=== PATIENT | male | born 1950 | race Caucasian/White ===

== ENCOUNTER → 2020-04-28 07:00 | Outpatient (CLI) | payer MEDICARE, OTHER, SELFPAY ==
[2020-04-13 09:46] VITALS: BMI 32.5
--- NOTE | 2020-04-28 07:01 | ECHOCS_ITS ---
Reason For Study: CAD/ASHD Procedure This was a 2D Doppler, Color Flow transthoracic echocardiogram. The study was technically difficult. Contrast injection was performed. Exam performed in department. Left Ventricle Normal LV size. Mild concentric left ventricular hypertrophy. Left ventricular systolic function is normal. The estimated ejection fraction is 65 %. Stage 2 diastolic dysfunction. No regional wall motion abnormalities noted. Right Ventricle Normal RV size. Normal systolic function. Atria Normal left atrium. Normal right atrium. Mitral Valve Normal mitral valve. Tricuspid Valve Normal tricuspid valve. Aortic Valve The aortic valve is not well visualized. Pulmonic Valve Normal pulmonic valve. Great Vessels Normal aortic root. The pulmonary artery is normal size. Normal inferior vena cava. Pericardium/Pleural No pericardial effusion. Medication Diluted definity 2ml given slow IV push to enhance endocardial definition. MMode/2D Measurements & Calculations LVIDd: 5.1 cm IVSd: 1.2 cm LA dimension: 4.4 cm LVIDs: 3.4 cm LVPWd: 1.3 cm RVDd: 3.9 cm FS: 32.5 % LAV(MOD-sp4): 54.9 ml LA A4 area: 19.2 cm2 RA A4 area: 15.6 cm2 Time Measurements MV dec time: 0.22 sec Doppler Measurements & Calculations MV E max stiven: 106.0 cm/sec Lat Peak E' Stiven: 8.7 cm/sec Med Peak E' Stiven: 8.8 cm/sec MV A max stiven: 63.3 cm/sec E/E' lat: 12.2 E/E' med: 12.1 MV E/A: 1.7 MV V2 max: 104.0 cm/sec MV P1/2t max stiven: 105.0 cm/sec Ao V2 max: 137.7 cm/sec MV max P.3 mmHg MV P1/2t: 121.9 msec Ao max P.6 mmHg MV V2 mean: 54.6 cm/sec MV dec slope: 252.1 cm/sec2 MV mean P.5 mmHg MV V2 VTI: 40.9 cm MVA(P1/2t): 1.8 cm2 LV V1 max: 133.3 cm/sec PA V2 max: 98.2 cm/sec LV V1 max P.1 mmHg Interpretation Summary Normal LV size. Left ventricular systolic function is normal. The estimated ejection fraction is 65 %. Mild concentric left ventricular hypertrophy. Stage 2 diastolic dysfunction. Contrast injection was performed. Ordering Physician: Newton Leon Referring Physician: Newton Leon Performed By: Tank Em RCS
--- NOTE | 2020-04-28 09:34 | STRESSREP ---
Stress Test Report Pharmacologic myocardial perfusion stress test. 70-year-old man with a history of coronary artery disease status post previous angioplasty and stenting of the left anterior descending artery. Medications: Aspirin, clopidogrel, carvedilol, losartan. Stress protocol: Resting EKG demonstrates sinus bradycardia with a rate of 57 bpm normal intervals are noted resting blood pressure is 102/62 mmHg. 0.4 mg of regadenoson was infused per usual protocol followed by rapid intravenous saline flush injection continuous EKG monitoring was performed. The maximum heart rate attained was 81 bpm which was 54% of maximum predicted heart rate the maximum workload was 1 metabolic equivalent. At rest there were no ST or T wave changes noted to suggest abnormal flow reserve at peak infusion nonspecific ST-T wave changes were noted with no meet the criteria for ischemia. Myocardial perfusion protocol. 14.9 mCi of technetium 99m sestamibi was injected at rest. 0.4 mg of regadenoson was infused per usual protocol. At peak infusion 45.0 mCi of technetium 99m sestamibi was injected stress images were obtained stress and rest images were reconstructed and compared in the short axis vertical long horizontal long axis. Gated images were also obtained Perfusion SPECT analysis: Review of the stress images demonstrate normal uptake of tracer noted in all areas of the myocardium the resting images similar demonstrate normal uptake of tracer noted in all areas of the myocardium. No areas of reversibility are noted suggest ischemia no previous infarct is noted. Gated SPECT analysis: The gated ejection fraction is 70%. Conclusion: Normal pharmacologic myocardial perfusion stress test. Preserved ejection fraction.
== END ==
PROVIDERS: Referring Provider Internal Medicine Cardiovascular Disease; Visit Provider Internal Medicine Cardiovascular Disease
DX: I25.10 Atherosclerotic heart disease of native coronary artery without angina pectoris (principal); Z95.5 Presence of coronary angioplasty implant and graft
CPT/HCPCS: 78452; 93017; 93306; A9500; Q9957; A4216; C8929; J2785

== ENCOUNTER → 2021-04-14 09:28 | Outpatient (CLI) | payer MEDICARE, OTHER, SELFPAY ==
[2021-04-14 11:29] LABS: AST(SGOT) 28 U/L (15-37); Alanine Aminotransfer ALT/SGPT 47 U/L (16-61); Albumin, Serum 3.7 g/dL (3.2-5.0); Alkaline Phosphatase 63 U/L (45-117); Cholesterol 116 mg/dL (200); Globulin 3.8 g/dL (2.2-4.2); High Density Lipoprotein 50 mg/dL; Protein, Total 7.5 g/dL (6.4-8.2); Triglycerides 82 mg/dL; Very Low Density Lipoprotein 16 mg/dL (5-40)
== END ==
PROVIDERS: Referring Provider Internal Medicine Cardiovascular Disease; Visit Provider Internal Medicine Cardiovascular Disease
DX: E78.00 Pure hypercholesterolemia, unspecified (principal); Z95.5 Presence of coronary angioplasty implant and graft; I25.10 Atherosclerotic heart disease of native coronary artery without angina pectoris
CPT/HCPCS: 36415; 80061; 80076

== ENCOUNTER → 2022-04-07 | Outpatient (CLI) | payer MEDICARE, OTHER, SELFPAY ==
[2022-04-07 13:58] LABS: AST(SGOT) 34 U/L (15-37); Alanine Aminotransfer ALT/SGPT 65 U/L (16-61); Albumin, Serum 3.8 g/dL (3.2-5.0); Alkaline Phosphatase 67 U/L (45-117); Bilirubin, Direct 0.32 mg/dL (0.00-0.30); Cholesterol 116 mg/dL (200); Globulin 3.5 g/dL (2.2-4.2); High Density Lipoprotein 54 mg/dL; Protein, Total 7.3 g/dL (6.4-8.2); Triglycerides 82 mg/dL; Very Low Density Lipoprotein 16 mg/dL (5-40)
== END | disposition home or self-care (01) ==
LOC: LAB 12:01
PROVIDERS: Referring Provider Internal Medicine Cardiovascular Disease; Visit Provider Internal Medicine Cardiovascular Disease
DX: E78.00 Pure hypercholesterolemia, unspecified (principal)
CPT/HCPCS: 36415; 80061; 80076

== ENCOUNTER → 2024-06-18 | Outpatient (CLI) | payer MEDICARE, SELFPAY ==
--- OUTSIDE RECORDS SUMMARY | 2024-06-18 06:45 | XMS RPT_ITS | CCD ---
Author Organization [facility] Inform ion [facility] Care Team Providers Care [employer] Manager Name Role Phone BordenFeNeelima Y Unavailable Anthony Elkins Attending Unavailable Noe Ham Referring Unavailable Noe Ham Primary Care Unavailable Anthony Elkins Admitting Unavailable Neelima Borden Unavailable Coty ALBRECHT, Stefany Hooper Unavailable Unavailable Darwin KENDRICK, Eduin Primary Care Provider [phone] IDA BOLTON Referring Unavailable DARWIN, EDUIN Primary Care Unavailable DARWIN, EDUIN Primary Care Unavailable VIJI IDA Referring Unavailable DARWIN, EDUIN Primary Care Unavailable VIJI IDA Referring Unavailable DARWIN, EDUIN Primary Care Unavailable VIJI IDA Referring Unavailable DARWIN, EDUIN Primary Care Unavailable IDA BOLTON Referring Unavailable DARWIN, EDUIN Primary Care Unavailable VIJI IDA Referring Unavailable DARWIN, EDUIN Primary Care Unavailable DARWIN, EDUIN Referring Unavailable DARWIN, EDUIN Referring Unavailable DARWIN, EDUIN Primary Care Unavailable Darwin KENDRICK, Eduin Primary Care Provider [phone] DARWIN, EDUIN Primary Care Unavailable ALBERT CARRANZA Attending Unavailab le DARWIN, EDUIN Referring Unavailable DARWIN, EDUIN Primary Care Unavailable SHAUN DELACRUZ Attending Unavailab le DARWIN, EDUIN Primary Care Unavailable SHAUN DELACRUZ Attending Unavailab le DARWIN, EDUIN Primary Care Unavailable SHAUN DELACRUZ Attending Unavailab le PROVIDER, UNKNOWN Referring Unavailable PROVIDER, UNKNOWN Primary Care Unavailable PROVIDER, UNKNOWN Primary Care Unavailable SHAUN DELACRUZ Referring Unavailab le PROVIDER, UNKNOWN Primary Care Unavailable IDA BOLTON Referring Unavailable PROVIDER, UNKNOWN Primary Care Unavailable ALBERT CARRANZA Referring Unavailab roxana PROVIDER, UNKNOWN Primary Care Unavailable IDA BOLTON Referring Unavailable ZULMA HOLBROOK Attending Unavailable SHAUN DELACRUZ Attending Unavailab SHAUN Grubbs Admitting Unavailab le PROVIDER, UNKNOWN Primary Care Unavailable PROVIDER, UNKNOWN Primary Care Unavailable Allergies Allergy Classification Reported Allergen(s) Allergy Type Date of Onset Reaction(s) Facility Contrast Media (1 source) Contrast media Substance Allergy [facility] Penicillins (antibiotic) (1 source) Amoxicillin Drug Allergy 7 [facility] Work Phone: telithromycin (1 source) telithromycin Drug Allergy [facility] (20 sources) amoxicillin; Translations: [AMOXICILLIN] drug allergy Rash [facility] Work Phone: [phone] (3 sources) CATH DYE drug allergy 1 Does ok with prept, Lips swelling [facility] Work Phone: [phone] (20 sources) Contrast media; Translations: [CONTRAST DYE] Propensity to adverse reactions [facility] Work Phone: (20 sources) telithromycin; Translations: [TELITHROMYCIN] Drug Allergy [facility] Work Phone: Medications Current Medications Medication Drug Class(es) Dates Sig (Normalized) Sig (Original) acetaminophen 325 mg / oxyCODONE hydrochloride 5 mg oral tablet (2 sources) Opioid Agonist Start: 06-29-2023 End: 07-13-2023 take 1-2 tablets by mouth every four hours as needed oxyCODONE-acetamin ophen (PERCOCET) 5-325 mg tablet Indications: pain Take 1-2 tablets by mouth every 4 hours as needed for up to 7 days. 28 tablet 0 06/29/2023 07/13/2023 Active Comment on above: Take 1-2 tablets by mouth every 4 hours as needed for up to 7 days. atorvastatin 40 mg oral tablet (20 sources) HMG-CoA Reductase Inhibitor Start: 03-14-2023 atorvastatin (LIPITOR) 40 mg tablet 03/14/2023 Active Start: 01-08-2015 take 1 tablet by olivia once daily ATORVASTATIN CALCIUM 40 MG TABS One tablet by mouth daily ATORVASTATIN CALCIUM [id number] Fatemeh Chavez PA-C 12 hr buPROPion hydrochloride 150 mg extended release oral tablet (14 sources) Aminoketone Start: 03-27-2023 buPROPion SR (ZYBAN SR; WELLBUTRIN SR) 150 mg 12 hr tablet 03/27/2023 Active cholecalciferol 0.025 mg oral tablet (14 sources) Vitamin D take 1 tablet by mouth once daily cholecalciferol (VITAMIN D) 1,000 unit tab tablet Take 1,000 Units by mouth once daily. Active Comment on above: Take 1,000 Units by mouth once daily. clopidogrel 75 mg oral tablet (20 sources) P2Y12 Platelet Inhibitor Start: 01-23-2007 take 1 tablet by mouth two times weekly clopidogrel (PLAVIX) 75 mg ORAL Tab Take 75 mg by mouth two times a week. Sun and 0 01/23/2007 Active Start: 01-23-2007 take 1 tablet by [facility] once daily clopidogrel (PLAVIX) 75 mg ORAL Tab Take one(1) tablet daily. 0 01/23/2007 Active Comment on above: Take one(1) tablet d aily. Take 75 mg by mouth two times a week. Sun and docusate sodium 100 mg oral capsule (13 sources) Start: 06-29-20 23 take 1 capsule by mouth twice daily docusate sodium (COLACE) 100 mg capsule Take 1 capsule by mouth two times a day. 40 capsule 06/29/2023 Active Comment on above: Take 1 capsule by [facility] two times a day. enalapril maleate 5 mg oral tablet (20 sources) Angiotensin Converting Enzyme Inhibitor Start: 01-24-20 07 enalapril (VASOTEC) 5 mg ORAL Tab Take by mouth. 0 01/23/2007 Active Comment on above: Take one(1) tablet t wice daily. Take by mouth. ibuprofen 200 mg oral tablet (11 sources) Nonsteroidal Anti-inflammatory Drug take 1 tablet by mouth every six hours as needed ibuprofen (MOTRIN) 200 mg tablet Take 200 mg by mouth every 6 hours as needed for pain. Active Comment on above: Take 200 mg by mouth every 6 hours as needed for pain. multivitamin tablet (20 sources) take 1 tablet by mouth once daily multivitamin tablet Take 1 tablet by mouth once daily. Active take 1 tablet by mouth once ben y multivitamin tablet Take 1 tablet by mouth once daily. 0 Active Comment on above: Take 1 tablet by olivia th once daily. ondansetron 4 mg oral tablet (13 sources) Serotonin-3 Receptor Antagonist Start: take 1 tablet by mouth every eight hours as needed ondansetron (ZOFRAN) 4 mg tablet Take 1 tablet by mouth every 8 hours as needed. 10 tablet 06/29/2023 Active Comment on above: Take 1 tablet by olivia th every 8 hours as needed. vit C/E/Zn/coppr/lutein/z eaxan (PRESERVISION AREDS-2 ORAL) (14 sources) vit C/E/Zn/coppr/lutein/ zeaxan (PRESERVISION AREDS-2 ORAL) Take by mouth. Active vit C/E/Zn/coppr /lutein/zeaxan (PRESERVISION AREDS-2 ORAL) Take by mouth. 0 Active Comment on above: Take by mouth. Completed/Discontinued Medications Medication Drug Class(es) Dates Sig (Normalized) Sig (Original) ascorbic acid 1000 mg oral tablet (17 sources) Vitamin C Start: 09-10-2015 take 1 tablet by mouth once daily VITAMIN C 1000 MG TABS One tablet by mouth daily ASCORBIC ACID [id number] Newton Leon MD take 500 mg by mouth once daily Ascorbic Acid (VITAMIN C) 500 mg chew Take 500 mg by mouth once daily. Active Comment on above: Take 500 mg by mouth once daily. aspirin 325 mg oral tablet (20 sources) Platelet Aggregation Inhibitor, Nonsteroidal Anti-inflammatory Drug Start: 01-03-2011 take 1 tablet by mouth once daily ASPIRIN 325 MG TABS One tablet by mouth daily ASPIRIN [id number] Tammy Liu Start: 01-03-2011 take 1 tablet by olivia th once daily ASPIRIN EC 81 MG TBEC One tablet by mouth daily ASPIRIN [id number] MARIOLA SanchezC take 1 tablet by olivia th once daily aspirin 81 mg chewable tablet Take 81 mg by mouth once daily. Active Comment on above: Take 81 mg by mouth once daily. carvedilol 6.25 mg oral tablet (20 sources) alpha-Adrenergic Giovanna, beta-Adrenergic Giovanna Start: 01-03-2011 take 1 tablet by mouth twice daily COREG 6.25 MG TABS One tablet by mouth twice daily CARVEDILOL [id number] Fatemeh Chavez PA-C take 3.125 mg by olivia th twice daily at mealtime carvedilol (COREG) 6.25 mg tablet Take 3.125 mg by mouth twice daily with meals. Active Comment on above: Take 3.125 mg by olivia th twice daily with meals. losartan potassium 100 mg oral tablet (20 sources) Angiotensin 2 Receptor Giovanna Start: 03-20-2013 take 1 tablet by mouth once daily LOSARTAN POTASSIUM 100 MG TABS One tablet by mouth daily LOSARTAN POTASSIUM [id number] Newton Leon MD Start: 03-20-2013 take 1 tablet by olivia th once daily LOSARTAN POTASSIUM 50 MG TABS One tablet by mouth daily LOSARTAN POTASSIUM [id number] Fatemeh Chavez PA-C Comment on above: Take by mouth. MULTIPLE VITAMIN (1 source) Start: 01-04-20 11 take 1 tablet by mouth once daily MULTIVITAMINS TABS One tablet by mouth daily MULTIPLE VITAMIN [id number] Tammy Liu MULTIPLE VITAMIN (2 sources) Start: 01-04-20 11 take 1 tablet by mouth once daily MULTIVITAMINS TABS One tablet by mouth daily MULTIPLE VITAMIN [id number] Tammy Liu 24 hr nitroglycerin 0.4 mg/hr transdermal system (20 sources) Nitrate Vasodilator Start: 01-04-20 11 NITROGLYCERIN 0.4 MG/HR PT24 1 tablet under tongue every 5 min up to 3 X NITROGLYCERIN [id number] Tammy Liu Start: 01-23-2007 nitroglycerin sublingual 0.4 mg SUBLINGUAL Subl Dissolve under the tongue. Usual dose for angina is 1 tablet every 5 minutes for maximum of 3 doses in 15 minutes. 0 01/23/2007 Active Comment on above: Dissolve one(1) tabl et under the toungue as needed for chest pain,every 5 min x3 Dissolve under the t ongue. Usual dose for angina is 1 tablet every 5 minutes for maximum of 3 doses in 15 minutes. olmesartan medoxomil 40 mg oral tablet (6 sources) Angiotensin 2 Receptor Giovanna Start: 1 End: 3 take 1 tablet by mouth once daily BENICAR 40 MG TABS One tablet by mouth daily OLMESARTAN MEDOXOMIL [id number] Newton Leon MD rosuvastatin calcium 20 mg oral tablet (20 sources) HMG-CoA Reductase Inhibitor Start: 1 take 1 tablet by mouth once daily CRESTOR 10 MG TABS One tablet by mouth daily ROSUVASTATIN CALCIUM [id number] Tammy Liu Start: 01-23-2007 End: 01-08-2015 rosuvastatin (CRESTOR) 20 mg ORAL Tab Take by mouth. 0 01/23/2007 Active Comment on above: Take one(1) tablet d aily. Take by mouth. 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] Onset: 01-03-2011 01-03-2011 Chronic Coronary atherosclerosis and other heart disease (20 sources) Atherosclerotic heart disease of [place] coronary artery without angina pectoris; Translations: [Coronary arteriosclerosis] Onset: 01-03-2011 Resolved: 09-10-2015 10-05-2016 Chronic Diseases of white blood cells (2 sources) Leukocytosis; Translations: [Elevated white blood cell count, unspecified] Onset: 2024 2024 Chronic Disorders of lipid metabolism (19 sources) Hyperlipidemia; Translations: [Hyperlipidemia, unspecified] Onset: 01-03-2011 01-03-2011 Chronic Esophageal disorders (6 sources) Gastroesophageal reflux disease; Translations: [Gastro-esophageal reflux disease without esophagitis] Onset: 01-03-2011 Resolved: 09-10-2015 01-03-2011 Chronic Essential hypertension (20 sources) Hypertensive disorder; Translations: [Essential hypertension] Onset: 01-03-2011 01-03-2011 Chronic Other connective tissue disease (2 sources) History of operative procedure on shoulder; Translations: [Presence of unspecified artificial shoulder joint] 05-14-2023 Chronic Other connective tissue disease (18 sources) History of reverse prosthetic total arthroplasty of left shoulder; Translations: [Presence of left artificial shoulder joint] Onset: 07-09-2023 07-09-2023 Chronic Other connective tissue disease (2 sources) Presence of left artificial shoulder joint; Translations: [Status post reverse total replacement of left shoulder] Onset: 06-29-2023 Chronic Other connective tissue disease (1 source) Presence of unspecified artificial shoulder joint; Translations: [Status post reverse total shoulder replacement, unspecified laterality] Onset: 07-06-2023 Chronic Other connective tissue disease (1 source) Rotator cuff arthropathy of left shoulder; Translations: [Unspecified rotator cuff tear or rupture of left shoulder, not specified as traumatic] 05-14-2023 Episodic Other hematologic conditions (1 source) Other abnormality of red blood cells; Translations: [Other abnormality of red blood cells] Onset: 01-03-2024 Episodic Other hematologic conditions (1 source) Erythrocytosis; Translations: [Secondary polycythemia] 2024 Episodic Other hematologic conditions (1 source) Secondary polycythemia; Translations: [Erythrocytosis] Onset: 2024 Episodic Other nervous system disorders (2 sources) Other chronic pain; Translations: [Chronic left shoulder pain] Onset: 04-27-2023 Chronic Other non-traumatic joint disorders (5 sources) Chronic pain of left upper limb; Translations: [Pain in left shoulder] 04-02-2023 Episodic Other non-traumatic joint disorders (4 sources) Stiffness of left shoulder; Translations: [Stiffness of left shoulder, not elsewhere classified] 07-16-2023 Episodic Other nutritional; endocrine; and metabolic disorders (6 sources) Body mass index (BMI) 30.0-30.9, adult; Translations: [Body mass index (BMI) 31.0-31.9, adult] Onset: 07-02-2014 04-12-2017 Chronic Other nutritional; endocrine; and metabolic disorders (2 sources) Body mass index (BMI) 31.0-31.9, adult; Translations: [Body mass index (BMI) 31.0-31.9, adult] Onset: 07-02-2014 04-13-2016 Chronic Other nutritional; endocrine; and metabolic disorders (2 sources) Body mass index (BMI) 32.0-32.9, adult; Translations: [Body mass index (BMI) 32.0-32.9, adult] Onset: 07-02-2014 07-02-2014 Chronic Other nutritional; endocrine; and metabolic disorders (2 sources) Body mass index 30+ - obesity; Translations: [Body mass index (BMI) 30.0-30.9, adult] Onset: 07-02-2014 09-10-2015 Chronic Other nutritional; endocrine; and metabolic disorders (15 sources) Suyil-9-ebkuqzbjqrx deficiency; Translations: [Vdcfz-0-rcdkbnjurjj deficiency] Onset: 06-13-2023 06-13-2023 Chronic Other nutritional; endocrine; and metabolic disorders (1 source) Dkrvf-9-gihbpvhtgwv deficiency; Translations: [Heterozygous alpha 1-antitrypsin deficiency (HCC)] Onset: 06-13-2023 Chronic Substance-related disorders (3 sources) Tobacco dependence syndrome; Translations: [Nicotine dependence, unspecified, uncomplicated] Onset: 01-03-2011 01-03-2011 Chronic Substance-related disorders (16 sources) Tobacco dependence caused by cigarettes; Translations: [Nicotine dependence, cigarettes, with other nicotine-induced disorders] Onset: 07-14-2015 06-13-2023 Chronic Unclassified (2 sources) Long-term drug therapy; Translations: [Other half-way (current) drug therapy] Onset: 01-03-2011 01-03-2011 Unclassified (1 source) Physical Therapy Onset: 08-06-2023 Past or Other Problems Problem Classification Problem Date Documented Date Episodic/Chronic Allergic reactions (15 sources) Allergy to bee venom; Translations: [Bee allergy status] Onset: 3 06-13-2023 Episodic Appendicitis and other appendiceal conditions (5 sources) Acute appendicitis; Translations: [Unspecified acute appendicitis] Onset: 6 Resolved: 6 03-15-2016 Episodic Cardiac dysrhythmias (1 source) Bradycardia, unspecified; Translations: [Severe sinus bradycardia] Onset: Episodic Coronary atherosclerosis and other heart disease (5 sources) Coronary angioplasty status; Translations: [History of myocardial infarction] Onset: 1 01-03-2011 Episodic Diabetes mellitus without complication (1 source) Impaired fasting glucose; Translations: [Impaired fasting glucose] Onset: 3 Episodic Other aftercare (1 source) Other intermediate manager (current) drug therapy; Translations: [Other half-way (current) drug therapy] Onset: 1 01-03-2011 Episodic Other lower respiratory disease (6 sources) Dyspnea; Translations: [Dyspnea, unspecified] Onset: 1 Resolved: 6 09-10-2015 Episodic Other non-traumatic joint disorders (19 sources) Pain in left shoulder; Translations: [Pain in joint, shoulder region] Onset: 3 07-06-2023 Episodic Other non-traumatic joint disorders (1 source) Stiffness of left shoulder, not elsewhere classified; Translations: [Shoulder stiffness, left] Onset: 3 Episodic Other nutritional; endocrine; and metabolic disorders (6 sources) Body mass index (BMI) 29.0-29.9, adult; Translations: [Body mass index (BMI) 29.0-29.9, adult] Onset: 5 Resolved: 6 01-05-2015 Episodic Other screening for suspected conditions (not mental disorders or infectious disease) (7 sources) Electrocardiogram abnormal; Translations: [History of myocardial infarction] Onset: 1 Resolved: 6 09-10-2015 Episodic Residual codes; unclassified (3 sources) Family history of ischemic heart disease and other diseases of the circulatory system; Translations: [Family history of ischemic heart disease and other diseases of the circulatory system] 07-02-2014 Episodic Results Test Name Value Interpretation Reference Range Facility BCR/ABL1 P190 NCN P210 % IS MR Cardenas 2024 BCR/ABL1 P190 NCN(%BCR/ABL1:ABL1) N/A Normal [facility] Comment on above: Order Comment: Speci men Type: BLOOD SPECIMENOrdering Facility: [facility] Address: [address] [place] [address] Performed By: #### I SMROKHIREN ####[facility] LABCLIA [id number] [id number] [place]#### [id number] ####CLAR[facility] ILLUMINA LIMSCLIA [id number] [place] [address] [place] BCR/ABL1 P210 %IS N/A Normal [facility] Comment on above: Order Comment: Speci men Type: BLOOD SPECIMENOrdering Facility: [facility] Address: [address] [place] [address] Performed By: #### I SMRNCNPB ####[facility] LABCLIA [id number] [place] [address] [place]#### [id number] ####[facility] ILLUMINA LIMSCLIA [id number] [place] [address] [place] BCR/ABL1 P210 MR N/A [facility] Comment on above: Order Comment: Speci men Type: BLOOD SPECIMENOrdering Facility: [facility] Address: [address] [place] [address] Performed By: #### I SMRNCNPB ####[facility] LABCLIA [id number] [place] [address] [place]#### [id number] ####CL[facility] ILLUMINA LIMSCLIA [id number] [place] [address] [place] BCR/ABL1 P210 AND P190 DIAGN OSTIC PCR BLOODon 2024 BCR/ABL1 P210 AND P190 DIAGNOSTIC PCR BLOOD RESULT Normal [facility] Comment on above: Order Comment: Speci men Type: BLOOD SPECIMEN Ordering Facility: [facility] Address: [address] [place] [address] Result Comment: BCR/ ABL1 p210 and p190 Diagnostic PCR Laboratory Accession Number: [id number] Sample Type: Peripheral Blood Result: NOT DETECTED; negative for BCR/ABL1 p210 and p190 fusion transcripts. P190 NCN: N/A P210 MR: N/A %IS: N/A Interpretation: RT-PCR studies are negative for BCR/ABL1 p210 and p190 fusion transcripts. Very rare fusion transcripts, such as those involving exon 3 of ABL1 and alternate BCR fusion sites including the micro- breakpoint cluster region (p230 transcript), are not detected by this test. If clinical suspicion persists despite a negative test, the possibility of these very rare fusions can be further evaluated. In these cases, a bone marrow biopsy with cytogenetic karyotyping may be performed, followed by other more specific testing as clinically warranted and in consultation with the case hematopathologist and/or Molecular Pathology sign-out Staff. Limitations: This test detects the most common fusion transcripts, p210 (e13a2, e14a2) and p190 (e1a2, e1a3), which combined account for about 98-99 percent of BCR/ABL1 positive chronic myeloid leukemia and B-acute lymphoblastic leukemia/lymphoma cases. Other very rare fusion transcripts, such as those involving exon 3 of ABL1 and alternate BCR fusion sites including the micro-breakpoint cluster region (p230 transcript), are not detected by this test. Methodology: RNA was extracted from this sample, and cDNA prepared by reverse business development sales executive. Real time PCR was performed in two separate reactions, using primers for e13a2 and/or e14a2 BCR/ABL1 fusion transcripts and ABL1 transcripts for p210 detection and primers for e1a2 BCR/ABL1 fusion transcripts and ABL1 transcripts for p190 detection (QuantideX BCR/ABL IS assay, [employer], [place], [place]). This assay has a limit of quantification and limit of detection of 0.002 percent IS or MR4.7 for p210 fusion transcripts, and a limit of quantification of 0.0036 percent (LR4.4) and limit of detection of 0.0025 percent (LR4.6) for p190 transcripts. Levels detected above or below the assays' limits of quantitation are resulted as DETECTED and quantitation indicated as greater than or less than the limits of quantitation for the IS percent, MR level and NCN, respectively. Disclaimer: This test was developed and its performance characteristics determined by [facility] [place] ([facility]). It has not been cleared or approved by the FDA. [facility] is regulated under CLIA as certified to perform high- complexity testing. This test is used for clinical purposes. It should not be regarded as investigational or for research. Testing and interpretation performed at [facility], [address] [place] [id number]. CLIA Number: [id number] As reviewed by Jorge Grady MD Performed By: #### I SMRNCNPB #### [facility] LAB CLIA [id number] [address] [place] [address] [place] #### BCRPB1 #### [facility] LIMS CLIA [id number] [address] [place], [place] [id number] [facility] [place] CNOVSPon 2024 CNOVSP Visit (SP) Office (HEMMED) MATTEO THOMPSON ([id number]) 1950 [address] [facility] Date Time Provider Department 02/13/24 9:30 AM ALBERT CARRANZA HEMMED During your visit today, we recorded the following information about you: Temperature Pulse Respiration Blood pressure 97.2 degrees 68/minute 16/minute 127/75 Weight 98.3 kg Albert Carranza MD 2024 1:53 PM Signed HISTORY OF PRESENT ILLNESS: Matteo Thompson is a 73 year old male referred for abnormal CBC. Patient reports being at his baseline state of health. Previously had some intended weight loss (10 lbs) But no weight loss recently. He is a long-term smoker but is down to 5 cigarettes/day. He also drinks about 5-7 drinks of alcohol per week (sometimes more socially). ASSESSMENT/PLAN: #Intermittent mild leukocytosis #Erythrocytosis #Intermittent mild thrombocytopenia His abnormal lab values have been at least intermittently present for the better part of the past decade which is overall reassuring. I suspect the leukocytosis and erythrocytosis is 2/[address] A/P from 2016 dmeonstrated hepatic steatosis, therefore suspect his mild thrombocytopenia is 2/2 liver disease. When corrected for albumin, his calcium level is normal. Regardless, will obtain lab work to help rule-out more concerning diagnoses. If negative, would not recommend phlebotomy unless hct >55% and even then the clinical benefit is controversial. -BCR/ABL, MPN panel, EPO level Follow-up as needed if above work-up is negative Medical Decision Making: Problems: Moderate: New problem with uncertain prognosis Data: Unique source(s) for external note(s) reviewed: 1 Unique test result(s) reviewed: 1 Unique test(s) ordered: 1 Medical Decision Making Level: 4 - Moderate Written and verbal health teaching given to patient, patient verbalizes understanding and agrees with treatment plan. PAST MEDICAL HISTORY Diagnosis Date Appendicitis, acute 02/11/2016 Chronic obstructive pulmonary disease (COPD) (HCC) Coronary artery disease Heart attack (HCC) HLD (hyperlipidemia) Hypertension PAST SURGICAL HISTORY Procedure Laterality Date APPENDECTOMY 02/11/2016 CARDIAC CATHETERIZATION HX 2005 stent HERNIA REPAIR HX 2010 laparoscopic - unsure ORTHOPEDICS SURGERY HX Left knee FAMILY HISTORY Problem Relation Age of Onset Anesthesia Problems No Family History Social History Tobacco Use Smoking status: Every Day Packs/day: 0.50 Years: 30.00 Additional pack years: 0.00 Total pack years: 15.00 Types: Cigarettes Vaping Use Vaping Use: Never used Substance Use Topics Alcohol use: Yes Alcohol/week: 3.0 standard drinks of alcohol Types: 3 Cans of Beer (12oz) per week ALLERGIES: ALLERGIES Allergen Reactions Amoxicillin Rash Contrast Dye Swelling Ketek [Telithromyci* Rash CURRENT OUTPATIENT MEDICATIONS: ibuprofen (MOTRIN) 200 mg tablet Take 200 mg by mouth every 6 hours as needed for pain. docusate sodium (COLACE) 100 mg capsule Take 1 capsule by mouth two times a day. ondansetron (ZOFRAN) 4 mg tablet Take 1 tablet by mouth every 8 hours as needed. atorvastatin (LIPITOR) 40 mg tablet buPROPion SR (ZYBAN SR; WELLBUTRIN SR) 150 mg 12 hr tablet losartan (COZAAR) 50 mg tablet Take by mouth. cholecalciferol (VITAMIN D) 1,000 unit tab tablet Take 1,000 Units by mouth once daily. Ascorbic Acid (VITAMIN C) 500 mg chew Take 500 mg by mouth once daily. vit C/E/Zn/coppr/lutein/ze axan (PRESERVISION AREDS-2 ORAL) Take by mouth. aspirin 81 mg chewable tablet Take 81 mg by mouth once daily. carvedilol (COREG) 6.25 mg tablet Take 3.125 mg by mouth twice daily with meals. multivitamin tablet Take 1 tablet by mouth once daily. rosuvastatin (CRESTOR) 20 mg ORAL Tab Take by mouth. enalapril (VASOTEC) 5 mg ORAL Tab Take by mouth. clopidogrel (PLAVIX) 75 mg ORAL Tab Take 75 mg by mouth two times a week. Mon and Th nitroglycerin sublingual 0.4 mg SUBLINGUAL Subl Dissolve under the tongue. Usual dose for angina is 1 tablet every 5 minutes for maximum of 3 doses in 15 minutes. REVIEW OF SYSTEMS: Review of systems unremarkable except as noted in the HPI. PHYSICAL EXAMINATION: VITAL SIGNS: There were no vitals taken for this visit. Physical Exam Constitutional: General: He is not in acute distress. Appearance: Normal appearance. HENT: Head: Normocephalic and atraumatic. Eyes: Extraocular Movements: Extraocular movements intact. Pulmonary: Effort: Pulmonary effort is normal. No respiratory distress. Skin: Coloration: Skin is not jaundiced. Neurological: General: No focal deficit present. Mental Status: He is alert. Mental status is at baseline. LABS: Basic Labs: Hemoglobin Date Value Ref Range Status 01/03/2024 17.2 (H) 13.0 - 17.0 g/dL Final 05/25/2023 16.8 13.0 - 17.0 g/dL Final 0 (more content not included)... Normal [facility] EPO SerPl-aCncon 2024 Erythropoietin (EPO) Qn 7.5 mIU/mL Normal 2.6-18.5 [facility] Comment on above: Order Comment: [place] Type: BLOOD SPECIMEN Ordering Facility: [facility] Address: [address] [place] [address] Performed By: #### 1 5061-5 #### [facility] CLIA [id number] [address] [place], [place] [address] [place] [address] [place] MYELOPROLIFERATIVE NEOPLASM PANEL BLOODon 2024 MYELOPROLIFERATIVE NEOPLASM PNL PERIPHERAL BLOOD Normal [facility] Comment on above: Order Comment: [place] Type: BLOOD SPECIMENOrdering Facility: [facility] Address: [address] [place] [address] Result Comment: Myel oproliferative Neoplasm Panel Laboratory Accession Number: [id number] Sample Type: Peripheral Blood Result: CALR - No variant detected (Reference sequence: [id number]). JAK2 - No variant detected (Reference sequence: [id number]). MPL - No variant detected (Reference sequence: [id number]). Interpretation: No variants were identified in CALR exon 9, JAK2 exons 12-16 or MPL exons 10 and 11. This result does not exclude the possibility of a myeloproliferative neoplasm. If clinically indicated, additional testing for a broader panel of myeloid neoplasm-associated mutations (i.e., Hematologic Neoplasms NGS panel) may be helpful to further assess for clonal hematopoiesis. Methodology: Genomic DNA extracted from blood or bone marrow was subject to an amplicon based method to enrich for CALR exon 9, JAK2 exons 12-16 and MPL exons 10 and 11, including the flanking canonical splicing sites. Pair-end DNA sequencing was performed on the Illumina instrument ([place], [place]). A customized bioinformatic pipeline was used to align the sequencing reads to the reference human genome (GRCh37/hg19). Benign common polymorphisms are not reported. Limitations: Sequence changes outside the analyzed regions, including intronic, noncoding, and splice-site variants, will not be identified by this test. The lower limit of detection of this assay is approximately 1% allele proportion for the JAK2 V617F, JAK2 exon 12, CALR Type 1 (p.N277Rio38, c.1099_1150del) and Type 2 (p.G580Bcw63, c.1154_1155insTTGTC), MPL W515 variants and approximately 5% allele proportion for all other variants. Variants below these limits of detection may be reported at the discretion of the molecular pathology professional staff if the technical quality of the sequencing is sufficient at that location and the call is unequivocal. Common germline polymorphisms are considered to represent wild type sequence and are not included in this report. The presence of nucleotide polymorphisms or variants at the annealing sites of the primers used in amplification and sequencing may cause allele drop-outs, hence a false negative result is possible. Disclaimer: This test was developed and its performance characteristics determined by [facility] [place] ([facility]). It has not been cleared or approved by the FDA. [facility] is regulated under CLIA as certified to perform high- complexity testing. This test is used for clinical purposes. It should not be regarded as investigational or for research. Testing and interpretation performed at [facility], [address] [place] [address]. [place] Number: [id number] References: 1) Chani DA, Debbie A, Lolita R, Chris J, Ban MJ, Roxana Kowalski MM, et al. The 2016 revision to the World Health Organization (WHO) classification of myeloid neoplasms and acute leukemia. Blood 2016;127: 2391-405. 2) NCCN Guidelines, Myeloproliferative Neoplasms, Version 2.2018. 3) Cesar Juarez, Hudson HERRERA. Genomics of Myeloproliferative Neoplasms. J Clin Oncol. 2017 Nov 13;35(9):947-954. As reviewed by Soni Jeffrey, PhD, HCLD Performed By: #### M PNP ####[facility] [id number] [address] OF [facility] Catalino 01-28-2024 CNPN Telephone (HEMAWS) MATTEO THOMPSON ([id number]) 1950 [address] [facility] Date Time Provider Department 01/28/24 BENJAMIN SCHMITT During your visit today, we recorded the following information about you: Ana Paula Quiroz 01/28/2024 8:55 AM Signed Patient called stating Dr. Granados referred him to hem/onc. No orders/referral listed. Please advise. 09/18/23 office visit shows visit diagnosis - Visit Diagnoses Tobacco abuse counseling Body mass index [BMI] 36.0-36.9, adult Athscl heart disease of [place] coronary artery w/o ang pctrs Chronic obstructive pulmonary disease, unspecified Vitamin D deficiency, unspecified Impaired fasting glucose Hyperlipidemia, unspecified Other thrombophilia Bee allergy status Hyperparathyroidism, unspecified Chronic diastolic (congestive) heart failure Abnormal radiologic findings on dx imaging of r kidney Hypercalcemia Nicotine dependence, cigarettes, w oth disorders Primary generalized (osteo)arthritis Bradycardia, unspecified Alcohol use, unsp with unspecified alcohol-induced disorder Other abnormality of red blood cells Essential (primary) hypertension Elevated white blood cell count, unspecified Barb Malik LPN 01/28/2024 8:58 AM Addendum Patient will need to have a referral sent from that office. Dr. Granados is not a F physician. DIMPLE Astudillo, Ana Paula 01/28/2024 9:22 AM Signed Spoke with Dr. Granados's office. They will fax labs and referral to [facility]. She will fax last office visit note once provider signs it. Bing Gregg LPN 01/29/2024 8:41 AM Signed New Pt. Referral, pt. Contacted and informed he would rather be seen in [place] since it is closer to his home. Contacted Dr. Bethea office to have information sent to [facility] [place]. DIMPLE Dee Jennifer 01/29/2024 8:57 AM Signed Called patient and gave him the number to call for new patient consult. Allergies As of Date: 01/28/2024 Noted Allergy Reaction AMOXICILLIN 01/23/2007 2 - Rash CONTRAST DYE 01/23/2007 7 - Swelling KETEK (TELITHROMYCIN) 01/23/2007 2 - Rash Date Reviewed: 08/10/2023 Reviewed by: Lacey Meadows MA - Fully Assessed Reason for Visit: New Patient [172] Prescriptions as of 02/06/2024 - ibuprofen (MOTRIN) 200 mg tablet Take 200 mg by mouth every 6 hours as needed for pain. - docusate sodium (COLACE) 100 mg capsule Take 1 capsule by mouth two times a day. - ondansetron (ZOFRAN) 4 mg tablet Take 1 tablet by mouth every 8 hours as needed. - atorvastatin (LIPITOR) 40 mg tablet - buPROPion SR (ZYBAN SR; WELLBUTRIN SR) 150 mg 12 hr tablet - losartan (COZAAR) 50 mg tablet Take by mouth. - cholecalciferol (VITAMIN D) 1,000 unit tab tablet Take 1,000 Units by mouth once daily. - Ascorbic Acid (VITAMIN C) 500 mg chew Take 500 mg by mouth once daily. - vit C/E/Zn/coppr/lutein/ze axan (PRESERVISION AREDS-2 ORAL) Take by mouth. - aspirin 81 mg chewable tablet Take 81 mg by mouth once daily. - carvedilol (COREG) 6.25 mg tablet Take 3.125 mg by mouth twice daily with meals. - multivitamin tablet Take 1 tablet by mouth once daily. - rosuvastatin (CRESTOR) 20 mg ORAL Tab Take by mouth. - enalapril (VASOTEC) 5 mg ORAL Tab Take by mouth. - clopidogrel (PLAVIX) 75 mg ORAL Tab Take 75 mg by mouth two times a week. Mon and Thurs - nitroglycerin sublingual 0.4 mg SUBLINGUAL Subl Dissolve under the tongue. Usual dose for angina is 1 tablet every 5 minutes for maximum of 3 doses in 15 minutes. 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 Encounter Status:Closed by ANA PAULA QUIROZ on 02/06/24 Normal [facility] CBC W Auto Differential pane l (Bld)on 01-03-2024 Basophils (Bld) [#/Vol] 0.05 10*3/uL Normal <0.11 [facility] Comment on above: Order Comment: Speci men Type: BLOOD SPECIMEN Ordering Facility: Rufus Granados MD Address: [address] [place] [address] Performed By: #### 5 7021-8 #### [facility] CLIA [id number] [address] [place] [address] [place] Basophils/100 WBC (Bld) 0.4 % Normal [facility] Comment on above: Order Comment: Speci men Type: BLOOD SPECIMEN Ordering Facility: Rufus Granados MD Address: [address] [place] [address] Performed By: #### 5 7021-8 #### [facility] CLIA [id number] [address] [place] [address] [place] Differential cell count method Nom (Bld) Auto Normal [facility] Comment on above: Order Comment: Speci men Type: BLOOD SPECIMEN Ordering Facility: Rufus Granados MD Address: [address] [place] [address] Performed By: #### 5 7021-8 #### [facility] CLIA [id number] [address] [place] [id number] [place] Eosinophils (Bld) [#/Vol] 0.22 10*3/uL Normal <0.46 [facility] Comment on above: Order Comment: Speci men Type: BLOOD SPECIMEN Ordering Facility: Rufus Granados MD Address: [address] [place] [address] Performed By: #### 5 7021-8 #### [facility] CLIA [id number] [address] [place] Eosinophils/100 WBC (Bld) 1.9 % Normal [facility] Comment on above: Order Comment: Speci men Type: BLOOD SPECIMEN Ordering Facility: Rufus Granados MD Address: [address] [place] [address] Performed By: #### 5 7021-8 #### [facility] CLIA [id number] [address] [place] Erythrocyte distribution width (RBC) [Ratio] 12.8 % Normal 11.5-15.0 [facility] Comment on above: Order Comment: Speci men Type: BLOOD SPECIMEN Ordering Facility: Rufus Granados MD Address: [address] [place], [place] [address] Performed By: #### 5 7021-8 #### [facility] CLIA [id number] [address] [place] [address] [place] Hematocrit (Bld) [Volume fraction] 51.2 % High 39.0-51.0 [facility] Comment on above: Order Comment: Speci men Type: BLOOD SPECIMEN Ordering Facility: Rufus Granados MD Address: [address] [place] [address] Performed By: #### 5 7021-8 #### [facility] CLIA [id number] [address] [place] [address] [place] Hemoglobin (Bld) [Mass/Vol] 17.2 g/dL High 13.0-17.0 [facility] Comment on above: Order Comment: Speci men Type: BLOOD SPECIMEN Ordering Facility: Rufus Granados MD Address: [address] [place] [address] Performed By: #### 5 7021-8 #### [facility] CLIA [id number] [address] [place] [address] [place] Immature granulocytes (Bld) [#/Vol] 0.04 10*3/uL Normal <0.10 [facility] Comment on above: Order Comment: Speci men Type: BLOOD SPECIMEN Ordering Facility: Rufus Granados MD Address: [address] [place] [address] Performed By: #### 5 7021-8 #### [facility] CLIA [id number] [address] [place] [address] [place] Immature granulocytes/100 WBC (Bld) 0.3 % Normal [facility] Comment on above: Order Comment: Speci men Type: BLOOD SPECIMEN Ordering Facility: Rufus Granados MD Address: [address] [place] [address] Performed By: #### 5 7021-8 #### [facility] CLIA [id number] [address] [place] [address] [place] Lymphocytes (Bld) [#/Vol] 2.70 10*3/uL Normal 1.00-4.00 [facility] Comment on above: Order Comment: Speci men Type: BLOOD SPECIMEN Ordering Facility: Rufus Granados MD Address: [address] [place] [address] Performed By: #### 5 7021-8 #### [facility] CLIA [id number] [address] [place] [address] [facility] Lymphocytes/100 WBC (Bld) 23.1 % Normal [facility] Comment on above: Order Comment: Speci men Type: BLOOD SPECIMEN Ordering Facility: Rufus Granados MD Address: [address] [place] [address] Performed By: #### 5 7021-8 #### [facility] CLIA [id number] [address] [place] [address] [place] MCH (RBC) [Entitic mass] 34.3 pg High 26.0-34.0 [facility] Comment on above: Order Comment: Speci men Type: BLOOD SPECIMEN Ordering Facility: Rufus Granados MD Address: [address] [place] [address] Performed By: #### 5 7021-8 #### [facility] CLIA [id number] [address] STATES OF [facility] MCHC (RBC) [Mass/Vol] 33.6 g/dL Normal 30.5-36.0 [facility] Comment on above: Order Comment: Speci men Type: BLOOD SPECIMEN Ordering Facility: Rufus Granados MD Address: [address] [place] [address] Performed By: #### 5 7021-8 #### [facility] CLIA [id number] [address] [place] [id number] [place] MCV (RBC) [Entitic vol] 102.0 fL High 80.0-100.0 [facility] Comment on above: Order Comment: Speci men Type: BLOOD SPECIMEN Ordering Facility: Rufus Granados MD Address: [address] [place] [address] Performed By: #### 5 7021-8 #### [facility] CLIA [id number] [address] [place] [address] [place] Monocytes (Bld) [#/Vol] 1.06 10*3/uL High <0.87 [facility] Comment on above: Order Comment: Speci men Type: BLOOD SPECIMEN Ordering Facility: Rufus Granados MD Address: [address] [place] [address] Performed By: #### 5 7021-8 #### [facility] CLIA [id number] [address] [place] [address] [place] Monocytes/100 WBC (Bld) 9.1 % Normal [facility] Comment on above: Order Comment: Speci men Type: BLOOD SPECIMEN Ordering Facility: Rufus Granados MD Address: [address] [place] [address] Performed By: #### 5 7021-8 #### [facility] CLIA [id number] [address] [place] [address] [place] Neutrophils (Bld) [#/Vol] 7.61 10*3/uL High 1.45-7.50 [facility] Comment on above: Order Comment: Speci men Type: BLOOD SPECIMEN Ordering Facility: Rufus Granados MD Address: [address] [place] [address] Performed By: #### 5 7021-8 #### [facility] CLIA [id number] [address] [place] [address] [place] Neutrophils/100 WBC (Bld) 65.2 % Normal [facility] Comment on above: Order Comment: Speci men Type: BLOOD SPECIMEN Ordering Facility: Rufus Granados MD Address: [address] [place] [address] Performed By: #### 5 7021-8 #### [facility] CLIA [id number] [address] [place] [address] [place] Nucleated RBC (Bld) [#/Vol] Normal [facility] Comment on above: Order Comment: Speci men Type: BLOOD SPECIMEN Ordering Facility: Rufus Granados MD Address: [address] [place] [address] Performed By: #### 5 7021-8 #### [facility] CLIA [id number] [address] [place] [address] [place] Nucleated RBC/100 WBC (Bld) [Ratio] Normal [facility] Comment on above: Order Comment: Speci men Type: BLOOD SPECIMEN Ordering Facility: Rufus Granados MD Address: [facility] [place] [address] Performed By: #### 5 7021-8 #### [facility] CLIA [id number] [address] [place] [address] [place] Platelet mean volume (Bld) [Entitic vol] 11.5 fL Normal 9.0-12.7 [facility] Comment on above: Order Comment: Speci men Type: BLOOD SPECIMEN Ordering Facility: Rufus Granados MD Address: [address] [place] [address] Performed By: #### 5 7021-8 #### [facility] CLIA [id number] [address] [place] [address] [place] Platelets (Bld) [#/Vol] 128 10*3/uL Low 150-400 [facility] Comment on above: Order Comment: Speci men Type: BLOOD SPECIMEN Ordering Facility: Rufus Granados MD Address: [address] [place] [address] Performed By: #### 5 7021-8 #### [facility] CLIA [id number] [address] [place] [address] [place] RBC (Bld) [#/Vol] 5.02 10*6/uL Normal 4.20-6.00 [facility] Comment on above: Order Comment: Speci men Type: BLOOD SPECIMEN Ordering Facility: Rufus Granados MD Address: [address] [place] [address] Performed By: #### 5 7021-8 #### [facility] CLIA [id number] [address] [place] [address] [place] WBC (Bld) [#/Vol] 11.68 10*3/uL High 3.70-11.00 [facility] Comment on above: Order Comment: Speci men Type: BLOOD SPECIMEN Ordering Facility: Rufus Granados MD Address: [address] [place] [address] Performed By: #### 5 7021-8 #### [facility] CLIA [id number] [address] [place] [address] [facility] Comprehensive metabolic 2000 panelon 01-03-2024 Albumin [Mass/Vol] 4.3 g/dL Normal 3.9-4.9 [facility] Comment on above: Order Comment: Speci men Type: BLOOD SPECIMEN Ordering Facility: Rufus Granados MD Address: [address] [place] [address] Performed By: #### 2 4323-8, 3016-3, 68902-9, 12462-8 #### [facility] CLIA [id number] [address] [place] [address] [place] [facility] ALP [Catalytic activity/Vol] 81 U/L Normal 38-113 [facility] Comment on above: Order Comment: Speci men Type: BLOOD SPECIMEN Ordering Facility: Rufus Granados MD Address: [address] [place] [address] Performed By: #### 2 4323-8, 3016-3, 02118-3, 41261-2 #### [facility] CLIA [id number] [address] [place] [address] [place] ALT With P-5'-P [Catalytic activity/Vol] 35 U/L Normal 10-54 [facility] Comment on above: Order Comment: Speci men Type: BLOOD SPECIMEN Ordering Facility: Rufus Granados MD Address: [address] [place] [address] Performed By: #### 2 4323-8, 3016-3, 47324-9, 16821-1 #### [facility] CLIA [id number] [address] [place] [address] [place] Anion gap [Moles/Vol] 11 mmol/L Normal 9-18 [facility] Comment on above: Order Comment: Speci men Type: BLOOD SPECIMEN Ordering Facility: Rufus Granados MD Address: [address] [place] [address] Performed By: #### 2 4323-8, 6-3, , 00553-7 #### [facility] CLIA [id number] [address] [facility] [place] [address] [place] AST With P-5'-P [Catalytic activity/Vol] 29 U/L Normal 14-40 [facility] Comment on above: Order Comment: Speci men Type: BLOOD SPECIMEN Ordering Facility: Rufus Granados MD Address: [address] [place] [address] Performed By: #### 2 4323-8, 6-3, , 96073-8 #### [facility] CLIA [id number] [address] [place] [address] [place] Bilirubin [Mass/Vol] 1.6 mg/dL High 0.2-1.3 [facility] Comment on above: Order Comment: Speci men Type: BLOOD SPECIMEN Ordering Facility: Rufus Granados MD Address: [address] [place] [address] Performed By: #### 2 4323-8, 6-3, , #### [facility] CLIA [id number] [address] [place] [address] [place] Calcium [Mass/Vol] 10.4 mg/dL High 8.5-10.2 [facility] Comment on above: Order Comment: Speci men Type: BLOOD SPECIMEN Ordering Facility: Rufus Granados MD Address: [address] [place] [address] Performed By: #### 2 4323-8, 3015-3, , 36465-7 #### [facility] CLIA [id number] [address] [place] [address] [place] Chloride [Moles/Vol] 98 mmol/L Normal 97-105 [facility] Comment on above: Order Comment: Speci daisy Type: BLOOD SPECIMEN Ordering Facility: Rufus Granados MD Address: [address] [place] [address] Performed By: #### 2 4323-8, 3016-3, , 03191-6 #### [facility] CLIA [id number] [address] [place] [address] [place] CO2 [Moles/Vol] 26 mmol/L Normal 22-30 [facility] Comment on above: Order Comment: Speci men Type: BLOOD SPECIMEN Ordering Facility: Rufus Granados MD Address: [address] [place] [address] Performed By: #### 2 4323-8, 3016-3, , 51371-5 #### [facility] CLIA [id number] [address] [place] [address] [place] Creatinine [Mass/Vol] 0.60 mg/dL Low 0.73-1.22 [facility] Comment on above: Order Comment: Speci men Type: BLOOD SPECIMEN Ordering Facility: Rufus Granados MD Address: [address] [place] [address] Performed By: #### 2 4323-8, 3016-3, , 88262-1 #### [facility] CLIA [id number] [address] [place] [address] [place] Creatinine and Glomerular filtration rate.predicted panel (S/P/Bld) 102 mL/min/1.73m??? Normal >=60 [facility] Comment on above: Order Comment: [place] Type: BLOOD SPECIMEN Ordering Facility: Rufus Granados MD Address: [address] [place] [address] Result Comment: Cora mated Glomerular Filtration Rate (eGFR) is calculated using the 2020 CKD-EPI creatinine equation. This equation utilizes serum creatinine, sex, and age as parameters. The creatinine assay has traceable calibration to isotope dilution-mass spectrometry. Refer to KDIGO guidelines for clinical interpretation. In patients with unstable renal function, e.g. those with acute kidney injury, the eGFR may not accurately reflect actual GFR. Performed By: #### 2 4323-8, 3016-3, 40969-2, 14673-8 #### [facility] CLIA [id number] [address] [place] [address] [place] Glucose [Mass/Vol] 106 mg/dL High 74-99 [facility] Comment on above: Order Comment: Edson villa Type: BLOOD SPECIMEN Ordering Facility: Rufus Granados MD Address: [address] [place] [address] Result Comment: The [place] Diabetes Association (ADA) provides guidance for cutoff values for fasting glucose and random glucose. The ADA defines fasting as no caloric intake for at least 8 hours. Fasting plasma glucose results between 100 to 125 mg/dL indicate increased risk for diabetes (prediabetes). Fasting plasma glucose results greater than or equal to 126 mg/dL meet the criteria for diagnosis of diabetes. In the absence of unequivocal hyperglycemia, results should be confirmed by repeat testing. In a patient with classic symptoms of hyperglycemia or hyperglycemic crisis, random plasma glucose results greater than or equal to 200 mg/dL meet the criteria for diagnosis of diabetes. Reference: Standards of Medical Care in Diabetes 2016, [place] Diabetes Association. Diabetes Care. 2016.39(Suppl 1). Performed By: #### 2 4323-8, 6-3, , #### [facility] CLIA [id number] [address] [place] [address] [place] Potassium [Moles/Vol] 4.4 mmol/L Normal 3.7-5.1 [facility] Comment on above: Order Comment: Edson villa Type: BLOOD SPECIMEN Ordering Facility: Rufus Granados MD Address: [address] [place] [address] Performed By: #### 2 4323-8, 3016-3, , 52005-6 #### [facility] CLIA [id number] [address] [place] [address] [place] Protein [Mass/Vol] 7.3 g/dL Normal 6.3-8.0 [facility] Comment on above: Order Comment: Edson villa Type: BLOOD SPECIMEN Ordering Facility: Rufus Granados MD Address: [address] [place], [place] [address] Performed By: #### 2 4323-8, 3016-3, 41684-2, 35812-1 #### [facility] CLIA [id number] [address] [place] [address] [place] Sodium [Moles/Vol] 135 mmol/L Low 136-144 [facility] Comment on above: Order Comment: Speci men Type: BLOOD SPECIMEN Ordering Facility: Rufus Granados MD Address: [address] [place] [address] Performed By: #### 2 4323-8, 3016-3, 81906-9, 57109-7 #### [facility] CLIA [id number] [address] [place], [place] [id number] [place] Urea nitrogen [Mass/Vol] 13 mg/dL Normal 9-24 [facility] Comment on above: Order Comment: Speci men Type: BLOOD SPECIMEN Ordering Facility: Rufus Granados MD Address: [address] [place] [address] Performed By: #### 2 4323-8, 3016-3, 05695-5, 86358-4 #### [facility] CLIA [id number] [address] [place] [address] [place] Folate SerPl-mCncon 01-03-20 24 Folate [Mass/Vol] ng/mL Normal >4.7 [facility] Comment on above: Order Comment: Speci men Type: BLOOD SPECIMEN Ordering Facility: Rufus Granados MD Address: [address] [place] [address] Result Comment: A re sult of > 20 ng/mL is not necessarily indicative of a pathologic or treatable condition: it reflects a limitation of the test methodology. Assay reference range: 4.8 to 24.2 ng/mL. Suitable for detection of folate deficiency. Reference: Folate III (Folate III) [package insert V 1.0 Irish]. [facility], [place], [place]: June 2015. Performed By: #### 2 132-9, 2284-8 #### [facility] CLIA [id number] [address] STATES OF [facility] HbA1c (Bld)on 01-03-2024 Average glucose Estimated from glycated hemoglobin (Bld) [Mass/Vol] 100 mg/dL Normal [facility] Comment on above: Order Comment: Edson villa Type: BLOOD SPECIMENOrdering Facility: Rufus Granados MD Address: [address] [place] [address] Result Comment: eAG: (Estimated average glucose) is a calculated value from HgbA1c and is self pay representative of the average blood glucose level in the last 2-3 month period. Performed By: #### 5 5454-3 ####[facility] [id number] [address] [place] HbA1c (Bld) [Mass fraction] 5.1 % Normal 4.3-5.6 [facility] Comment on above: Order Comment: Edson villa Type: BLOOD SPECIMENOrdering Facility: Rufus Granados MD Address: [address] [place] [address] Result Comment: [place] Diabetes Association guidelines indicate that patients with HgbA1c in the range 5.7-6.4% are at increased risk for development of diabetes, and intervention by lifestyle modification may be beneficial. HgbA1c greater or equal to 6.5% is considered diagnostic of diabetes. Performed By: #### 5 5454-3 ####[facility] LABCLIA [id number] [place] [id number] [place] Lipid 1996 panelon 4 Cholesterol [Mass/Vol] 146 mg/dL Normal <200 [facility] Comment on above: Order Comment: Edson daisy Type: BLOOD SPECIMEN Ordering Facility: Rufus Granados MD Address: [address] [place] [address] Result Comment: <200 mg/dL, Desirable 200-239 mg/dL, Borderline high >239 mg/dL, High Performed By: #### 2 4323-8, 3016-3, 95575-4, 54444-7 #### [facility] CLIA [id number] [address] [place] [address] [place] Cholesterol in HDL [Mass/Vol] 65 mg/dL Normal >39 [facility] Comment on above: Order Comment: Edson villa Type: BLOOD SPECIMEN Ordering Facility: Rufus Granados MD Address: [address] [place] [address] Result Comment: 40-5 9 mg/dL, Acceptable >59 mg/dL, High: Negative risk factor for coronary heart disease <40 mg/dL, Low: Positive risk factor for coronary heart disease Performed By: #### 2 4323-8, 6-3, 47818-1, 75284-7 #### [facility] CLIA [id number] [address] [place] [address] [facility] Cholesterol in LDL [Mass/Vol] 64 mg/dL Normal <100 [facility] Comment on above: Order Comment: Edson daisy Type: BLOOD SPECIMEN Ordering Facility: Rufus Granados MD Address: [address] [place] [address] Result Comment: <100 mg/dL, Optimal 100-129 mg/dL, Near optimal/above optimal 130-159 mg/dL, Borderline high 160-189 mg/dL, High >189 mg/dL, Very high Secondary prevention optimal LDL Cholesterol levels are recommended to be < 70 mg/dL Performed By: #### 2 4323-8, 6-3, 56126-6, 28262-6 #### [facility] CLIA [id number] [address] [place] [address] [facility] Cholesterol in LDL/Cholesterol in HDL [Mass ratio] 0.98 {ratio} Normal <2.54 [facility] Comment on above: Order Comment: Edson villa Type: BLOOD SPECIMEN Ordering Facility: Rufus Granados MD Address: [address] [place] [address] Result Comment: Refe rence: 1. National Cholesterol Education Program ATP III Guideline At-A-Glance Quick Desk Reference: National Heart, Lung, and Blood [place]. National Institutes of Health. 2001: NIH Publication No. 01-3305. 2. An International Atherosclerosis Society position paper: global recommendations for the management of dyslipidemia: executive summary, Atherosclerosis. 2014: 232(2):410-413. Performed By: #### 2 4323-8, 3016-3, 28935-3, 33772-3 #### [facility] CLIA [id number] [address] [place] [address] [place] Cholesterol in VLDL [Mass/Vol] 17 mg/dL Normal <30 [facility] Comment on above: Order Comment: Speci men Type: BLOOD SPECIMEN Ordering Facility: Rufus Granados MD Address: [address] [place] [address] Performed By: #### 2 4323-8, 6-3, , 38277-4 #### [facility] CLIA [id number] [address] [place] [address] [place] Cholesterol non HDL [Mass/Vol] 81 mg/dL Normal <130 [facility] Comment on above: Order Comment: Speci men Type: BLOOD SPECIMEN Ordering Facility: Rufus Granados MD Address: [address] [place] [address] Result Comment: <130 mg/dL, Optimal 130-159 mg/dL, Near optimal/above optimal 160-189 mg/dL, Borderline high 190-219 mg/dL, High >219 mg/dL, Very high Secondary prevention optimal non HDL Cholesterol levels are recommended to be <100 mg/dL Performed By: #### 2 4323-8, 6-3, , 07828-0 #### [facility] CLIA [id number] [address] [place] [address] [facility] [place] Cholesterol.total/Chol esterol in HDL [Mass ratio] 2.25 {ratio} Normal <5.10 [facility] Comment on above: Order Comment: Speci men Type: BLOOD SPECIMEN Ordering Facility: Rufus Granados MD Address: [address] [place] [address] Performed By: #### 2 4323-8, 6-3, , #### [facility] CLIA [id number] [address] [place] [address] [facility] [place] FASTING TIME 12 hrs Normal [facility] Comment on above: Order Comment: Speci men Type: BLOOD SPECIMEN Ordering Facility: Rufus Granados MD Address: [address] [place] [address] Performed By: #### 2 4323-8, 6-3, , 55657-3 #### [facility] CLIA [id number] [address] [place] [address] [facility] Triglyceride [Mass/Vol] 86 mg/dL Normal <150 [facility] Comment on above: Order Comment: Speci men Type: BLOOD SPECIMEN Ordering Facility: Rufus Granados MD Address: [address] [place] [address] Result Comment: <150 mg/dL, Normal 150-199 mg/dL, Borderline high 200-499 mg/dL, High >499 mg/dL, Very high Performed By: #### 2 4323-8, 3015-3, , 21972-6 #### [facility] CLIA [id number] [address] OF [facility] Magnesium SerPl-mCncon 01-02 Magnesium [Mass/Vol] 1.9 mg/dL Normal 1.7-2.3 [facility] Comment on above: Order Comment: Speci men Type: BLOOD SPECIMEN Ordering Facility: Rufus Granados MD Address: [address] [place] [address] Performed By: #### 2 4323-8, 3015-3, , 59920-7 #### [facility] CLIA [id number] [address] [place] Retics #on 01-03-2024 Reticulocytes (Bld) [#/Vol] 0.31039 10*3/uL High 0.018-0.100 [facility] Comment on above: Order Comment: Speci men Type: BLOOD SPECIMENOrdering Facility: Rufus Granados MD Address: [address] [place] [address] Performed By: #### 1 4196-0 ####[facility] [id number] [address] [place] Reticulocytes (Bld) [#/Vol]o n 01-03-2024 Reticulocytes/100 RBC (Bld) 2.1 % High 0.4-2.0 [facility] Comment on above: Order Comment: Speci men Type: BLOOD SPECIMENOrdering Facility: Rufus Granados MD Address: [address] [place] [address] Performed By: #### 1 4196-0 ####[facility] [id number] [address] TSH SerPl-aCncon 01-03-2024 TSH Qn 1.290 m[IU]/L Normal 0.270-4.200 [facility] Comment on above: Order Comment: Speci men Type: BLOOD SPECIMEN Ordering Facility: Rufus Granados MD Address: [address] [place] [address] Performed By: #### 2 4323-8, 3016-3, 51721-3, 33236-2 #### [facility] CLIA [id number] [address] [place] [address] Vit B12 SerPl-mCncon 024 Cobalamin (Vitamin B12) [Mass/Vol] 431 pg/mL Normal 232-1245 [facility] Comment on above: Order Comment: Speci men Type: BLOOD SPECIMEN Ordering Facility: Rufus Granados MD Address: [address] [place] [address] Performed By: #### 2 132-9, 2284-8 #### [facility] CLIA [id number] [address] XR Shoulder - left 3 Viewson 08-13-2023 IMPRESSION: Intact left reverse shoulder arthroplasty. [employer] Set Up Operator: PSCB Transcribe Date/Time: Aug 13 2023 9:21A Dictated by : MONICA FORDE MD This examination was interpreted and the report reviewed and electronically signed by: MONICA FORDE MD on Aug 13 2023 9:23AM [facility] * * *Final Report* * * DATE OF EXAM: Aug 10 2023 2:03PM O 5252 - XR SHLDR >/=3V AP/JESSICA AP/OTHR LT / PROCEDURE REASON: multiple diagnoses * * * * Physician Interpretation * * * * EXAMINATION / TECHNIQUE: XR SHLDR >/=3V AP/JESSICA AP/OTHR LT PATIENT/TECHNOLOGIST PROVIDED HISTORY: CHRONIC LEFT SHOULDER PAIN CLINICAL INFORMATION ( PROVIDED BY ORDERING CLINICIAN) : Chronic left shoulder pain COMPARISON: 07/09/2023 RESULT: Left reverse shoulder arthroplasty with satisfactory alignment. No evidence of loosening or periprostatic fracture. Mild degenerative changes of the AC joint. [facility] Provider, [facility] - 08/13/2023 * * *Final Report* * * DATE OF EXAM: Aug 10 2023 2:03PM LAURA 5252 - XR SHLDR >/=3V AP/JESSICA AP/OTHR LT / PROCEDURE REASON: multiple diagnoses * * * * Physician Interpretation * * * * EXAMINATION / TECHNIQUE: XR SHLDR >/=3V AP/JESSICA AP/OTHR LT PATIENT/TECHNOLOGIST PROVIDED HISTORY: CHRONIC LEFT SHOULDER PAIN CLINICAL INFORMATION ( PROVIDED BY ORDERING CLINICIAN) : Chronic left shoulder pain COMPARISON: 07/09/2023 RESULT: Left reverse shoulder arthroplasty with satisfactory alignment. No evidence of loosening or periprostatic fracture. Mild degenerative changes of the AC joint. IMPRESSION IMPRESSION: Intact left reverse shoulder arthroplasty. [employer] Set Up Operator: FREDY Transcribe Date/Time: Aug 13 2023 9:21A Dictated by : MONICA FORDE MD This examination was interpreted and the report reviewed and electronically signed by: MONICA FORDE MD on Aug 13 2023 9:23AM EST [facility] XR Shoulder - left 3 ViewsOr dered By: [facility] Provider on 08-13-2023 [facility] CNOVon 08-10-2023 CNOV Office Visit (ORMDRG ) MATTEO THOMPSON ([id number]) 1950 M [facility] Date Time Provider Department 08/10/23 2:15 PM SHAUN DELACRUZ ORMDRG During your visit today, we recorded the following information about you: Shaun Delacruz MD 08/10/2023 2:42 PM Signed PAIN EVALUATION 08/10/2023 1422 Pain Level: 3 Pain Location: Shoulder-Left Description: Stiffness Intervention/Comfort measure: Exercise Comments: PT currently Matteo Thompson returns to follow-up 6 weeks following reverse arthroplasty. Pain has been improving steadily and range of motion also improving with light use at home and with physical therapy. On exam there is improvement in overhead and rotational range of motion. Pain is minimal throughout the exam today. There is no catching or grinding of the shoulder. There is no tenderness to palpation over the scapular spine or acromion. Active forward elevation is 140 and external rotation is 30. There is some difficulty with rotation behind the back. AP, outlet, axillary views of the shoulder reviewed in the office today demonstrate unchanged alignment of reverse arthroplasty components without evidence of fracture or any loosening of the implants. Today we discussed progress 6 weeks following surgery. Progress has been good in the shoulder may be used for all activities as tolerated within limits of pain. Recommended continuing physical therapy and return to see me again in 6 weeks with repeat x-rays and clinical exam. 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 - docusate sodium (COLACE) 100 mg capsule Take 1 capsule by mouth two times a day. - ondansetron (ZOFRAN) 4 mg tablet Take 1 tablet by mouth every 8 hours as needed. - atorvastatin (LIPITOR) 40 mg tablet - buPROPion SR (ZYBAN SR; WELLBUTRIN SR) 150 mg 12 hr tablet - losartan (COZAAR) 50 mg tablet Take by mouth. - cholecalciferol (VITAMIN D) 1,000 unit tab tablet Take 1,000 Units by mouth once daily. - Ascorbic Acid (VITAMIN C) 500 mg chew Take 500 mg by mouth once daily. - vit C/E/Zn/coppr/lutein/ze axan (PRESERVISION AREDS-2 ORAL) Take by mouth. - aspirin 81 mg chewable tablet Take 81 mg by mouth once daily. - carvedilol (COREG) 6.25 mg tablet Take 3.125 mg by mouth twice daily with meals. - multivitamin tablet Take 1 tablet by mouth once daily. - rosuvastatin (CRESTOR) 20 mg ORAL Tab Take by mouth. - enalapril (VASOTEC) 5 mg ORAL Tab Take by mouth. - clopidogrel (PLAVIX) 75 mg ORAL Tab Take 75 mg by mouth two times a week. Mon and Th - nitroglycerin sublingual 0.4 mg SUBLINGUAL Subl Dissolve under the tongue. Usual dose for angina is 1 tablet every 5 minutes for maximum of 3 doses in 15 minutes. 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] 12/27/2022 Chronic obstructive lung disease (HCC) [J44.9] 05/18/2016 Coronary arteriosclerosis [I25.10] 01/14/2015 Essential hypertension [I10] 01/14/2015 Hyperlipidemia [E78.5] 01/14/2015 Nicotine dependence, cigarettes, with other no*07/14/2015 Factor V Leiden (HCC) [D68.51] 06/13/2023 Heterozygous alpha 1-antitrypsin deficiency (HC*06/13/2023 Acute pain of left shoulder [M25.512] 07/06/2023 Status post reverse total replacement of left s*07/09/2023 Encounter Status:Closed by SHAUN DELACRUZ on 08/10/23 Normal [facility] Rodriguez XR SHLDR >/=3V AP/JESSICA AP/OTH R LTon 08-10-2023 XR SHLDR >/=3V AP/JESSICA AP/OTHR LT * * *Final Report* * * DATE OF EXAM: Aug 10 2023 2:03PM LAURA 5252 - XR SHLDR >/=3V AP/JESSICA AP/OTHR LT / PROCEDURE REASON: multiple diagnoses * * * * Physician Interpretation * * * * EXAMINATION / TECHNIQUE: XR SHLDR >/=3V AP/JESSICA AP/OTHR LT PATIENT/TECHNOLOGIST PROVIDED HISTORY: CHRONIC LEFT SHOULDER PAIN CLINICAL INFORMATION ( PROVIDED BY ORDERING CLINICIAN) : Chronic left shoulder pain COMPARISON: 07/09/2023 RESULT: Left reverse shoulder arthroplasty with satisfactory alignment. No evidence of loosening or periprostatic fracture. Mild degenerative changes of the AC joint. IMPRESSION: Intact left reverse shoulder arthroplasty. [employer] Set Up Operator: FREDY Transcribe Date/Time: Aug 13 2023 9:21A Dictated by : MONICA FORDE MD This examination was interpreted and the report reviewed and electronically signed by: MONICA FORDE MD on Aug 13 2023 9:23AM EST [id number] [facility] XR Shoulder - left 3 Viewson 08-10-2023 Radiology Study observation (narrative) [facility] CNTHERAPYon 08-06-2023 CNTHERAPY OT/PT/Speech Visit (LDPT) MATTEO THOMPSON ([id number]) 1950 M [place] Date Time Provider Department 08/06/23 12:45 PM DAVID ALEXANDER LDPT Date Time Provider Department Center 08/06/2023 12:45 PM [id number], CARLA LDPT [facility] Reason for Visit: PT Progress Note [1596] PT Discharge [752] Primary Visit Diagnosis: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 - docusate sodium (COLACE) 100 mg capsule Take 1 capsule by mouth two times a day. - ondansetron (ZOFRAN) 4 mg tablet Take 1 tablet by mouth every 8 hours as needed. - atorvastatin (LIPITOR) 40 mg tablet - buPROPion SR (ZYBAN SR; WELLBUTRIN SR) 150 mg 12 hr tablet - losartan (COZAAR) 50 mg tablet Take by mouth. - cholecalciferol (VITAMIN D) 1,000 unit tab tablet Take 1,000 Units by mouth once daily. - Ascorbic Acid (VITAMIN C) 500 mg chew Take 500 mg by mouth once daily. - vit C/E/Zn/coppr/lutein/ze axan (PRESERVISION AREDS-2 ORAL) Take by mouth. - aspirin 81 mg chewable tablet Take 81 mg by mouth once daily. - carvedilol (COREG) 6.25 mg tablet Take 3.125 mg by mouth twice daily with meals. - multivitamin tablet Take 1 tablet by mouth once daily. - rosuvastatin (CRESTOR) 20 mg ORAL Tab Take by mouth. - enalapril (VASOTEC) 5 mg ORAL Tab Take by mouth. - clopidogrel (PLAVIX) 75 mg ORAL Tab Take 75 mg by mouth two times a week. Mon and - nitroglycerin sublingual 0.4 mg SUBLINGUAL Subl Dissolve under the tongue. Usual dose for angina is 1 tablet every 5 minutes for maximum of 3 doses in 15 minutes. 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 - docusate sodium (COLACE) 100 mg capsule Take 1 capsule by mouth two times a day. - ondansetron (ZOFRAN) 4 mg tablet Take 1 tablet by mouth every 8 hours as needed. - atorvastatin (LIPITOR) 40 mg tablet - buPROPion SR (ZYBAN SR; WELLBUTRIN SR) 150 mg 12 hr tablet - losartan (COZAAR) 50 mg tablet Take by mouth. - cholecalciferol (VITAMIN D) 1,000 unit tab tablet Take 1,000 Units by mouth once daily. - Ascorbic Acid (VITAMIN C) 500 mg chew Take 500 mg by mouth once daily. - vit C/E/Zn/coppr/lutein/ze axan (PRESERVISION AREDS-2 ORAL) Take by mouth. - aspirin 81 mg chewable tablet Take 81 mg by mouth once daily. - carvedilol (COREG) 6.25 mg tablet Take 3.125 mg by mouth twice daily with meals. - multivitamin tablet Take 1 tablet by mouth once daily. - rosuvastatin (CRESTOR) 20 mg ORAL Tab Take by mouth. - enalapril (VASOTEC) 5 mg ORAL Tab Take by mouth. - clopidogrel (PLAVIX) 75 mg ORAL Tab Take 75 mg by mouth two times a week. Mon and Thurs - nitroglycerin sublingual 0.4 mg SUBLINGUAL Subl Dissolve under the tongue. Usual dose for angina is 1 tablet every 5 minutes for maximum of 3 doses in 15 minutes. 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 - docusate sodium (COLACE) 100 mg capsule Take 1 capsule by mouth two times a day. - ondansetron (ZOFRAN) 4 mg tablet Take 1 tablet by mouth every 8 hours as needed. - atorvastatin (LIPITOR) 40 mg tablet - buPROPion SR (ZYBAN SR; WELLBUTRIN SR) 150 mg 12 hr tablet - losartan (COZAAR) 50 mg tablet Take by mouth. - cholecalciferol (VITAMIN D) 1,000 unit tab tablet Take 1,000 Units by mouth once daily. - Ascorbic Acid (VITAMIN C) 500 mg chew Take 500 mg by mouth once daily. - vit C/E/Zn/coppr/lutein/ze axan (PRESERVISION AREDS-2 ORAL) Take by mouth. - aspirin 81 mg chewable tablet Take 81 mg by mouth once daily. - carvedilol (COREG) 6.25 mg tablet Take 3.125 mg by mouth twice daily with meals. - multivitamin tablet Take 1 tablet by mouth once daily. - rosuvastatin (CRESTOR) 20 mg ORAL Tab Take by mouth. - enalapril (VASOTEC) 5 mg ORAL Tab Take by mouth. - clopidogrel (PLAVIX) 75 mg ORAL Tab Take 75 mg by mouth two times a week. Mon and - nitroglycerin sublingual 0.4 mg SUBLINGUAL Subl Dissolve under the tongue. Usual dose for angina is 1 tablet every 5 minutes for maximum of 3 doses in 15 minutes. 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 - docusate sodium (COLACE) 100 mg capsule Take 1 capsule by mouth two times a day. - ondansetron (ZOFRAN) 4 mg tablet Take 1 tablet by mouth every 8 hours as needed. - atorvastatin (LIPITOR) 40 mg tablet - buPROPion SR (ZYBAN SR; WELLBUTRIN SR) 150 mg 12 hr tablet - losartan (COZAAR) 50 mg tablet Take by mouth. - cholecalciferol (VITAMIN D) 1,000 unit tab tablet Take 1,000 Units by mouth once daily. - Ascorbic Acid (VITAMIN C) 500 mg chew Take 500 mg by mouth once daily. - vit C/E/Zn/coppr/lutein/ze axan (PRESERVISION AREDS-2 ORAL) Take by mouth. - aspirin 81 mg chewable tablet Take 81 mg by mouth once daily. - carvedilol (COREG) 6.25 mg tablet Take 3.125 mg by mouth twice daily with meals. - multivitamin tablet Take 1 tablet by mouth once daily. - rosuvastatin (CRESTOR) 20 mg ORAL Tab Take by mouth. - enalapril (VASOTEC) 5 mg ORAL Tab Take by mouth. - clopidogrel (PLAVIX) 75 mg ORAL Tab Take 75 mg by mouth two times a week. Mon and Thurs - nitroglycerin sublingual 0.4 mg SUBLINGUAL Subl Dissolve under the tongue. Usual dose for angina is 1 tablet every 5 minutes for maximum of 3 doses in 15 minutes. Normal [facility] CNOVon 07-13-2023 CN Office Visit (ORMDRG ) MATTEO THOMPSON ([id number]) 1950 M AYE Date Time Provider Department 07/13/23 10:15 AM IDA BOLTON During your visit today, we recorded the following information about you: Ida Bolton PA-C 07/13/2023 11:09 AM Signed Ida Bolton PA-C Department of Orthopaedics July 13, 2023 SURGERY: Reverse total shoulder arthroplasty - left SUBJECTIVE: Patient returns to clinic now 2 weeks status post the above procedure. Pain has been controlled on pain medication. Patient has been out of the sling and using the arm for light activity as tolerates. Has been to PT. Exam: Well healed anterior incision. Active forward elevation to 100. Sensation intact to lateral deltoid. Strong deltoid contraction against resistance. Nontender along scapular spine or acromion. Imaging: I did order and interpret radiographs today, 3 views left shoulder. Reverse total shoulder arthroplasty intact without evidence of mechanical loosening or periprosthetic fracture. ASSESSMENT: S/p reverse total shoulder replacement, left SUMMARY/PLAN: Discussed progress now 2 weeks out from the above procedure. Continue with PT. Continue to use arm for activity as tolerates. No refills needed. Return to clinic in 4 weeks with repeat xrays of shoulder at that time. 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 - docusate sodium (COLACE) 100 mg capsule Take 1 capsule by mouth two times a day. - ondansetron (ZOFRAN) 4 mg tablet Take 1 tablet by mouth every 8 hours as needed. - oxyCODONE-acetaminophe n (PERCOCET) 5-325 mg tablet Take 1-2 tablets by mouth every 4 hours as needed for up to 7 days. - atorvastatin (LIPITOR) 40 mg tablet - buPROPion SR (ZYBAN SR; WELLBUTRIN SR) 150 mg 12 hr tablet - losartan (COZAAR) 50 mg tablet Take by mouth. - cholecalciferol (VITAMIN D) 1,000 unit tab tablet Take 1,000 Units by mouth once daily. - Ascorbic Acid (VITAMIN C) 500 mg chew Take 500 mg by mouth once daily. - vit C/E/Zn/coppr/lutein/ze axan (PRESERVISION AREDS-2 ORAL) Take by mouth. - aspirin 81 mg chewable tablet Take 81 mg by mouth once daily. - carvedilol (COREG) 6.25 mg tablet Take 3.125 mg by mouth twice daily with meals. - multivitamin tablet Take 1 tablet by mouth once daily. - rosuvastatin (CRESTOR) 20 mg ORAL Tab Take by mouth. - enalapril (VASOTEC) 5 mg ORAL Tab Take by mouth. - clopidogrel (PLAVIX) 75 mg ORAL Tab Take 75 mg by mouth two times a week. Mon and - nitroglycerin sublingual 0.4 mg SUBLINGUAL Subl Dissolve under the tongue. Usual dose for angina is 1 tablet every 5 minutes for maximum of 3 doses in 15 minutes. Problem List As Of Date 07/13/2023 Noted Resolved Appendicitis, acute [K35.80] 02/11/2016 03/15/2016 Allergic to bees [Z91.030] 12/27/2022 Chronic obstructive lung disease (HCC) [J44.9] 05/18/2016 Coronary arteriosclerosis [I25.10] 01/14/2015 Essential hypertension [I10] 01/14/2015 Hyperlipidemia [E78.5] 01/14/2015 Nicotine dependence, cigarettes, with other no*07/14/2015 Factor V Leiden ([facility]) [D68.51] 06/13/2023 Heterozygous alpha 1-antitrypsin deficiency (HC*06/13/2023 Acute pain of left shoulder [M25.512] 07/06/2023 Status post reverse total replacement of left s*07/09/2023 Encounter Status:Closed by IDA BOLTON on 07/13/23 [facility] CNTHERAPYon 07-09-2023 CNTHERAPY OT/PT/Speech Visit (LDPT) MATTEO THOMPSON ([id number]) 1950 [facility] Date Time Provider Department 07/09/23 2:15 PM DAVID ALEXANDER LDPT Date Time Provider Department Center 07/09/2023 2:15 PM [id number], CARLA LDPT [facility] Reason for Visit: Physical Therapy [503] Primary Visit Diagnosis:Status post reverse total replacement of left shoulder [Z96.612] Other Visit Diagnosis:Acute pain of left shoulder [M25.512] Allergies As of Date: 07/09/2023 Noted Allergy Reaction AMOXICILLIN 01/23/2007 2 - Rash CONTRAST DYE 01/23/2007 7 - Swelling KETEK (TELITHROMYCIN) 01/23/2007 2 - Rash Date Reviewed: 06/29/2023 Reviewed by: Sofia Martinez (Rn), RN - Fully Assessed Prescriptions as of 07/09/2023 - docusate sodium (COLACE) 100 mg capsule Take 1 capsule by mouth two times a day. - ondansetron (ZOFRAN) 4 mg tablet Take 1 tablet by mouth every 8 hours as needed. - atorvastatin (LIPITOR) 40 mg tablet - buPROPion SR (ZYBAN SR; WELLBUTRIN SR) 150 mg 12 hr tablet - losartan (COZAAR) 50 mg tablet Take by mouth. - cholecalciferol (VITAMIN D) 1,000 unit tab tablet Take 1,000 Units by mouth once daily. - Ascorbic Acid (VITAMIN C) 500 mg chew Take 500 mg by mouth once daily. - vit C/E/Zn/coppr/lutein/ze axan (PRESERVISION AREDS-2 ORAL) Take by mouth. - aspirin 81 mg chewable tablet Take 81 mg by mouth once daily. - carvedilol (COREG) 6.25 mg tablet Take 3.125 mg by mouth twice daily with meals. - multivitamin tablet Take 1 tablet by mouth once daily. - rosuvastatin (CRESTOR) 20 mg ORAL Tab Take one(1) tablet daily. - enalapril (VASOTEC) 5 mg ORAL Tab Take one(1) tablet twice daily. - clopidogrel (PLAVIX) 75 mg ORAL Tab Take 75 mg by mouth two times a week. Mon and Thurs - nitroglycerin sublingual 0.4 mg SUBLINGUAL Subl Dissolve one(1) tablet under the toungue as needed for chest pain,every 5 min x3 Normal [facility] XR SHLDR >/=3V AP/JESSICA AP/OTH R LTon 07-09-2023 XR SHLDR >/=3V AP/JESSICA AP/OTHR LT * * *Final Report* * * DATE OF EXAM: Jul 09 2023 1:46PM LDX 5252 - XR SHLDR >/=3V AP/JESSICA AP/OTHR LT / PROCEDURE REASON: multiple diagnoses * * * * Physician Interpretation * * * * LEFT SHOULDER CLINICAL INDICATION: Left shoulder pain COMPARISON: 04/27/2023 FINDINGS: AP, Grashey and scapular Y axillary views of the left shoulder. There has been reversed total shoulder arthroplasty. Glenosphere and humeral components are well-positioned. No periprosthetic lucency or fracture. Acromioclavicular joint is maintained. Soft tissues are grossly unremarkable. IMPRESSION: Intact reversed total shoulder arthroplasty. No acute findings. 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[employer] Press Set Up Operator: FREDY Transcribe Date/Time: Jul 10 2023 8:37A Dictated by : TOMÁS QUINTERO MD This examination was interpreted and the report reviewed and electronically signed by: TOMÁS QUINTERO MD on Jul 10 2023 8:38AM EST [id number] Normal [facility] CNTHERAPYon 07-06-2023 CNTHERAPY OT/PT/Speech Visit (PTMDRG) MATTEO THOMPSON ([id number]) 1950 [facility] Date Time Provider Department 07/06/23 10:15 AM ZULMA HOLBROOK PTMDRG Date Time Provider Department Center 07/06/2023 10:15 AM [id number] HOLBROOK PTMDRG [facility] Reason for Visit: PT Eval [747] Patient Education [91] Visit Diagnoses:Status post reverse total shoulder replacement, unspecified laterality [Z96.619] Acute pain of left shoulder [M25.512] Allergies As of Date: 07/06/2023 Noted Allergy Reaction AMOXICILLIN 01/23/2007 2 - Rash CONTRAST DYE 01/23/2007 7 - Swelling KETEK (TELITHROMYCIN) 01/23/2007 2 - Rash Date Reviewed: 06/29/2023 Reviewed by: Sofia Martinez (Rn), RN - Fully Assessed Prescriptions as of 07/06/2023 - docusate sodium (COLACE) 100 mg capsule Take 1 capsule by mouth two times a day. - ondansetron (ZOFRAN) 4 mg tablet Take 1 tablet by mouth every 8 hours as needed. - oxyCODONE-acetaminophe n (PERCOCET) 5-325 mg tablet Take 1-2 tablets by mouth every 4 hours as needed for up to 7 days. - atorvastatin (LIPITOR) 40 mg tablet - buPROPion SR (ZYBAN SR; WELLBUTRIN SR) 150 mg 12 hr tablet - losartan (COZAAR) 50 mg tablet Take by mouth. - cholecalciferol (VITAMIN D) 1,000 unit tab tablet Take 1,000 Units by mouth once daily. - Ascorbic Acid (VITAMIN C) 500 mg chew Take 500 mg by mouth once daily. - vit C/E/Zn/coppr/lutein/ze axan (PRESERVISION AREDS-2 ORAL) Take by mouth. - aspirin 81 mg chewable tablet Take 81 mg by mouth once daily. - carvedilol (COREG) 6.25 mg tablet Take 3.125 mg by mouth twice daily with meals. - multivitamin tablet Take 1 tablet by mouth once daily. - rosuvastatin (CRESTOR) 20 mg ORAL Tab Take one(1) tablet daily. - enalapril (VASOTEC) 5 mg ORAL Tab Take one(1) tablet twice daily. - clopidogrel (PLAVIX) 75 mg ORAL Tab Take 75 mg by mouth two times a week. Mon and Thurs - nitroglycerin sublingual 0.4 mg SUBLINGUAL Subl Dissolve one(1) tablet under the toungue as needed for chest pain,every 5 min x3 [facility] POSTPROC EVALon 023 ANES POSTPROC EVAL HNO ID: [id number] Author: Demario Underwood MD Service: ? Author Type: Anesthesiologist Type: Anesthesia Postprocedure Evaluation Filed: 06/29/2023 1:41 PM Note Text: POST ANESTHESIA EVALUATION NOTE : 1950 Procedure Summary Date: 06/29/23 Room / Location: [place] [address] / [place] Anesthesia Start: 738 Anesthesia Stop: 925 Procedure: REVERSE TOTAL SHOULDER ARTHROPLASTY (Left: Shoulder) Diagnosis: Rotator cuff tear arthropathy of left shoulder (Rotator cuff tear arthropathy of left shoulder [M75.102, M12.812]) Surgeons: Shaun Delacruz MD Responsible Provider: Demario Underwood MD Anesthesia Type: general ASA Status: 3 Anesthesia Type: general Airway Type: ETT Last Vitals Vitals Value Taken Time BP 140/66 06/29/23 1000 Temp 36.2 ?C (97.2 ?F) 06/29/23 0923 Pulse 54 06/29/23 1005 Resp 19 06/29/23 1005 SpO2 94 % 06/29/23 1005 Vitals shown include unvalidated device data. Post Anesthesia Patient Status Patient Evaluation: bedside. Anticipated Disposition: phase 2 then home. Neurological Status: aware and responsive. Pulmonary Status: breathing comfortably on room air Airway Control: returned to baseline unsupported. Cardiovascular Status: stable. Pain Management: clinically adequate Postoperative Hydration: acceptable. Intraoperative Events: no significant anesthesia events Post Operative Nausea/Vomiting Status: no significant post operative nausea or vomiting Recommendation: continue current plan of care. Anesthesia Observations No Documentation SIGNATURE: Demario Underwood MD PATIENT NAME: Matteo Thomspon DATE: June 29, 2023 TIME: 1:41 PM CSN: [id number] [facility] ANES PRE-OPon 06-29-2023 ANES PRE-OP HNO ID: [id number] Author: Demario Underwood MD Service: ? Author Type: Anesthesiologist Type: Anesthesia Preprocedure Evaluation Filed: 06/29/2023 7:35 AM Note Text: ANESTHESIOLOGY DAY OF SURGERY NOTE : 1950 Procedure Information Date/Time: 06/29/23 0730 Procedure: REVERSE TOTAL SHOULDER ARTHROPLASTY (Left: Shoulder) Location: [address] [place] Surgeons: Shaun Delacruz MD Estimated body mass index is 27.26 kg/m? as calculated from the following: Height as of 06/13/23: 182.9 cm (6'). Weight as of 06/13/23: 91.2 kg (201 lb). Most recent hematocrit and potassium results: Hematocrit 52.1 05/25/2023 Potassium 5.3 05/25/2023 Relevant Problems ANESTHESIA (-) Sleep apnea CARDIO (+) Coronary arteriosclerosis (+) Essential hypertension (-) Angina at rest (-) Angina of effort -RENAL (+) Heterozygous alpha 1-antitrypsin deficiency (HCC) PULMONARY (+) Chronic obstructive lung disease (HCC) (-) Asthma (-) Sleep apnea I - PHYSICAL EVALUATION AIRWAY Patient intubated: No. Tracheostomy tube not present Mallampati: II. TM distance: >3 FB. Neck ROM: full ROM without neurological symptoms. Mouth opening: adequate. Thick neck: no Mcdonough present: no DENTAL Dental findings: teeth intact. II - ANESTHESIA PLAN ASA Score: 3 Anesthetic Plan: general Airway type: ETT The patient is not a current smoker. NPO Status: adequate Beta Giovanna Monitoring Plan Monitoring plan: standard ASA. Post Procedure Analgesic Plan Postoperative analgesic plan: multimodal analgesia and peripheral nerve block. Informed Consent Anesthetic risks, benefits, alternatives, personnel and consent discussed: yes. Patient / Responsible Constitution Party agrees to proceed: yes Patient / Surrogate agrees to blood products: Yes DNR status not reviewed with patient and/or family prior to surgery. Significant changes in the patient condition since the History and Physical, not otherwise documented in primary service progress note: no. Potential Anesthesia issues that may suggest increased risk of complications or contraindication to planned procedure: none. Vitals Value Taken Time BP 174/77 06/29/23 0632 Pulse Resp 18 06/29/23 0632 Temp 36.2 ?C (97.2 ?F) 06/29/23 0632 SpO2 99 % 06/29/23 0632 Facility-Administered Medications as of 06/29/2023 Medication Dose Route Frequency - lidocaine (PF) 10 mg/mL (1 %) 1-2 mg injection (XYLOCAINE) 0.1-0.2 mL INTRADERMAL PRN - lactated ringers iv infusion 5-30 mL/hr INTRAVENOUS CONTINUOUS - NaCl 0.9% iv flush bag 20 mL INTRAVENOUS PRN - ceFAZolin iv piggyback 2 g in D5W (iso-osmotic) 100 mL (ANCEF) 2 g INTRAVENOUS Pre-Op Once - [COMPLETED] acetaminophen 1,000 mg tab(s) (TYLENOL) 1,000 mg ORAL Pre-Op Once - midazolam (PF) 2 mg injection (VERSED) 2 mg INTRAVENOUS Pre-Op Once - lactated ringers iv infusion 30 mL/hr INTRAVENOUS CONTINUOUS Outpatient Medications as of 06/29/2023 Medication Sig - atorvastatin (LIPITOR) 40 mg tablet - buPROPion SR (ZYBAN SR; WELLBUTRIN SR) 150 mg 12 hr tablet - carvedilol (COREG) 6.25 mg tablet Take 3.125 mg by mouth twice daily with meals. - aspirin 81 mg chewable tablet Take 81 mg by mouth once daily. - multivitamin tablet Take 1 tablet by mouth once daily. - rosuvastatin (CRESTOR) 20 mg ORAL Tab Take one(1) tablet daily. (Patient not taking: Reported on 06/13/2023) - enalapril (VASOTEC) 5 mg ORAL Tab Take one(1) tablet twice daily. (Patient not taking: Reported on 06/13/2023) - clopidogrel (PLAVIX) 75 mg ORAL Tab Take 75 mg by mouth two times a week. Mon and urs - nitroglycerin sublingual 0.4 mg SUBLINGUAL Subl Dissolve one(1) tablet under the toungue as needed for chest pain,every 5 min x3 (Patient not taking: Reported on 06/13/2023) I have interviewed and examined the patient. I have reviewed the medical record and/or the pre-anesthesia evaluation, pertinent labs, and test results. This contains updated information obtained within 48 hours of Surgery/Procedure. SIGNATURE: Demario Underwood MD PATIENT NAME: Matteo Thompson DATE: June 29, 2023 TIME: 7:34 AM CSN: [id number] [facility] HISTORY PHYSICALon HISTORY PHYSICAL HNO ID: [id number] Author: Shaun Delacruz MD Service: Orthopaedic Surgery Author Type: Physician Type: HANDP Filed: 06/29/2023 7:33 AM Note Text: UPDATED HISTORY AND PHYSICAL EXAMINATION SERVICE DATE: 06/29/2023 SERVICE TIME: 7:33 AM PHYSICAL EXAM MUST BE COMPLETED ON ADMISSION The History and Physical (completed in the past 30 days) has been reviewed and the patient has been examined. The contents accurately reflect the patient's condition with the following additions or revisions since the HANDP was completed. Examination indicates no changes. This HANDP can be found in the Electronic Medical Record dated 06/13/23. SIGNATURE: Shaun Delacruz MD PATIENT NAME: Matteo Thompson DATE: June 29, 2023 TIME: 7:33 AM [facility] NURSING PROGon 06-29-2023 NURSING PROG HNO ID: [id number] Author: Elsa Ramirez, RN Service: ? Author Type: Registered Nurse Type: Nursing Progress Note Filed: 06/29/2023 7:50 AM Note Text: Dr. Underwood at bedside for Left interscalene nerve block. RN at bedside, pt monitored throughout, BP 168/78 Temp 36.2 ?C (97.2 ?F) (Temporal Artery) Resp 18 SpO2 98% .Pt tolerated procedure without difficulty. 2mg Versed given after sign in. [facility] OPERATIVE NOon 06-29-2023 OPERATIVE NO HNO ID: [id number] Author: Shaun Delacruz MD Service: Orthopaedic Surgery Author Type: Physician Type: Operative Report Filed: 06/29/2023 12:51 PM Note Text: OPERATIVE/PROCEDURE REPORT LOG ID: [id number] SURGERY/PROCEDURE DATE: 06/29/2023 INCISION/PROCEDURE START TIME: 8:15 AM INCISION CLOSE/PROCEDURE END TIME: 9:14 AM SURGEON(S)/PROCEDURALI ST(S) AND DYNAMITE RECLAIMER(S): Surgeon(s) and Role: * Shaun Delacruz MD - Primary Nurse Practitioner: Solomon Paul APRN.FINISHING MACHINE TENDER SURGERY/PROCEDURE(S): Left reverse total shoulder arthroplasty, open biceps tenodesis ANESTHESIA: General SURGERY/PROCEDURE DETAILS: Matteo Thompson is a 73 year old man who presented with persistent pain and shoulder weakness due to massive rotator cuff tearing. Based on the level of impairment, I offered reverse total shoulder arthroplasty for the purposes of pain relief and improved function of the shoulder. The risks, benefits, and alternatives to the procedure were discussed in detail in the office prior to scheduling surgery, and the patient expressed agreement and understanding with the plan. The patient was greeted in the preoperative holding area and identified by name and date of . Preoperative nerve block was administered. A preoperative meeting was held between the patient, myself, and other personnel that would be participating in surgery, and all were in agreement that left reverse total shoulder arthroplasty was the intended procedure. The left shoulder was marked as the operative site. The patient was taken to the operating room and transferred to the operating table in the supine position. General anesthesia was induced with endotracheal intubation. The patient was placed in the beach chair position with bilateral lower extremities padded and bilateral lower extremity sequential compression devices were applied. Intravenous antibiotic was given. The shoulder and upper extremity were prepped and draped in a sterile fashion. Time out was performed to confirm the correct patient, procedure, and operative site, and all were in agreement that left reverse shoulder arthroplasty was the correct procedure. I began by making a standard deltopectoral approach to the shoulder. The skin was incised sharply with a scalpel, and the subcutaneous tissues were dissected with Bovie electrocautery. Betadine was introduced into the surgical field for protection against Propionibaterium acnes infection. The deltopectoral interval was identified using the cephalic vein as a landmark, and the vein was taken medially with the pectoralis muscle. After releasing subdeltoid adhesions, the subacromial space was cleared bluntly and a Brown deltoid retractor was placed. I then identified the long head of biceps tendon within the bicipital groove. There was erythema and degenerative change with flattening of the tendon. Biceps tendon was secured with Fiberwire suture woven through the proximal tendon and the tendon was transected above this. The excess proximal biceps tendon was removed. The tendon was tenodesed to the upper border of pectoralis major using the Fiberwire suture. The rotator cuff was examined. The patient was found to have complete tearing of supraspinatus with retraction. The glenohumeral joint was exposed by tenotomizing the subscapularis tendon from the lesser tuberosity of the humerus using Bovie electrocautery. The proximal humerus was exposed after releasing soft tissues from around the humeral neck. Using a guide, the humeral head was cut in 30 degrees of retroversion. All remaining osteophytes and irregularities were then removed from the humeral neck with a rongeour. The axillary nerve was palpated and found to be intact. The glenoid was exposed next, with the humeral head retracted posteriorly using a Hohmann retractor. I exposed the coracoid process and removed the stump of the biceps tendon from the superior glenoid. The anterior labrum was removed and a Cobra retractor was placed in the subscapularis fossa. Another Hohmann retractor was then placed superiorly to expose the entire glenoid. The cartilage was found to be worn. I removed the remaining labrum and marked the center of the glenoid with the Bovie. Using sequential guides, the glenoid baseplate was placed and securely fixed using locking screws. I placed the glenosphere and tested the ibarra taper mechanism, then secured this with a central screw. The area was then thoroughly irrigated and inspected for any remaining bone or soft tissue that might cause impingement, and this was removed. The humerus was then brought forward and exposed proximally with the Brown deltoid retractor and sharp Hohmann retractor. The canal was sequentially reamed. The metaphyseal reamer was then used to allow placement of the humerosocket. The canal was thoroughly irrigated. I then placed the final humeral component and sea (more content not included)... Normal [facility] US KIDNEY/BLADDERon 06-22-20 US KIDNEY/BLADDER * * *Final Report* * * DATE OF EXAM: Jun 22 2023 12:11PM EMANUEL 1055 - US KIDNEY/BLADDER / PROCEDURE REASON: [id number] ABNORMAL RADIOLOGIC FINDINGS ON DX IMAGING OF R KIDNEY * * * * Physician Interpretation * * * * EXAMINATION: RENAL ULTRASOUND CLINICAL HISTORY: Abnormal radiographic findings on diagnostic imaging of right kidney. Indeterminate renal lesion on unenhanced chest CT 02/12/2023 TECHNIQUE: Sonography of the kidneys and urinary bladder was performed. Images were obtained and stored in a permanent archive. MQ: UR_1 COMPARISON: Chest CT 02/12/2023, renal ultrasound 02/16/2023 RESULT: Right Kidney: -Renal length: 13.1 cm -Parenchyma: Normal parenchymal echogenicity. Normal parenchymal thickness. -Collecting system: No hydronephrosis. -Calculus: No echogenic, shadowing calculus. -Lesion: 16 mm and 8 mm upper pole simple cysts. Left Kidney: -Renal length: 12.7 cm -Parenchyma: Normal parenchymal echogenicity. Normal parenchymal thickness. -Collecting system: No hydronephrosis. -Calculus: No echogenic, shadowing calculus. -Lesion: 9 mm upper pole simple cyst Bladder: Normal sonographic appearance. IMPRESSION: Benign-appearing cysts. [employer] Set Up Operator: FREDY Transcribe Date/Time: Jun 24 2023 8:20A Dictated by : ALBERT CUBA MD This examination was interpreted and the report reviewed and electronically signed by: ALBERT CUBA MD on Jun 24 2023 8:22AM EST [id number] [facility] CNCOon 06-14-2023 CNCO Letter Text [facility] ECG COMPLETEon 06-13-2023 Atrial Rate 52 BPM [facility] Calculated P [place] 69 degrees [facility] Calculated R Fri[place] 68 degrees [facility] Calculated T Friant 58 degrees [facility] nd [facility] P-R Interval 166 ms [facility] QRS Duration 72 ms [facility] QT Interval 414 ms [facility] QTC Calculation (Bazett) 385 ms [facility] Ventricular Rate 52 BPM [facility] ECG COMPLETE Ventricular Rate : 5 2 BPM Atrial Rate : 52 BPM P-R Interval : 166 ms QRS Duration : 72 ms Q-T Interval : 414 ms QTC Calculation(Bazett) : 385 ms Calculated P Friant : 69 degrees Calculated R Friant : 68 degrees Calculated T Friant : 58 degrees SINUS BRADYCARDIA WITH MARKED SINUS ARRHYTHMIA OTHERWISE NORMAL ECG NO PREVIOUS ECGS AVAILABLE Confirmed by IVON SLATER MD ([id number]) on 06/13/2023 5:02:57 PM NAME : MATTEO THOMPSON PID : [id number] : 1950 Gender : Male Race : ORD : [id number] Procedure Date : Jun 13 2023 09:07:59 Edit Date : Jun 13 2023 17:02:59 Diagnosis: SINUS BRADYCARDIA WITH MARKED SINUS ARRHYTHMIA OTHERWISE NORMAL ECG NO PREVIOUS ECGS AVAILABLE Confirmed by IVON SLATER MD ([id number]) on 06/13/2023 5:02:57 PM Test Reason : HCS Location : 10 : PAT/ Overread By : IVON SLATER MD Edited By : IVON SLATER MD Referred By : SHAUN DELACRUZ Acquired by : JAYNE, [facility] HISTORY PHYSICALon HISTORY PHYSICAL HNO ID: [id number] Author: Jillian Du PA-C Service: ? Author Type: Physician Senior Biostatistician Type: HANDP Filed: 06/13/2023 1:33 PM Note Text: HISTORY AND PHYSICAL EXAMINATION SERVICE DATE: 06/13/2023 SERVICE TIME: 1:33 PM PRIMARY CARE PHYSICIAN: Eduin Granados MD REASON FOR VISIT: Matteo Thompson is a 73 year old male who is scheduled for Procedure(s): REVERSE TOTAL SHOULDER ARTHROPLASTY (Left) at the request of Dr. Shaun Delacruz for consultation. My final recommendation will be communicated back to the requesting physician by way of shared medical record or letter. Subjective The patient has the following: ACTIVE PROBLEM LIST Allergic to Bees Chronic Obstructive Lung Disease (Hcc) Coronary Arteriosclerosis Essential Hypertension Hyperlipidemia Nicotine Dependence, Cigarettes, With Other Nicotine-Induced Disorders Factor V Leiden (Hcc) Heterozygous Alpha 1-Antitrypsin Deficiency (Hcc) COVID-19 Immunization Status Overdue - Covid-19 Vaccine () Overdue since 04/27/2023 07/04/2021 Imm Admin: COVID-19 original vaccine, full dose, monovalent (MODERNA) 11/18/2020 Imm Admin: COVID-19 original vaccine, full dose, monovalent (MODERNA) 10/22/2020 Imm Admin: COVID-19 original vaccine, full dose, monovalent (MODERNA) CHIEF COMPLAINT: pre op HPI: Matteo Thompson is a 73 year old male presenting for pre-anesthesia consultation. Pt has history of shoulder pain. 10/10 at the worst. Above procedure recommended to manage symptoms. Procedure scheduled on 06/29/2023 at [facility]. REVIEW OF SYSTEMS: General: No weight loss, malaise or fevers. Neurological: Negative for: headaches, peripheral neuropathy, seizures, TIA and strokes. Respiratory: Positive for: COPD and tobacco use. Patient's COPD severity: mild. Negative for: asthma, current cough, dyspnea, home oxygen, orthopnea, URI < 2 weeks and obstructive sleep apnea. Cardiovascular: Denies dizziness or syncope. Positive for: CAD, hyperlipidemia and hypertension Patient's last office visit The following tests and/or procedures were performed: cardiac stents. Negative for: AICD/PPM, arrhythmia, chest pain, CHF, DVT/PE, recent [place], murmur/valvular heart disease, open heart surgery and valve surgery. GI: Negative for: abdominal pain, GERD, GI bleed <30 days, hepatitis, liver disease, nausea and vomiting. : Denies kidney disease Negative for: dysuria, frequent urination, hematuria and urinary tract infection. Endocrine: Negative for: diabetes mellitus, hyperthyroidism and hypothyroidism. Hematology: Positive for: factor V Leiden and chronic anti-coagulation/plate let meds. Patient is on anti-coagulation/plate let medication(s): Plavix and Aspirin. Negative for: anemia, bruises/bleeds easily, hemophilia, thrombocytopenia and von Willebrand disease. Oncology: No history of CA metastasis, chemo within 30 days, or radiotherapy within 90 days. No history of oncological symptoms or problems. Psych: Negative for: anxiety, bipolar disorder and depression. Musculoskeletal: See HPI. Positive for: back pain (R side lower back) and joint pain. Skin: Negative for lesions, rash and itching. PAST MEDICAL HISTORY Diagnosis Date Appendicitis, acute 02/11/2016 Chronic obstructive pulmonary disease (COPD) (HCC) Coronary artery disease Heart attack (HCC) HLD (hyperlipidemia) Hypertension PAST SURGICAL HISTORY Procedure Laterality Date APPENDECTOMY 02/11/2016 CARDIAC CATHETERIZATION HX 2006 stent HERNIA REPAIR HX 2011 laparoscopic - unsure ORTHOPEDICS SURGERY HX Left knee FAMILY HISTORY Problem Relation Age of Onset Anesthesia Problems No Family History Social History Tobacco Use Smoking status: Every Day Packs/day: 0.50 Years: 30.00 Additional pack years: 0.00 Total pack years: 15.00 Types: Cigarettes Vaping Use Vaping Use: Never used Substance Use Topics Alcohol use: Yes Alcohol/week: 7.5 standard drinks of alcohol Types: 3 Cans of Beer (12oz) per week Prior to Admission medications as of 06/13/23 0908 Medication Sig Last Dose Taking atorvastatin (LIPITOR) 40 mg tablet Taking Yes losartan (COZAAR) 50 mg tablet Take by mouth. Taking Yes cholecalciferol (VITAMIN D) 1,000 unit tab tablet Take 1,000 Units by mouth once daily. Taking Yes Ascorbic Acid (VITAMIN C) 500 mg chew Take 500 mg by mouth once daily. Taking Yes vit C/E/Zn/coppr/lutein/ze axan (PRESERVISION AREDS-2 ORAL) Take by mouth. Taking Yes aspirin 81 mg chewable tablet Take 81 mg by mouth once daily. Taking Yes carvedilol (COREG) 6.25 mg tablet Take 3.125 mg by mouth twice daily with meals. Taking Yes multivitamin tablet Take 1 tablet by mouth once daily. Taking Yes clopidogrel (PLAVIX) 75 mg ORAL Tab Take 75 mg by mouth two times a week. Mon and Taking Yes buPROPion SR (ZYBAN SR; WELLBUTRIN SR) 150 mg 12 hr tablet Not Taking rosuvastatin (CR (more content not included)... Normal [facility] CBC W Auto Differential pane l (Bld)on 05-25-2023 Basophils (Bld) [#/Vol] 0.04 10*3/uL Normal <0.11 [facility] Comment on above: Order Comment: Speci men Type: BLOOD SPECIMENOrdering Facility: External Submitter Address: , , Performed By: #### 5 7021-8 ####[facility] [place] [employer] LABCLIA [id number] [place] [address] [facility] Basophils/100 WBC (Bld) 0.4 % Normal [facility] Comment on above: Order Comment: Speci [facility] Type: BLOOD SPECIMENOrdering Facility: External Submitter Address: , , Performed By: #### 5 7021-8 ####[facility] [place] [employer] LABCLIA [id number] [place] [id number] [facility] Differential cell count method Nom (Bld) Auto Normal [facility] Comment on above: Order Comment: Speci [facility] Type: BLOOD SPECIMENOrdering Facility: External Submitter Address: , , Performed By: #### 5 7021-8 ####[facility] [place] [employer] LABCLIA [id number] [place] [address] [facility] Eosinophils (Bld) [#/Vol] 0.24 10*3/uL Normal <0.46 [facility] Comment on above: Order Comment: Speci [facility] Type: BLOOD SPECIMENOrdering Facility: External Submitter Address: , , Performed By: #### 5 7021-8 ####[facility] [place] LABCLIA [id number] [place] [address] [facility] Eosinophils/100 WBC (Bld) 2.4 % Normal [facility] Comment on above: Order Comment: Speci men Type: BLOOD SPECIMENOrdering Facility: External Submitter Address: , , Performed By: #### 5 7021-8 ####[facility] LABCLIA [id number] [facility] [place] [address] [facility] Erythrocyte distribution width (RBC) [Ratio] 13.0 % Normal 11.5-15.0 [facility] Comment on above: Order Comment: Speci men Type: BLOOD SPECIMENOrdering Facility: External Submitter Address: , , Performed By: #### 5 7021-8 ####[facility] LABCLIA [id number] [facility] [place] [address] [facility] Hematocrit (Bld) [Volume fraction] 52.1 % High 39.0-51.0 [facility] Comment on above: Order Comment: Speci men Type: BLOOD SPECIMENOrdering Facility: External Submitter Address: , , Performed By: #### 5 7021-8 ####[facility] LABCLIA [id number] [facility] [address] [facility] Hemoglobin (Bld) [Mass/Vol] 16.8 g/dL Normal 13.0-17.0 [facility] Comment on above: Order Comment: Speci men Type: BLOOD SPECIMENOrdering Facility: External Submitter Address: , , Performed By: #### 5 7021-8 ####[facility] LABCLIA [id number] [facility] [place] [address] [facility] Immature granulocytes (Bld) [#/Vol] 0.03 10*3/uL Normal <0.10 [facility] Comment on above: Order Comment: Speci men Type: BLOOD SPECIMENOrdering Facility: External Submitter Address: , , Performed By: #### 5 7021-8 ####[facility] [place] LABCLIA [id number] [facility] [place] [address] [facility] Immature granulocytes/100 WBC (Bld) 0.3 % Normal [facility] Comment on above: Order Comment: Speci men Type: BLOOD SPECIMENOrdering Facility: External Submitter Address: , , Performed By: #### 5 7021-8 ####[facility] LABCLIA [id number] [place], [place] [id number] [place] [address] Lymphocytes (Bld) [#/Vol] 2.12 10*3/uL Normal 1.00-4.00 [facility] Comment on above: Order Comment: Speci men Type: BLOOD SPECIMENOrdering Facility: External Submitter Address: , , Performed By: #### 5 7021-8 ####[facility] LABCLIA [id number] [place], [place] [id number] [place] [address] Lymphocytes/100 WBC (Bld) 21.3 % Normal [facility] Comment on above: Order Comment: Speci men Type: BLOOD SPECIMENOrdering Facility: External Submitter Address: , , Performed By: #### 5 7021-8 ####[facility] LABCLIA [id number] [place], [place] [id number] [place] [address] MCH (RBC) [Entitic mass] 33.7 pg Normal 26.0-34.0 [facility] Comment on above: Order Comment: Speci men Type: BLOOD SPECIMENOrdering Facility: External Submitter Address: , , Performed By: #### 5 7021-8 ####[facility] LABCLIA [id number] [place], [place] [address] [place] [address] MCHC (RBC) [Mass/Vol] 32.2 g/dL Normal 30.5-36.0 [facility] Comment on above: Order Comment: Speci men Type: BLOOD SPECIMENOrdering Facility: External Submitter Address: , , Performed By: #### 5 7021-8 ####[facility] LABCLIA [id number] [place] [address] [facility] MCV (RBC) [Entitic vol] 104.4 fL High 80.0-100.0 [facility] Comment on above: Order Comment: Speci men Type: BLOOD SPECIMENOrdering Facility: External Submitter Address: , , Performed By: #### 5 7021-8 ####[facility] [place] LABCLIA [id number] [place] [address] [place] Monocytes (Bld) [#/Vol] 0.89 10*3/uL High <0.87 [facility] Comment on above: Order Comment: Speci men Type: BLOOD SPECIMENOrdering Facility: External Submitter Address: , , Performed By: #### 5 7021-8 ####[facility] [place] LABCLIA [id number] [place] [address] [place] Monocytes/100 WBC (Bld) 8.9 % Normal [facility] Comment on above: Order Comment: Speci men Type: BLOOD SPECIMENOrdering Facility: External Submitter Address: , , Performed By: #### 5 7021-8 ####[facility] [place] LABCLIA [id number] [place] [address] [place] Neutrophils (Bld) [#/Vol] 6.64 10*3/uL Normal 1.45-7.50 [facility] Comment on above: Order Comment: Speci men Type: BLOOD SPECIMENOrdering Facility: External Submitter Address: , , Performed By: #### 5 7021-8 ####[facility] LABCLIA [id number] [facility] [address] [place] Neutrophils/100 WBC (Bld) 66.7 % Normal [facility] Comment on above: Order Comment: Speci men Type: BLOOD SPECIMENOrdering Facility: External Submitter Address: , , Performed By: #### 5 7021-8 ####[facility] [place] LABCLIA [id number] [place] [address] [place] Nucleated RBC (Bld) [#/Vol] Normal [facility] Comment on above: Order Comment: Speci men Type: BLOOD SPECIMENOrdering Facility: External Submitter Address: , , Performed By: #### 5 7021-8 ####[facility] [place] LABCLIA [id number] [facility] [place] [address] [place] Nucleated RBC/100 WBC (Bld) [Ratio] Normal [facility] Comment on above: Order Comment: Speci men Type: BLOOD SPECIMENOrdering Facility: External Submitter Address: , , Performed By: #### 5 7021-8 ####[facility] [place] LABCLIA [id number] [place] [address] [place] [facility] Platelet mean volume (Bld) [Entitic vol] 10.9 fL Normal 9.0-12.7 [facility] Comment on above: Order Comment: Speci men Type: BLOOD SPECIMENOrdering Facility: External Submitter Address: , , Performed By: #### 5 7021-8 ####[facility] LABCLIA [id number] [place] [address] [facility] Platelets (Bld) [#/Vol] 153 10*3/uL Normal 150-400 [facility] Comment on above: Order Comment: Speci men Type: BLOOD SPECIMENOrdering Facility: External Submitter Address: , , Performed By: #### 5 7021-8 ####[facility]EL[facility] LABCLIA [id number] [place] [address] [facility] RBC (Bld) [#/Vol] 4.99 10*6/uL Normal 4.20-6.00 [facility] Comment on above: Order Comment: Speci men Type: BLOOD SPECIMENOrdering Facility: External Submitter Address: , , Performed By: #### 5 7021-8 ####[facility] [place] LABCLIA [id number] [place] [address] [facility] WBC (Bld) [#/Vol] 9.96 10*3/uL Normal 3.70-11.00 [facility] Comment on above: Order Comment: Speci men Type: BLOOD SPECIMENOrdering Facility: External Submitter Address: , , Performed By: #### 5 7021-8 ####[facility] [place] LABCLIA [id number] [place] [address] [facility] Comprehensive metabolic 2000 panelon 05-25-2023 Albumin [Mass/Vol] 4.3 g/dL Normal 3.9-4.9 [facility] Comment on above: Order Comment: Speci men Type: BLOOD SPECIMENOrdering Facility: External Submitter Address: , , Performed By: #### 3 016-3, , , ####[facility] [place] LABCLIA [id number] [place] [address] [facility] ALP [Catalytic activity/Vol] 74 U/L Normal 38-113 [facility] Comment on above: Order Comment: Speci men Type: BLOOD SPECIMENOrdering Facility: External Submitter Address: , , Performed By: #### 3 016-3, , , ####[facility] [place] LABCLIA [id number] [place] [address] [facility] ALT With P-5'-P [Catalytic activity/Vol] 41 U/L Normal 10-54 [facility] Comment on above: Order Comment: Speci men Type: BLOOD SPECIMENOrdering Facility: External Submitter Address: , , Performed By: #### 3 016-3, , , ####[facility] [place] LABCLIA [id number] [place] [address] [facility] Anion gap [Moles/Vol] 9 mmol/L Normal 9-18 [facility] Comment on above: Order Comment: Speci men Type: BLOOD SPECIMENOrdering Facility: External Submitter Address: , , Performed By: #### 3 016-3, , , ####[facility] [place] LABCLIA [id number] [place] [address] [facility] AST With P-5'-P [Catalytic activity/Vol] 32 U/L Normal 14-40 [facility] Comment on above: Order Comment: Speci men Type: BLOOD SPECIMENOrdering Facility: External Submitter Address: , , Performed By: #### 3 016-3, , , ####[facility] [place] LABCLIA [id number] [place] [address] [place] Bilirubin [Mass/Vol] 1.4 mg/dL High 0.2-1.3 [facility] Comment on above: Order Comment: Speci men Type: BLOOD SPECIMENOrdering Facility: External Submitter Address: , , Performed By: #### 3 016-3, , , ####[facility] [place] LABCLIA [id number] [place] [address] [place] Calcium [Mass/Vol] 10.2 mg/dL Normal 8.5-10.2 [facility] Comment on above: Order Comment: Speci men Type: BLOOD SPECIMENOrdering Facility: External Submitter Address: , , Performed By: #### 3 016-3, , , ####[facility] [place] LABCLIA [id number] [place] [address] [place] Chloride [Moles/Vol] 102 mmol/L Normal 97-105 [facility] Comment on above: Order Comment: Speci men Type: BLOOD SPECIMENOrdering Facility: External Submitter Address: , , Performed By: #### 3 016-3, , , ####[facility] [place] LABCLIA [id number] [place] [address] [place] CO2 [Moles/Vol] 29 mmol/L Normal 22-30 [facility] Comment on above: Order Comment: Speci men Type: BLOOD SPECIMENOrdering Facility: External Submitter Address: , , Performed By: #### 3 016-3, , , ####[facility] [place] LABCLIA [id number] [place] [address] [place] Creatinine [Mass/Vol] 0.59 mg/dL Low 0.73-1.22 [facility] Comment on above: Order Comment: Speci men Type: BLOOD SPECIMENOrdering Facility: External Submitter Address: , , Performed By: #### 3 016-3, 64860-6, , ####[facility] LABIA [id number] [place] [address] [facility] [place] Creatinine and Glomerular filtration rate.predicted panel (S/P/Bld) 102 mL/min/1.73m??? Normal >=60 [facility] Comment on above: Order Comment: Edson daisy Type: BLOOD SPECIMENOrdering Facility: External Submitter Address: , , Result Comment: Cora mated Glomerular Filtration Rate (eGFR) is calculated using the 2020 CKD-EPI creatinine equation. This equation utilizes serum creatinine, sex, and age as parameters. The creatinine assay has traceable calibration to isotope dilution-mass spectrometry. Refer to KDIGO guidelines for clinical interpretation. In patients with unstable renal function, e.g. those with acute kidney injury, the eGFR may not accurately reflect actual GFR. Performed By: #### 3 016-3, 35504-9, , ####[facility] LABIA [id number] [place] [address] [place] Glucose [Mass/Vol] 93 mg/dL Normal 74-99 [facility] Comment on above: Order Comment: Edson villa Type: BLOOD SPECIMENOrdering Facility: External Submitter Address: , , Result Comment: The [place] Diabetes Association (ADA) provides guidance for cutoff values for fasting glucose and random glucose. The ADA defines fasting as no caloric intake for at least 8 hours. Fasting plasma glucose results between 100 to 125 mg/dL indicate increased risk for diabetes (prediabetes). Fasting plasma glucose results greater than or equal to 126 mg/dL meet the criteria for diagnosis of diabetes. In the absence of unequivocal hyperglycemia, results should be confirmed by repeat testing. In a patient with classic symptoms of hyperglycemia or hyperglycemic crisis, random plasma glucose results greater than or equal to 200 mg/dL meet the criteria for diagnosis of diabetes. Reference: Standards of Medical Care in Diabetes 2016, [place] Diabetes Association. Diabetes Care. 2016.39(Suppl 1). Performed By: #### 3 016-3, 93784-2, , ####[facility] [place] LABCLIA [id number] [place] [address] [place] Potassium [Moles/Vol] 5.3 mmol/L High 3.7-5.1 [facility] Comment on above: Order Comment: Speci men Type: BLOOD SPECIMENOrdering Facility: External Submitter Address: , , Performed By: #### 3 016-3, , , ####[facility] [place] LABCLIA [id number] [place] [address] [place] Protein [Mass/Vol] 7.2 g/dL Normal 6.3-8.0 [facility] Comment on above: Order Comment: Speci men Type: BLOOD SPECIMENOrdering Facility: External Submitter Address: , , Performed By: #### 3 016-3, , , ####[facility] [place] [employer] LABCLIA [id number] [place] [address] [place] Sodium [Moles/Vol] 140 mmol/L Normal 136-144 [facility] Comment on above: Order Comment: Speci men Type: BLOOD SPECIMENOrdering Facility: External Submitter Address: , , Performed By: #### 3 016-3, , , ####[facility] LABCLIA [id number] [place] [address] [place] Urea nitrogen [Mass/Vol] 13 mg/dL Normal 9-24 [facility] Comment on above: Order Comment: Speci men Type: BLOOD SPECIMENOrdering Facility: External Submitter Address: , , Performed By: #### 3 016-3, , , ####[facility] [place] LABCLIA [id number] [place] [address] [place] HbA1c (Bld)on 05-25-2023 Average glucose Estimated from glycated hemoglobin (Bld) [Mass/Vol] 103 mg/dL Normal [facility] Comment on above: Order Comment: Edson daisy Type: BLOOD SPECIMEN Ordering Facility: External Submitter Address: , , Result Comment: eAG: (Estimated average glucose) is a calculated value from HgbA1c and is self pay representative of the average blood glucose level in the last 2-3 month period. Performed By: #### 5 5454-3 #### [facility] CLIA [id number] [address] OF [facility] HbA1c (Bld) [Mass fraction] 5.2 % Normal 4.3-5.6 [facility] Comment on above: Order Comment: Edson daisy Type: BLOOD SPECIMEN Ordering Facility: External Submitter Address: , , Result Comment: [place] Diabetes Association guidelines indicate that patients with HgbA1c in the range 5.7-6.4% are at increased risk for development of diabetes, and intervention by lifestyle modification may be beneficial. HgbA1c greater or equal to 6.5% is considered diagnostic of diabetes. Performed By: #### 5 5454-3 #### [facility] CLIA [id number] [address] STATES OF [facility] Lipid 1996 panelon 3 Cholesterol [Mass/Vol] 135 mg/dL Normal <200 [facility] Comment on above: Order Comment: Edson daisy Type: BLOOD SPECIMENOrdering Facility: External Submitter Address: , , Result Comment: <200 mg/dL, Desirable 200-239 mg/dL, Borderline high >239 mg/dL, High Performed By: #### 3 016-3, 39369-2, 69699-7, 77257-0 ####[facility] LABCLIA [id number] [address] OF [facility] Cholesterol in HDL [Mass/Vol] 62 mg/dL Normal >39 [facility] Comment on above: Order Comment: Edson daisy Type: BLOOD SPECIMENOrdering Facility: External Submitter Address: , , Result Comment: 40-5 9 mg/dL, Acceptable >59 mg/dL, High: Negative risk factor for coronary heart disease <40 mg/dL, Low: Positive risk factor for coronary heart disease Performed By: #### 3 016-3, , , ####[facility] LABCLIA [id number] [facility] [place] [address] [place] Cholesterol in LDL [Mass/Vol] 62 mg/dL Normal <100 [facility] Comment on above: Order Comment: Speci men Type: BLOOD SPECIMENOrdering Facility: External Submitter Address: , , Result Comment: <100 mg/dL, Optimal 100-129 mg/dL, Near optimal/above optimal 130-159 mg/dL, Borderline high 160-189 mg/dL, High >189 mg/dL, Very high Secondary prevention optimal LDL Cholesterol levels are recommended to be < 70 mg/dL Performed By: #### 3 016-3, , , ####[facility] LABCLIA [id number] [facility] [place] [address] [facility] [place] Cholesterol in LDL/Cholesterol in HDL [Mass ratio] 1.00 {ratio} Normal <2.54 [facility] Comment on above: Order Comment: Speci men Type: BLOOD SPECIMENOrdering Facility: External Submitter Address: , , Result Comment: Refe rence: 1. National Cholesterol Education Program ATP III Guideline At-A-Glance Quick Desk Reference: National Heart, Lung, and Blood [place]. National Institutes of Health. 2001: NIH Publication No. 01-3305. 2. An International Atherosclerosis Society position paper: global recommendations for the management of dyslipidemia: executive summary, Atherosclerosis. 2014: 232(2):410-413. Performed By: #### 3 016-3, , , ####[facility] LABCLIA [id number] [facility] [place] [address] [place] Cholesterol in VLDL [Mass/Vol] 11 mg/dL Normal <30 [facility] Comment on above: Order Comment: Tanyai daisy Type: BLOOD SPECIMENOrdering Facility: External Submitter Address: , , Performed By: #### 3 016-3, , , ####[facility] LABCLIA [id number] [place] [address] [facility] Cholesterol non HDL [Mass/Vol] 73 mg/dL Normal <130 [facility] Comment on above: Order Comment: Edson villa Type: BLOOD SPECIMENOrdering Facility: External Submitter Address: , , Result Comment: <130 mg/dL, Optimal 130-159 mg/dL, Near optimal/above optimal 160-189 mg/dL, Borderline high 190-219 mg/dL, High >219 mg/dL, Very high Secondary prevention optimal non HDL Cholesterol levels are recommended to be <100 mg/dL Performed By: #### 3 016-3, , , 05631-5 ####[facility] LABCLIA [id number] [address] Cholesterol.total/Chol esterol in HDL [Mass ratio] 2.18 {ratio} Normal <5.10 [facility] Comment on above: Order Comment: Tanyaharoon villa Type: BLOOD SPECIMENOrdering Facility: External Submitter Address: , , Performed By: #### 3 016-3, , , 82824-0 ####[employer] [facility] [place] [facility] LABCLIA [id number] [address] FASTING TIME 12 hrs Normal [facility] Comment on above: Order Comment: Edson villa Type: BLOOD SPECIMENOrdering Facility: External Submitter Address: , , Performed By: #### 3 016-3, , , 13810-2 ####[facility] LABCLIA [id number] [place] [address] [facility] Triglyceride [Mass/Vol] 54 mg/dL Normal <150 [facility] Comment on above: Order Comment: Edson villa Type: BLOOD SPECIMENOrdering Facility: External Submitter Address: , , Result Comment: <150 mg/dL, Normal 150-199 mg/dL, Borderline high 200-499 mg/dL, High >499 mg/dL, Very high Performed By: #### 3 016-3, 19975-9, 93443-6, 36752-2 ####[facility] LABCLIA [id number] [place] [address] [facility] Magnesium SerPl-mCncon 05-25 Magnesium [Mass/Vol] 2.1 mg/dL Normal 1.7-2.3 [facility] Comment on above: Order Comment: Speci daisy Type: BLOOD SPECIMENOrdering Facility: External Submitter Address: , , Performed By: #### 3 016-3, 35509-8, 25118-2, 23017-4 ####[facility] LABCLIA [id number] [place] [address] [place] TSH SerPl-aCncon 05-25-2023 TSH Qn 1.280 m[IU]/L Normal 0.270-4.200 [facility] Comment on above: Order Comment: Speci daisy Type: BLOOD SPECIMENOrdering Facility: External Submitter Address: , , Performed By: #### 3 016-3, 54693-3, 16189-9, 66357-1 ####[facility] LABCLIA [id number] [place] [address] [facility] CNPNon 05-22-2023 CNPN Telephone (ORMDRG) MATTEO THOMPSON ([id number]) 1950 [address] [facility] Date Time Provider Department 05/22/23 [facility] During your visit today, we recorded the following information about you: Park Trotter 05/22/2023 10:35 AM Signed Please reach out to patient and assist with scheduling post-op physical therapy. Surgery is 06-29-2023. He should be seen approximately 1 week post-op. Thank you. Alma Rosa Sherman 05/22/2023 11:23 AM Signed Called patient and scheduled appt for 07/06/23. Allergies As of Date: 05/22/2023 Noted Allergy Reaction AMOXICILLIN 01/23/2007 2 - Rash CONTRAST DYE 01/23/2007 7 - Swelling KETEK (TELITHROMYCIN) 01/23/2007 2 - Rash Date Reviewed: 04/27/2023 Reviewed by: Lacey Meadows MA - Fully Assessed Reason for Visit: Appointment [186] Cmt: Physical therapy Prescriptions as of 05/22/2023 - aspirin 81 mg chewable tablet Take 81 mg by mouth once daily. - carvedilol (COREG) 6.25 mg tablet Take 3.125 mg by mouth twice daily with meals. - multivitamin tablet Take 1 tablet by mouth once daily. - rosuvastatin (CRESTOR) 20 mg ORAL Tab Take one(1) tablet daily. - enalapril (VASOTEC) 5 mg ORAL Tab Take one(1) tablet twice daily. - clopidogrel (PLAVIX) 75 mg ORAL Tab Take one(1) tablet daily. - nitroglycerin sublingual 0.4 mg SUBLINGUAL Subl Dissolve one(1) tablet under the toungue as needed for chest pain,every 5 min x3 Problem List As Of Date 05/22/2023 Noted Resolved Appendicitis, acute [K35.80] 02/11/2016 03/15/2016 Encounter Status:Closed by ALMA ROSA PEOPLES on 05/22/23 [facility] CNOVon 04-27-2023 CNOV Office Visit (ORMDRG ) MATTEO THOMPSON ([id number]) 1950 [address] [facility] Date Time Provider Department 04/27/23 11:45 AM SHAUN DELACRUZ [facility] During your visit today, we recorded the following information about you: Shaun Delacruz MD 04/27/2023 1:33 PM Signed ORTHOPAEDIC SHOULDER AND ELBOW SERVICE HISTORY AND PHYSICAL EXAM REFERRING PROVIDER: No referring provider defined for this encounter. CHIEF COMPLAINT: Left shoulder pain and weakness PAIN EVALUATION 04/27/2023 1155 Pain Location: Shoulder-Left Description: Aching;Sharp;Shooting Duration Units: Years Frequency: Intermittent Matteo Thompson is a 73 year old man who presents today for evaluation of his left shoulder. He has had worsening pain and diminished function of the left upper extremity over the past several months. He was told over 3 years ago that he had a complete tear of his rotator cuff but opted to forego surgery at that time. He has been generally functioning well until just recently but now feels he has difficulty with most tasks using the arm. PAST MEDICAL HISTORY: PAST MEDICAL HISTORY Diagnosis Date Appendicitis, acute 02/11/2016 Chronic obstructive pulmonary disease (COPD) (HCC) Coronary artery disease Heart attack (HCC) Hypertension PAST SURGICAL HISTORY: PAST SURGICAL HISTORY Procedure Laterality Date APPENDECTOMY 02/11/2016 CARDIAC CATHETERIZATION HX 2005 stent HERNIA REPAIR HX 2010 laparoscopic - unsure ORTHOPEDICS SURGERY HX Left knee SOCIAL HISTORY: Social History Tobacco Use Smoking status: Every Day Packs/day: 0.50 Years: 30.00 Additional pack years: 0.00 Total pack years: 15.00 Types: Cigarettes Vaping Use Vaping Use: Never used Substance Use Topics Alcohol use: Yes Alcohol/week: 7.5 standard drinks of alcohol Types: 3 Cans of Beer (12oz) per week ALLERGIES: ALLERGIES Allergen Reactions Amoxicillin Rash Contrast Dye Swelling Ketek [Telithromyci* Rash MEDICATIONS: Current Outpatient Medications on File Prior to Visit Medication Sig aspirin 81 mg chewable tablet Take 81 mg by mouth once daily. carvedilol (COREG) 6.25 mg tablet Take 3.125 mg by mouth twice daily with meals. multivitamin tablet Take 1 tablet by mouth once daily. rosuvastatin (CRESTOR) 20 mg ORAL Tab Take one(1) tablet daily. enalapril (VASOTEC) 5 mg ORAL Tab Take one(1) tablet twice daily. clopidogrel (PLAVIX) 75 mg ORAL Tab Take one(1) tablet daily. nitroglycerin sublingual 0.4 mg SUBLINGUAL Subl Dissolve one(1) tablet under the toungue as needed for chest pain,every 5 min x3 No current facility-administered medications on file prior to visit. PHYSICAL EXAMINATION: There were no vitals taken for this visit. EXAM: Shoulder Musculoskeletal Exam Inspection Left Ecchymosis: none Peripheral edema: none Atrophy: none Symmetry: symmetric Masses: none Skin tenting: none Prior incision: none Palpation Left Crepitus: no crepitus Increased warmth: none Tenderness: present Anterior shoulder: moderate Posterior shoulder: mild Clavicle: none AC joint: mild Sternoclavicular joint: none Rotator cuff: moderate Greater tuberosity: mild Trapezius: mild Medial scapula: none Superior pole of scapula: none Inferior pole of scapula: none Bicipital groove: mild Proximal biceps: moderate Range of Motion Left Active ROM: abnormal and pain. Passive ROM: abnormal and pain. Active forward elevation: 90. Passive forward elevation: 120. Shoulder active abduction: 90. Passive abduction: 90. Active external rotation at side: 60. Passive external rotation at side: 60. Active external rotation in abduction: 80. Passive external rotation in abduction: 80. Active internal rotation in abduction: 60. Passive internal rotation in abduction: 60. Internal rotation: T12. Strength Left External rotation: 4+/5. Internal rotation: 4+/5. Abduction: 4+/5. Neurovascular Left Left shoulder nerve sensation is normal. Scapula Left Left shoulder scapula is normal. Special Tests Left Rotator Cuff Signs Neer's test: positive Bui test: positive External rotation lag sign: negative Supraspinatus: positive Belly press test: negative Painful arc test: positive Lift-off sign: negative Biceps/hyun Signs [place]'s test: positive Clicking/popping: negative Speed's test: positive AC Joint Signs Active horizontal adduction pain: negative Single finger test: negative General Constitutional: appears stated age Labored breathing: no Psychiatric: normal mood and affect and no acute distress Neurological: alert and oriented x3 Skin: intact Lymphadenopathy: none IMAGING: I reviewed radiographs of his left shoulder showing chronic changes of rotator cuff tear arthropathy with humeral head elevation and evidence of conta (more content not included)... Normal [facility] XR SHLDR >/=3V AP/JESSICA AP/OTH R LTon 04-27-2023 XR SHLDR >/=3V AP/JESSICA AP/OTHR LT * * *Final Report* * * DATE OF EXAM: Apr 27 2023 8:59AM LAURA 5252 - XR SHLDR >/=3V AP/JESSICA AP/OTHR LT / PROCEDURE REASON: multiple diagnoses * * * * Physician Interpretation * * * * EXAM(s): XR SHLDR >/=3V AP/JESSICA AP/OTHR LT EXAM DATE/TIME: 04/27/2023 8:59 AM HISTORY: 73 years old Clinical information: Chronic left shoulder pain Chronic left shoulder pain LEFT SHOULDER PAIN [place] Outlet View Axillary TECHNIQUE: Images: XR SHLDR >/=3V AP/JESSICA AP/OTHR LT Comparison: None. RESULT: Findings: Severe narrowing of the AC joint. Mild narrowing of the glenohumeral joint.Decrease in the acromiohumeral interval. The bone density is unremarkable. IMPRESSION: Degenerative changes as discussed Steel Die Press Set Up Operator: [facility] Transcribe Date/Time: Apr 27 2023 12:10P Dictated by : GIGI DENT DO This examination was interpreted and the report reviewed and electronically signed by: GIGI DENT DO on Apr 27 2023 12:12PM EST [id number] [facility] XR Shoulder - left 3 Viewson 04-27-2023 IMPRESSION: Degenerative changes as discussed Steel Die Press Set Up Operator: [facility] Transcribe Date/Time: Apr 27 2023 12:10P Dictated by : GIGI DENT DO This examination was interpreted and the report reviewed and electronically signed by: GIGI DENT DO on Apr 27 2023 12:12PM EST [facility] * * *Final Report* * * DATE OF EXAM: Apr 27 2023 8:59AM LAURA 5252 - XR SHLDR >/=3V AP/JESSICA AP/OTHR LT / PROCEDURE REASON: multiple diagnoses * * * * Physician Interpretation * * * * EXAM(s): XR SHLDR >/=3V AP/JESSICA AP/OTHR LT EXAM DATE/TIME: 04/27/2023 8:59 AM HISTORY: 73 years old Clinical information: Chronic left shoulder pain Chronic left shoulder pain LEFT SHOULDER PAIN [place] Out[place] View Axillary TECHNIQUE: Images: XR SHLDR >/=3V AP/JESSICA AP/OTHR LT Comparison: None. RESULT: Findings: Severe narrowing of the AC joint. Mild narrowing of the glenohumeral joint.Decrease in the acromiohumeral interval. The bone density is unremarkable. [facility] Provider, Tim blanco [place] - 04/27/2023 * * *Final Report* * * DATE OF EXAM: Apr 27 2023 8:59AM LAURA 5252 - XR SHLDR >/=3V AP/JESSICA AP/OTHR LT / PROCEDURE REASON: multiple diagnoses * * * * Physician Interpretation * * * * EXAM(s): XR SHLDR >/=3V AP/JESSICA AP/OTHR LT EXAM DATE/TIME: 04/27/2023 8:59 AM HISTORY: 73 years old Clinical information: Chronic left shoulder pain Chronic left shoulder pain LEFT SHOULDER PAIN [place] Out[place] View Axillary TECHNIQUE: Images: XR SHLDR >/=3V AP/JESSICA AP/OTHR LT Comparison: None. RESULT: Findings: Severe narrowing of the AC joint. Mild narrowing of the glenohumeral joint.Decrease in the acromiohumeral interval. The bone density is unremarkable. IMPRESSION IMPRESSION: Degenerative changes as discussed Steel Die Press Set Up Operator: FREDY Transcribe Date/Time: Apr 27 2023 12:10P Dictated by : GIGI DENT DO This examination was interpreted and the report reviewed and electronically signed by: GIGI DENT DO on Apr 27 2023 12:12PM EST [facility] Radiology Study observation (narrative) [facility] XR Shoulder - left 3 ViewsOr dered By: [facility] Provider on 04-27-20[address] [facility] [address] CHEST WO IVCONon 02-13-20 Radiology Result ACTIONABLE Abnormal Byron case [facility] Clinic Note - Heme Oncon Clinic Note - Heme Onc History of Presen t Illness: Interval History: The patient was referred to me for further evaluation and management and recommendations for heterozygosity for factor V Leiden,and 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 The patient is being considered for surgery for right knee torn meniscus. History of present illness: The patient is a 68-year-old man with past history of hyperparathyroidism, hypercalcemia, thrombocytopenia, leukocytosis, hypertension, COPD, hyperlipidemia, vitamin D deficiency is scheduled to undergo surgery for torn right meniscus. The patient does complain of pain in the right knee and has difficulty in walking. The patient does not have any antecedent history of deep vein thrombosis, pulmonary embolism nor does he have any family history of deep vein thrombosis or pulmonary embolism or bleeding diathesis. The patient has had left hernia repair, appendectomy, a colonoscopy without any problems a CBC on September 12, 2018 revealed W BC 9.10, hemoglobin 17.5 g/dL, MCV 101, platelets 137,000/mm. Differential count revealed 65% neutrophils, 25% lymphocytes, 8% monocytes, 2% eosinophils He was referred to me for consideration of prophylaxis after surgery. At interview on September 19, 2018 the patient denied any history of deep vein thrombosis, pulmonary embolism, family history of deep and thrombosis, pulmonary embolism, weight loss, fevers, night sweats, bone pains, chest pain, shortness of breath, nausea, vomiting, hematemesis, melena, hematochezia and hematuria. Past medical history: Hypercalcemia Hyperparathyroidism Thrombocytopenia Leukocytosis Hypertension Coronary artery disease COPD Nicotine dependence Hyperlipidemia Osteoarthritis Vitamin D deficiency Past surgical history: Left hernia repair in 2009 Appendectomy in 2016 Urinary stent placement in 2007 Allergies and Intolerances: Allergies: Ionic contrasts: Contrast, Unknown, Active amoxicillin: Drug, Unknown, Active Outpatient Medication Profile: * Patient Currently Takes Medications as of 19-Sep-2018 08:37 documented in Structured Notes carvedilol 6.25 mg oral tablet: Last Dose Taken: , 1 tab(s) orally 2 times a day Vitamin D3 2000 intl units oral capsule: Last Dose Taken: , 1 cap(s) orally once a day losartan 50 mg oral tablet: Last Dose Taken: , 1 tab(s) orally once a day clopidogrel: Last Dose Taken: , 50 milligram(s) orally aspirin 81 mg oral tablet: Last Dose Taken: , 1 tab(s) orally once a day atorvastatin 40 mg oral tablet: Last Dose Taken: , 1 tab(s) orally once a day Vitamin C 1000 mg oral tablet: 1 tab(s) orally once a day Nitrostat 0.4 mg sublingual tablet: 1 tab(s) sublingual every 5 minutes Family History: One brother had [place]. No family history of deep vein thrombosis, pulmonary embolism, or bleeding diathesis Social History: Smoking Status: current every day smoker Tobacco Use: history of abuse Alcohol Use: occasionally Drug Use: denies Additional History: The patient is 68 years old, , has 3 children. Worked as a database engineer. Smoked half a pack per day for 50 years currently smoking. Occasional alcohol. No history of drug abuse Performance: ECOG Performance Status: 1- Restricted from physically stenuous work Vitals and Measurements: Vitals: Temp: 36.6 HR: 62 RR: 16 BP: 131/65 SPO2%: 95 Measurements: HT(cm): 181.3 WT(kg): 106.9 BSA: 2.32 BMI: 32.5 Physical Exam: Constitutional: Well developed, awake/alert/oriented x3, no distress, alert and cooperative Eyes: PERRL, EOMI, clear sclera ENMT: mucous membranes moist, no apparent injury, no lesions seen Head/Neck: Neck supple, no apparent injury, thyroid without mass or tenderness, No JVD, trachea midline, no bruits Respiratory/Thorax: Patent airways, CTAB, normal breath sounds with good chest expansion, thorax symmetric Cardiovascular: Regular, rate and rhythm, no murmurs, 2+ equal pulses of the extremities, normal S 1and S 2 Gastrointestinal: Nondistended, soft, non-tender, no rebound tenderness or guarding, no masses palpable, no organomegaly, +BS, no bruits Genitourinary: No Discharge, vesicles or other abnormalities Musculoskeletal: ROM intact, no joint swelling, normal strength Extremities: normal extremities, no cyanosis edema, contusions or wounds, no clubbing Neurological: alert and oriented x3, intact senses, motor, response and reflexes, normal strength Breast: No masses, tenderness, no discharge or discoloration Lymphatic: No significant lymphadenopathy Psychological: Appropriate mood and behavior Skin: Warm and dry, no lesions, no rashes Assessment and Plan: Assessment and Plan: Assessment: I had a long discussion with the patient and explained to him about increased risk of DVTs with factor V Leiden mutations. These episodes are exacerbated on inactivity. The patient to undergo right knee meniscus surgery. It would be prudent to consider prophylaxis such as Lovenox 40 mg subcutaneous daily then admitted and convert to low-dose Coumadin or Xarelto. The patient understood appreciated all the details provided and was grateful. Thank you for allowing me to participate in care of your patient if you have any questions please feel free to call me. Patient Instructions: Instructions: RTC 4 weeks Care Team (For informational use or entering new Care Team Members): Noe Ham(Referring): , 13-Sep-2018 14:16 Eduin Granados(Primary): , 13-Sep-2018 14:16 Note Recipients: Noe Ham MD - [id number] Eduin Granados MD - [id number] Select Yes when ready to send to Provider(s) Listed Above: Note sent to providers named above Electronic Signatures: Anthony Elkins) (Signed 19-Sep-2018 11:41) Authored: History of Present Illness, Allergies and Outpatient Medication Profile, Problem List, Social History, Performance Assessments, Vitals and Measurements, Physical Exam, Assessment and Plan, Patient Instructions, To Send Document via Auto Fax Last Updated: 19-Sep-2018 11:41 by Anthony Elkins) [facility] Clinic Note - Intakeon 09-19 Clinic Note - Intake Patient Visit Information: Visit TypeNew Visit Patient Stateshematology referral from Dr Ham before knee surgery Source of Informationpatient Vital Signs: Temp (degrees C)36.6 degrees C Temperaturecore Heart Rate (beats/min)62 beats per minute Respiration (breaths/min)16 breath per minute BP Systolic (mm Hg)131 mmHg BP Diastolic (mm Hg)65 mmHg BP Mean (mm Hg)87 mmHg Height in cm181.3 centimeter(s) Height Methodmeasured 09-19-18 Heightstanding Weight in kg106.9 kilogram(s) Weight Methodstanding scale BMI (kg/m2)32.5 BSA (m2)2.32 SpO2 (%)95 % Pain Screening: Patient States Painyes Current Pain Score (0-10)4 Pain Description/LocationKN EE Pain Scale UsedNumeric (0-10) Nurse Notifiedyes VANNESSA Allergies: Ionic contrasts: Contrast, Unknown, Active amoxicillin: Drug, Unknown, Active Outpatient Medication Profile: * Patient Currently Takes Medications as of 19-Sep-2018 08:37 documented in Structured Notes carvedilol 6.25 mg oral tablet: Last Dose Taken: , 1 tab(s) orally 2 times a day Vitamin D3 2000 intl units oral capsule: Last Dose Taken: , 1 cap(s) orally once a day losartan 50 mg oral tablet: Last Dose Taken: , 1 tab(s) orally once a day clopidogrel: Last Dose Taken: , 50 milligram(s) orally aspirin 81 mg oral tablet: Last Dose Taken: , 1 tab(s) orally once a day atorvastatin 40 mg oral tablet: Last Dose Taken: , 1 tab(s) orally once a day Vitamin C 1000 mg oral tablet: 1 tab(s) orally once a day Nitrostat 0.4 mg sublingual tablet: 1 tab(s) sublingual every 5 minutes Notification: NotificationsAll annual screens currently due. Falls: Have you fallen in the last 6 monthsno Do you have a fear of fallingno Do you feel you need assistanceno Is the patient using an assistive deviceno Spiritual/Procedural: Spiritual/cultural/rel igious practices important for us to knowno Adv Dir: Living [facility] Violence: Do you feel UNSAFE going back to the place you are livingno Are you or have you been threatened or abused physically,emotionally or sexually abused by anyoneno Depression: 1) During the past 2 wks, have you felt down, depressed or hopelessno 4) Have you had thoughts of harming anyone elseno 2) During the past 2 wks, have you felt little interest/pleasure doing things no 3) Have you had thoughts of harming yourselfno Substance: How many times in the past year have you hd 5 or more drinks within 24 hours0 How many times in past year have you used recreational or prescription drugs for non-medical reasons0 Patient Declined to Answerno Electronic Signatures: Karlee Farnsworth (Moveline ASST) (Signed 19-Sep-2018 08:38) Authored: Patient Visit Information, Vital Signs, Allergies, Outpatient Medication Profile, Adult Admission Risk Screen Last Updated: 19-Sep-2018 08:38 by Karlee Farnsworth (Moveline ASST) Normal [facility] Office Visiton 04-12-2017 Documentation of current medications (procedure) Done Invalid Interpretation Code [facility] Work Phone: [phone] Fall risk assessment No [facility] Work Phone: [phone] Protein mass conc Done [facility] Work Phone: [phone] Clinical Lists Update: Prelo supervisor receiving and processing 10-06-2016 Albumin mass conc 3.8 g/dL [place] [facility] Work Phone: [phone] Alkaline phosphatase (ALP) 55 U/L Invalid Interpretation Code [facility] Work Phone: [phone] ALP enzyme act/vol (Bld) 55 U/L [facility] Work Phone: [phone] ALT enzyme act/vol 38 U/L [facility] Work Phone: [phone] Anion gap 9 mmol/L Invalid Interpretation Code [facility] Work Phone: [phone] Anion gap molar conc 9 mmol/L [facility] Work Phone: [phone] AST enzyme act/vol 31 U/L [facility] Work Phone: [phone] Bilirubin mass conc 0.9 mg/dL [facility] Work Phone: [phone] Calcium mass conc 9.0 mg/dL [facility] Work Phone: [phone] Chloride molar conc 101 mmol/L [facility] Work Phone: [phone] CO2 30 mmol/L Invalid Interpretation Code [facility] Work Phone: [phone] CO2 ppres (BldV) 30 mmol/L [facility] Work Phone: [phone] Creatinine mass conc 0.69 mg/dL [facility] Work Phone: [phone] Erythrocyte distribution width Ratio (RBC) 12.1 % [facility] Work Phone: [phone] Erythrocytes (RBC) 4.58 10*6/uL Low [facility] Work Phone: [phone] Glucose 90 mg/dL Invalid Interpretation Code [facility] Work Phone: [phone] Glucose mass conc 90 mg/dL [facility] Work Phone: [phone] Hematocrit (HCT) 47.0 % Invalid Interpretation Code [facility] Work Phone: [phone] Hematocrit Volume Fraction (Bld) 47.0 % [facility] Work Phone: [phone] Hemoglobin mass conc (Bld) 16.0 g/dL [facility] Work Phone: [phone] MCH 34.9 pg High [facility] Work Phone: [phone] MCH Entitic mass (RBC) 34.9 pg High [facility] Work Phone: [phone] MCHC 34.0 g/dL Invalid Interpretation Code [facility] Work Phone: [phone] MCHC mass conc (RBC) 34.0 g/dL [facility] Work Phone: [phone] MCV 102.6 fL High [facility] Work Phone: [phone] MCV Entitic volume (RBC) 102.6 fL High [facility] Work Phone: [phone] Platelet mean volume Entitic volume (Bld) 11.8 fL High [facility] Work Phone: [phone] Platelets 123 10*3/mm3 Low [facility] Work Phone: [phone] Platelets #/vol (Bld) 123 10*3/mm3 Low [facility] Work Phone: [phone] PMV by Brandon 11.8 fL High [facility] Work Phone: [phone] Potassium molar conc 4.1 mmol/L [facility] Work Phone: [phone] Protein mass conc 7.4 g/dL [facility] Work Phone: [phone] RBC #/vol (Bld) 4.58 10*6/uL Low [facility] Work Phone: [phone] RDW-CA 12.1 % Invalid Interpretation Code [facility] Work Phone: [phone] Sodium molar conc 136 mmol/L [facility] Work Phone: [phone] Urea nitrogen mass conc 14 mg/dL [facility] Work Phone: [phone] WBC #/vol (Bld) 10.1 10*3/uL [facility] Work Phone: [phone] WBC (Leukocytes) 10.1 10*3/uL Invalid Interpretation Code [facility] Work Phone: [phone] Clinical Lists Update: Prelo supervisor receiving and processing 10-05-2016 Left ventricular Ejection fraction 55 % [facility] Work Phone: [phone] Office Visit: [facility] 04-13-20 16 Dietary management education, guidance, and counseling (procedure) yes Invalid Interpretation Code [facility] Work Phone: [phone] Clinical Lists Update: Prelo supervisor receiving and processing 04-04-2016 Bilirubin.direct mass conc 0.34 mg/dL High [facility] Work Phone: [phone] Bilirubin.indirect mass conc 0.8 mg/dL High [facility] Work Phone: [phone] Cholesterol in HDL mass conc 55 mg/dL [facility] Work Phone: [phone] Cholesterol in LDL mass conc 50 mg/dL [facility] Work Phone: [phone] Cholesterol mass conc 123 mg/dL [facility] Work Phone: [phone] Cholesterol.total/Chol esterol in HDL mass ratio 2.2 {ratio} [facility] Work Phone: [phone] Triglyceride mass conc 88 mg/dL [facility] Work Phone: [phone] Office Visiton 09-10-2015 Tobacco smoking status KYIS Former smoker [facility] Work Phone: [phone] Tobacco use CPHS Former smoker Invalid Interpretation Code [facility] Work Phone: [phone] Office Visit: [facility] 01-06-20 15 cardiac risk group C [facility] Work Phone: [phone] General cardiovascular disease 10Y risk [#] [place].Gil'Shari N/A [facility] Work Phone: [phone] Tobacco smoking status [facility] Never [facility] Work Phone: [phone] Replaced Document: Liset Null CG Observationson 01-05-2015 EKG QRS axis 64 deg [facility] Work Phone: [phone] electrocardiogram interpretation Marked sinus Bradycardia BORDERLINE RHYTHM Invalid Interpretation Code [facility] Work Phone: [phone] GE use only - for [employer] import when terms are not otherwise specified 414 ms Invalid Interpretation Code [facility] Work Phone: [phone] Interpretation Marked sinus Bradycardia BORDERLINE RHYTHM [facility] Work Phone: [phone] P Friant 56 deg [facility] Work Phone: [phone] P wave axis, electrocardiogram 56 deg Invalid Interpretation Code [facility] Work Phone: [place] Interval 166 ms [facility] Work Phone: [phone] [place] interval, electrocardiogram 166 ms Invalid Interpretation Code [facility] Work Phone: [phone] Pulse (Heart Rate) 47 /min Invalid Interpretation Code [facility] Work Phone: [phone] QRS axis, electrocardiogram 64 deg Invalid Interpretation Code [facility] Work Phone: [phone] QRS Duration 92 ms [facility] Work Phone: [phone] QRS duration, electrocardiogram 92 ms Invalid Interpretation Code [facility] Work Phone: [phone] QT Interval new path ms [facility] Work Phone: [phone] QT interval, electrocardiogram new path ms Invalid Interpretation Code [facility] Work Phone: [phone] QTc Lees 414 ms [facility] Work Phone: [phone] T Friant 57 deg [facility] Work Phone: [phone] T wave axis, electrocardiogram 57 deg Invalid Interpretation Code [facility] Work Phone: [phone] Replaced Document: Liset Null CG Observationson 09-16-2013 Pulse (Heart Rate) 386 ms Invalid Interpretation Code [facility] Work Phone: [phone] Lab Reporton 07-29-2012 Albumin/Globulin mass ratio 1.12 {ratio} [facility] Work Phone: [phone] Globulin 3.4 g/dL Invalid Interpretation Code [facility] Work Phone: [phone] Globulin mass conc (S) 3.4 g/dL [facility] Work Phone: [phone] Urea nitrogen/Creatinine mass ratio 13 mg/mg [facility] Work Phone: [phone] Vital Signs Date Time Vital Sign Value Performing Clinician Laureni micaela 2024 09:08-0400 Body mass index (BMI) [Ratio] 29.39 kg/m2 Albert Carranza MD Work Phone: [facility] 2024 09:08-0400 Body temperature 97.2 [degF] Albert Carranza MD Work Phone: [facility] 2024 09:08-0400 Body weight 98.3 kg Albert Carranza MD Work Phone: [facility] 2024 09:08-0400 Diastolic blood pressure 75 mm[Hg] Albert Carranza MD Work Phone: [facility] 2024 09:08-0400 Heart rate 68 /min Albert Carranza MD Work Phone: [facility] 2024 09:08-0400 Respiratory rate 16 /min Albert Carranza MD Work Phone: [facility] 2024 09:08-0400 SaO2% (BldA) [Mass fraction] 97 % Albert Carranza MD Work Phone: [facility] 2024 09:08-0400 Systolic blood pressure 127 mm[Hg] Albert Carranza MD Work Phone: [facility] 06-13-2023 09:04-0400 Body height 182.9 cm Pacc 2 Work Phone: [facility] 06-13-2023 09:04-0400 Body temperature 98.6 [degF] Pacc 2 Work Phone: [facility] 06-13-2023 09:04-0400 Body weight 91.17 kg Pacc 2 Work Phone: [facility] 06-13-2023 09:04-0400 Diastolic blood pressure 53 mm[Hg] Pacc 2 Work Phone: [facility] 06-13-2023 09:04-0400 Heart rate 56 /min Pacc 2 Work Phone: [facility] 06-13-2023 09:04-0400 Respiratory rate 16 /min Pacc 2 Work Phone: [facility] 06-13-2023 09:04-0400 SaO2% (BldA) [Mass fraction] 95 % Pacc 2 Work Phone: [facility] 06-13-2023 09:04-0400 Systolic blood pressure 114 mm[Hg] Pacc 2 Work Phone: [facility] 04-12-2017 11:04-0400 BMI (Body Mass Index) 30.32 kg/m2 [facility] Work Phone: 04-12-2017 11:04-0400 BP Diastolic 60 mm[Hg] [facility] Work Phone: 04-12-2017 11:04-0400 BP Systolic 106 mm[Hg] [facility] Work Phone: 04-12-2017 11:04-0400 Height 182.88 cm [facility] Work Phone: 04-12-2017 11:04-0400 Pulse (Heart Rate) 60 /min [facility] Work Phone: 04-12-2017 11:04-0400 Respiratory Rate 20 /min [facility] Work Phone: 04-12-2017 11:04-0400 Weight 101.41 kg [facility] Work Phone: 10-10-2016 11:50-0500 BSA (Body Surface Area) 2.29 m2 [facility] Work Phone: 01-05-2015 11:16-0400 Heart rate 47 /min [facility] Work Phone: 09-16-2013 09:47-0500 Heart rate 386 ms [facility] Work Phone: Encounters Encounter Date Encounter Type Care Provider Facility Start: 2024 End: 2024 ambulatory Albert Carranza MD Work Phone: Hematology/Oncology Comment on above: Leukocytosis, unspec ified type (Primary Dx); Erythrocytosis Start: 2024 End: 2024 Patient encounter procedure Albert Carranza MD Work Phone: Hematology/Oncology Start: 01-28-2024 Telephone encounter Benjamin Rufus Heather arango DO Work Phone: Hematology/Oncology Comment on above: New Patient Start: 01-25-2024 Orders Only Provider [facility] Pulmonary Medicine Comment on above: Chronic obstructive pulmonary disease, unspecified COPD type (HCC) (Primary Dx) Start: 01-03-2024 End: 01-04-2024 ambulatory [place] Facility:[facility] Start: 08-10-2023 End: 08-10-2023 Patient encounter procedure Shaun Delacruz MD Work Phone: Orthopedics Comment on above: 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) Start: 08-10-2023 End: 08-10-2023 ambulatory [place] Facility:[facility] Start: 08-10-2023 End: 08-10-2023 Subsequent hospital visit by physician [facility] Elaine Agee Work Phone: Radiology Comment on above: Chronic left shoulde r pain [M25.512, G89.29] Start: 08-06-2023 End: 08-06-2023 Orders Only Shaun Delacruz MD Work Phone: Orthopedics Comment on above: Chronic left shoulde r pain (Primary Dx) 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); Shoulder stiffness, left Start: 07-30-2023 End: 07-30-2023 [facility] Facility:[facility] Start: 07-30-2023 End: 07-30-2023 ambulatory David Alexander PT Work Phone: [facility] Comment on above: 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); Shoulder stiffness, left Start: 07-23-2023 End: 07-23-2023 [facility] Facility:[facility] Start: 07-23-2023 End: 07-23-2023 ambulatory David Alexander PT Work Phone: [facility] Comment on above: 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); Shoulder stiffness, left Start: 07-17-2023 End[facility] Start: 07-16-2023 End: 07-17-2023 ambulatory David Alexander PT Work Phone: [facility] Comment on above: 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); Acute pain of left shoulder; Shoulder stiffness, left Start: 07-13-2023 End: 07-13-2023 ambulatory [place] Facility:[facility] Start: 07-13-2023 End: 07-13-2023 Patient encounter procedure Ida Bolton PA-C Work Phone: Orthopedics Comment on above: 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) Start: 07-09-2023 End: 07-09-2023 ambulatory DIA BOLTON Facility:[facility] Start: 07-09-2023 End: 07-09-2023 Subsequent hospital visit by physician [facility] Comment on above: Chronic left shoulde r pain [M25.512, G89.29] Start: 07-06-2023 End: 07-06-2023 ambulatory Zulma Holbrook PT Work Phone: [facility] Comment on above: Status post reverse total shoulder replacement, unspecified laterality; Acute pain of left shoulder Start: 06-29-2023 End: 06-29-2023 ambulatory SHAUN DELACRUZ Facility:[facility] Start: 06-22-2023 ambulatory [facility] Start: 06-13-2023 End: 06-13-2023 Preprocedural examination done [facility] 2 Work Phone: [facility] Work Phone: Start: 06-13-2023 Encounter for other preprocedural examination UNKNOWN PROVIDER [facility] Start: 06-13-2023 End: 06-13-2023 PAT [facility] 2 Work Phone: Pre Anesthesia Comment on above: Pre-op evaluation (P rimary Dx); Coronary arteriosclerosis; Factor V Leiden (HCC); Heterozygous alpha 1-antitrypsin deficiency (HCC); Chronic obstructive pulmonary disease, unspecified COPD type (HCC); Essential hypertension; Hyperlipidemia, unspecified hyperlipidemia type; Nicotine dependence, cigarettes, with other nicotine-induced disorders Start: 05-25-2023 End: 05-26-2023 ambulatory [place] Facility:[facility] Start: 05-22-2023 Telephone encounter Shaun Delacruz MD Work Phone: Orthopedics Comment on above: Appointment (Physica l therapy) Start: 05-14-2023 Orders Only Shaun Delacruz MD Work Phone: Orthopedics Comment on above: Rotator cuff tear ar thropathy of left shoulder (Primary Dx); Status post reverse total shoulder replacement, unspecified laterality Start: 04-27-2023 End: 04-27-2023 ambulatory [place] Facility:[facility] Start: 04-27-2023 ambulatory UNKNOWN PROVIDER [facility] Start: 04-27-2023 End: 04-27-2023 Subsequent hospital visit by physician [facility] Work Phone: Radiology Comment on above: Chronic left shoulde r pain [M25.512, G89.29] Start: 04-02-2023 Orders Only Shaun Delacruz MD Work Phone: Orthopedics Comment on above: Chronic left shoulde r pain (Primary Dx) Start: 02-16-2023 End: 02-16-2023 Subsequent hospital visit by physician [facility] 1 Work Phone: Radiology Comment on above: Abnormal radiologic findings on diagnostic imaging of right kidney [R93.421] Start: 02-12-2023 End: 02-12-2023 Subsequent hospital visit by physician [facility] Radiology Comment on above: Abnormal weight loss [R63.4] Start: 09-19-2018 Patient encounter procedure Anthony Elkins Facility:[facility] Syl Procedures Date Procedure Procedure Detail Performing Clinician Start: 01-03-2024 Lipid 1996 panel - S екатерина or Plasma Provider [facility] Start: 08-10-2023 Radex shoulder compl ete minimum 2 views Ida Bolton PA-C Work Phone: Start: 06-13-2023 Ecg routine ecg w/le ast 12 lds i&r only Jillian Null Florian MORA Work Phone: Start: 05-25-2023 Lipid 1996 panel - S екатерина or Plasma [facility] 2 Work Phone: Start: 04-27-2023 Radex shoulder compl ete minimum 2 views Ida Bolton PA-C Work Phone: Start: 02-12-2023 Ct thorax w/o contra st material Eduin Granados MD Work Phone: Start: 01-03-2023 Lipid 1996 panel - S екатерина or Plasma Shaun Delacruz MD Work Phone: Start: 04-12-2017 End: 04-12-2017 Follow Up Appt 1 year Newton Leon MD Start: 04-12-2017 End: 04-12-2017 MMEleazar Leon MD Start: 04-12-2017 End: 04-18-2017 Nuclear stress test -Lexiscan Newton Leon MD Start: 10-10-2016 End: 10-10-2016 Follow Up Appt 6 months Eleazar Hull Start: 10-10-2016 End: 10-10-2016 MMEleazar Leon MD Start: 10-06-2016 End: 04-12-2017 *Hepatic Function Panel Eleazar Hull Start: 10-06-2016 End: 04-12-2017 Lipid panel [AGGREGATE] Eleazar Hull Start: 04-13-2016 End: 04-13-2016 Dietary management education, guidance, and counseling Neelima Borden Start: 04-13-2016 End: 04-13-2016 STORAGE ADMINISTRATOR Fatemeh Chavez PA-C Work Phone: Start: 04-13-2016 End: 04-13-2016 Follow Up Appt 6 months Fatemeh ahumada PA-C Work Phone: Start: 03-27-2016 End: 04-05-2016 *Hepatic Function Panel Eleazar Hull Start: 03-27-2016 End: 04-05-2016 Lipid panel [AGGREGATE] Eleazar Hull Start: 09-10-2015 End: 09-10-2015 Follow Up Appt 6 months Eleazar Hull Start: 09-10-2015 End: 09-10-2015 MMM Newton Leon MD Start: 07-02-2015 End: 10-15-2015 *Hepatic Function Panel Eleazar Hull Start: 07-02-2015 End: 10-14-2015 Lipid panel [AGGREGATE] Eleazar Hull Start: 01-05-2015 End: 01-05-2015 STORAGE ADMINISTRATOR Fatemeh Chavez PA-C Work Phone: Start: 01-05-2015 End: 01-06-2015 Documentation of current medications Fatemeh Chavez PA-C Work Phone: Start: 01-05-2015 End: 01-05-2015 Electrocardiogram, complete Fatemeh Chavez PA-C Work Phone: Start: 01-05-2015 End: 01-05-2015 Follow Up Appt 6 months Fatemeh ahumada PA-C Work Phone: Start: 07-02-2014 End: 12-30-2014 *Hepatic Function Panel Eleazar Hull Start: 07-02-2014 End: 07-02-2014 Follow Up Appt 6 months Eleazar Hull Start: 07-02-2014 End: 12-30-2014 Lipid panel [AGGREGATE] Eleazar Hull Start: 07-02-2014 End: 07-02-2014 DANIELITO Leon MD Start: 02-23-2014 End: 07-02-2014 *Hepatic Function Panel Fatemeh ahumada PA-C Work Phone: Start: 02-23-2014 End: 07-02-2014 Lipid panel [AGGREGATE] Fatemeh ahumada PA-C Work Phone: Start: 09-16-2013 End: 09-16-2013 STORAGE ADMINISTRATOR Fatemeh Chavez PA-C Work Phone: Start: 09-16-2013 End: 09-16-2013 Electrocardiogram, complete Fatemeh Chavez PA-C Work Phone: Start: 09-16-2013 End: 09-16-2013 Follow Up Appt 6 months Fatemeh ahumada PA-C Work Phone: Start: 03-20-2013 End: 08-29-2013 *Hepatic Function Panel Eleazar Hull Start: 03-20-2013 End: 03-20-2013 Follow Up Appt 6 months Eleazar Hull Start: 03-20-2013 End: 08-29-2013 Lipid panel [AGGREGATE] Eleazar Hull Start: 03-20-2013 End: 03-20-2013 DANIELITO Leon MD Start: 08-02-2012 End: 08-02-2012 Follow Up Appt 6 months Eleazar Hull Start: 01-03-2012 End: 07-30-2012 *Hepatic Function Panel Eleazar Hull Start: 01-03-2012 End: 01-03-2012 Follow Up Appt 6 months Eleazar Hull Start: 01-03-2012 End: 07-30-2012 Lipid panel [AGGREGATE] Eleazar Hull Plan of Treatment Date Care Activity Detail Author Start: 01-02-2029 Lipid panel Lipid Screening [facility] Start: 05-25-2028 Lipid 1996 panel - S екатерина or Plasma Lipid Screening [facility] Start: 05-25-2028 Lipid panel Lipid Screening [facility] Start: 01-04-2028 Lipid 1996 panel - S екатерина or Plasma Lipid Screening [facility] Start: 01-04-2028 LIPID SCREEN LIPID SCREEN [facility] Start: 01-02-2027 Diabetes Screening Diabetes Screenmd g [facility] Start: 05-25-2026 Diabetes Screening Diabetes Screenmd g [facility] Start: 01-03-2026 DIABETES SCREEN DIABETES SCREEN [facility] Start: 01-03-2026 Diabetes Screening Diabetes Screenin g [facility] Start: 02-12-2025 BP Controlled (<130/80) BP Con trolled (<130/80) [facility] Start: 01-02-2025 Hepatitis B surface antibody level LDL Cholesterol [facility] Start: 06-13-2024 BP Controlled (<130/80) BP Con trolled (<130/80) [facility] Start: 05-25-2024 Hepatitis B surface antibody level LDL Cholesterol [facility] Start: 04-27-2024 Covid-19 Vaccine () Covid-19 Vaccine () [facility] Start: 04-27-2024 Influenza vaccination Influenza Vacc ine (#1) [facility] Start: 02-26-2024 End: 02-26-2024 ambulatory Pulmonary Medicine Comment on above: VERBALLY SPOKE T O PATIENT/CONFIRMED APPT 01-25-1120 VERBALLY SPOKE T O PATIENT/CONFIRMED APPT 01-25-1120Chronic obstructive pulmonary disease, unspecified COPD type (HCC) [J44.9] Start: 2024 End: 05-14-2024 BCR/ABL1 P210 AND P190 DIAGNOSTIC PCR BLOOD [facility] Work Phone: Comment on above: Expected: 2024 , Expires: 05/14/2024 Start: 2024 End: 05-14-2024 Erythropoietin (EPO) [Units/volume] in Serum or Plasma [facility] Comment on above: Expected: 2024 , Expires: 05/14/2024 Start: 2024 End: 05-14-2024 MYELOPROLIFERATIVE NEOPLASM PANEL BLOOD [facility] Comment on above: Expected: 2024 , Expires: 05/14/2024 Start: 2024 End: 2024 [facility] visit new patient 2024 9:30 AM EDT Visit (SP) Office Hematology/Oncology [address] [id number] Albert Carranza MD [address] [place] [id number] New patient Hematology/Oncology Comment on above: New patient Start: 08-27-2023 Advance Directive Discussion Advance Directive Discussion [facility] Start: 08-27-2023 Behavioral Health Screening Be havioral Health Screening [facility] Start: 04-27-2023 Covid-19 Vaccine ( season) Covid-19 Vaccine ( season) [facility] Start: 04-27-2023 Influenza vaccination [facility] Start: 08-27-2022 ADVANCE DIRECTIVE DISCUSSION ADVANCE DIRECTIVE DISCUSSION [facility] Start: 08-27-2022 DEPRESSION ASSESSMENT DEPRESSION ASS ESSMENT [facility] Start: 08-29-2021 COVID-19 VACCINE (4 - Booster for Moderna series) COVID-19 VACCINE (4 - Booster for Moderna series) [facility] Start: 08-29-2021 COVID-19 VACCINE (4 - Moderna series) COVID-19 VACCINE (4 - Moderna series) [facility] Start: 04-12-2018 End: 04-12-2018 Appointment Appointment [facility] Work Phone: Start: 04-12-2017 End: 04-12-2017 *Hepatic Function Panel *Hepatic Function Panel [facility] Work Phone: Start: 04-12-2017 End: 04-12-2017 Follow Up Appt 1 year Follow Up Appt 1 year [facility] Work Phone: Start: 04-12-2017 End: 04-12-2017 Lipid panel [AGGREGATE] *Lipid Profile CC PCP [facility] Work Phone: Start: 04-12-2017 End: 04-12-2017 MMM MMM [facility] Work Phone: Start: 04-12-2017 End: 04-12-2017 Nuclear stress test -Lexiscan Nuclear stress test -Lexiscan [facility] Work Phone: Start: 10-10-2016 End: 10-10-2016 Follow Up Appt 6 months Follow Up Appt 6 months [facility] Work Phone: Start: 10-10-2016 End: 10-10-2016 MMM MMM [facility] Work Phone: Start: 10-06-2016 End: 04-12-2017 *Hepatic Function Panel *Hepatic Function Panel [facility] Work Phone: Start: 10-06-2016 End: 04-12-2017 Lipid panel [AGGREGATE] *Lipid Profile CC PCP [facility] Work Phone: Start: 04-13-2016 End: 04-13-2016 STORAGE ADMINISTRATOR STORAGE ADMINISTRATOR [facility] Work Phone: Start: 04-13-2016 End: 04-13-2016 Follow Up Appt 6 months Follow Up Appt 6 months [facility] Work Phone: Start: 03-27-2016 End: 04-05-2016 *Hepatic Function Panel *Hepatic Function Panel [facility] Work Phone: Start: 03-27-2016 End: 04-05-2016 Lipid panel [AGGREGATE] *Lipid Profile CC PCP [facility] Work Phone: Start: 09-10-2015 End: 09-10-2015 Follow Up Appt 6 months Follow Up Appt 6 months [facility] Work Phone: Start: 09-10-2015 End: 09-10-2015 MMM MMM [facility] Work Phone: Start: 07-02-2015 End: 10-15-2015 *Hepatic Function Panel *Hepatic Function Panel [facility] Work Phone: Start: 07-02-2015 End: 10-14-2015 Lipid panel [AGGREGATE] *Lipid Profile CC PCP [facility] Work Phone: Start: 01-05-2015 End: 01-05-2015 STORAGE ADMINISTRATOR STORAGE ADMINISTRATOR [facility] Work Phone: Start: 01-05-2015 End: 01-05-2015 Electrocardiogram, complete EKG (In office) [facility] Work Phone: Start: 01-05-2015 End: 01-05-2015 Follow Up Appt 6 months Follow Up Appt 6 months [facility] Work Phone: Start: 07-02-2014 End: 12-30-2014 *Hepatic Function Panel *Hepatic Function Panel [facility] Work Phone: Start: 07-02-2014 End: 07-02-2014 Follow Up Appt 6 months Follow Up Appt 6 months [facility] Work Phone: Start: 07-02-2014 End: 12-30-2014 Lipid panel [AGGREGATE] *Lipid Profile CC PCP [facility] Work Phone: Start: 07-02-2014 End: 07-02-2014 MMM MMM [facility] Work Phone: Start: 02-23-2014 End: 07-02-2014 *Hepatic Function Panel *Hepatic Function Panel [facility] Work Phone: Start: 02-23-2014 End: 07-02-2014 Lipid panel [AGGREGATE] *Lipid Profile CC PCP [facility] Work Phone: Start: 09-16-2013 End: 09-16-2013 STORAGE ADMINISTRATOR STORAGE ADMINISTRATOR [facility] Work Phone: Start: 09-16-2013 End: 09-16-2013 Electrocardiogram, complete EKG (In office) [facility] Work Phone: Start: 09-16-2013 End: 09-16-2013 Follow Up Appt 6 months Follow Up Appt 6 months [facility] Work Phone: Start: 03-20-2013 End: 08-29-2013 *Hepatic Function Panel *Hepatic Function Panel [facility] Work Phone: Start: 03-20-2013 End: 03-20-2013 Follow Up Appt 6 months Follow Up Appt 6 months [facility] Work Phone: Start: 03-20-2013 End: 08-29-2013 Lipid panel [AGGREGATE] *Lipid Profile CC PCP [facility] Work Phone: Start: 03-20-2013 End: 03-20-2013 MMM MMM [facility] Work Phone: Start: 08-02-2012 End: 08-02-2012 Follow Up Appt 6 months Follow Up Appt 6 months [facility] Work Phone: Start: 01-03-2012 End: 07-30-2012 *Hepatic Function Panel *Hepatic Function Panel [facility] Work Phone: Start: 01-03-2012 End: 01-03-2012 Follow Up Appt 6 months Follow Up Appt 6 months [facility] Work Phone: Start: 01-03-2012 End: 07-30-2012 Lipid panel [AGGREGATE] *Lipid Profile [facility] Work Phone: Start: 2010 RSV Vaccine (1 - 1-d ose 60+ series) RSV Vaccine (1 - 1-dose 60+ series) [facility] Start: 02-14-2000 SHINGRIX VACCINE (1 of 2) LONGO GRIX VACCINE (1 of 2) [facility] Start: 1995 COLOGUARD (FIT-DNA) COLOGUARD (FIT-D NA) [facility] Start: 1995 Colonoscopy COLONOSCOPY [facility] Start: 1995 COLORECTAL CANCER SCREENING CO LORECTAL CANCER SCREENING [facility] Start: [address] COLONOGRAPHY [facility] Start: 1995 FECAL OCCULT BLOOD FECAL OCCULT BLOO D [facility] Start: 1995 Screening for malign ant neoplasm of colon [facility] Start: 1995 SIGMOIDOSCOPY SIGMOIDOSCOPY [facility] Start: 02-14-1980 Zoledronic acid therapy Alpha- 1 Antitrypsin Deficiency Screening [facility] Start: 1969 Urine microalbumin profile [facility] Start: 02-14-1968 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 Annual PCP Team Chronic Disease Visit [facility] Start: 02-14-1968 Anxiety Screening Anxiety Screening [facility] Start: 02-14-1968 Depression Screening Depression Scre ening [facility] Start: 02-14-1968 Spirometry Spirometry [facility] Start: 02-14-1956 Pneumococcal Vaccine : 65+ (1 - PCV) Pneumococcal Vaccine: 65+ (1 - PCV) [facility] Start: 02-14-1956 PNEUMOCOCCAL: 65+ (1 - PCV) PN EUMOCOCCAL: 65+ (1 - PCV) [facility] Start: 1950 ABDOMINAL AORTIC ANE URYSM SCREENING ABDOMINAL AORTIC ANEURYSM SCREENING [facility] Start: 1950 Abdominal aortic ane urysm screening Abdominal Aortic Aneurysm Screening [facility] End: 02-23-2025 LUNG DIFFUSION CAPACITY (DLCO) LUNG DIFFUSION CAPACITY (DLCO) PFT Routine Chronic obstructive pulmonary disease, unspecified COPD type (HCC) 1 Occurrences starting 01/25/2024 until 02/23/2025 [facility] Comment on above: 1 Occurrences starti ng 01/25/2024 until 02/23/2025 End: 02-23-2025 LUNG VOLUMES LUNG VOLUMES PFT Routine Chronic obstructive pulmonary disease, unspecified COPD type (HCC) 1 Occurrences starting 01/25/2024 until 02/23/2025 [facility] Comment on above: 1 Occurrences starti ng 01/25/2024 until 02/23/2025 Patient Education [facility] Work Phone: PT PLAN OF CARE CERTIFICATION PT PLAN OF CARE CERTIFICATION Procedures Routine Status post reverse total shoulder replacement, unspecified laterality Acute pain of left shoulder Ordered: 07/06/2023 [facility] Work Phone: Comment on above: Ordered: 07/06/2023 End: 02-23-2025 SPIROMETRY - BASELINE AND POST DILATOR SPIROMETRY - BASELINE AND POST DILATOR PFT Routine Chronic obstructive pulmonary disease, unspecified COPD type (HCC) 1 Occurrences starting 01/25/2024 until 02/23/2025 [facility] Comment on above: 1 Occurrences starti ng 01/25/2024 until 02/23/2025 XR SHOULDER GENERAL 3V OR MORE AP/TRUE AP/OTHER LEFT XR SHOULDER GENERAL 3V OR MORE AP/TRUE AP/OTHER LEFT Radiology Routine Chronic left shoulder pain 1 Occurrences starting 04/03/2023 [facility] Work Phone: Comment on above: 1 Occurrences starti ng 04/03/2023 XR SHOULDER GENERAL 3V OR MORE AP/TRUE AP/OTHER LEFT XR SHOULDER GENERAL 3V OR MORE AP/TRUE AP/OTHER LEFT Radiology Routine Chronic left shoulder pain 07/09/2023 1:46 PM EST [facility] Work Phone: XR SHOULDER GENERAL 3V OR MORE AP/TRUE AP/OTHER LEFT XR SHOULDER GENERAL 3V OR MORE AP/TRUE AP/OTHER LEFT Radiology Routine Chronic left shoulder pain 1 Occurrences starting 08/06/2023 [facility] Work Phone: Comment on above: 1 Occurrences starti ng 08/06/2023 [facility] Immunizations Immunization Date Immunization Notes Care Provider [facility] 06-19-2023 influenza virus vacc ine, unspecified formulation [employer] Work Phone: [facility] 07-04-2021 influenza virus vacc ine, unspecified formulation Shaun Delacruz MD Work Phone: [facility] Payers Date Payer Category Payer Unknown ANTH BLUE [facility] AND BLUE [facility] ANTH MEDICARE ADVANTAGE PPO [id number] 2023-Present [phone] [address] [place] [address] PPO [id number] 2023 Medicare [id number] 2015 Unknown [id number] 2015 Medicare [id number] 2015 Medicare [id number] 1950 Unknown [id number] Social History Date Type Detail Facility Start: 05-08-2022 Tobacco smoking stat [facility] Smokes tobacco daily [facility] History of tobacco use [facility] Start: 05-08-2022 End: 04-27-2023 Cigarettes smoked current (pack per day) - Reported 0.5 [facility] Start: 05-08-2022 End: 06-13-2023 Alcohol intake Current drinker of alcohol (finding) [facility] Start: 1950 Sex Assigned At Not on file [facility] Start: 05-08-2022 End: 04-27-2023 Tobacco use panel [facility] National Score (1-10 0), lower number is lower risk 40 [facility] Medical Equipment Procedure Code Equipment Code Equipment Origin al Text Equipment Identifier Dates Insert Rsp Djo Surgical Standard Hxe+ Socket Sterile Humeral - [id number] Start: 06-29-2023 Baseplate Rsp P2 30mm Glenoid Sterile - [id number] Start: 06-29-2023 Screw Rsp 5mm 18 mm Bone Lock Glenoid Baseplate Shoulder - [id number] Start: 06-29-2023 Stem Humeral Std Encore Reverse Shoulder [id number] - [id number] Start: 06-29-2023 Head Rsp 36mm Neutral Glenoid Retain Screw - [id number] Start: 06-29-2023 Screw Rsp 5mm 30 mm Bone Lock Glenoid Baseplate Shoulder - [id number] Start: 06-29-2023 Screw Rsp 5mm 26 mm Bone Lock Glenoid Baseplate Shoulder - [id number] Start: 06-29-2023 Screw Rsp 5mm 18 mm Bone Lock Glenoid Baseplate Shoulder - [id number] Start: 06-29-2023 Clinical Notes 02-11-2016 to 2024 Albert Carranza MD - 2024 9:06 AM EDTTelephone Encounter - Monet Lindseyfer - 01/29/2024 8:56 AM EDTTelephone Encounter - Coral Lindsey - 01/29/2024 8:56 AM EDT Note Date & Type Note Facility 2024 Note HNO ID: [id number] Author: ALBERT CARRANZA MD Service: ? Author Type: Physician Type: Progress Notes Filed: 2024 13:53 Note Text: HISTORY OF PRESENT ILLNESS: Matteo Thompson is a 73 year old male referred for abnormal CBC. Patient reports being at his baseline state of health. Previously had some intended weight loss (10 lbs) But no weight loss recently. He is a long-term smoker but is down to 5 cigarettes/day. He also drinks about 5-7 drinks of alcohol per week (sometimes more socially). ASSESSMENT/PLAN: #Intermittent mild leukocytosis #Erythrocytosis #Intermittent mild thrombocytopenia His abnormal lab values have been at least intermittently present for the better part of the past decade which is overall reassuring. I suspect the leukocytosis and erythrocytosis is 2/[address] A/P from 2016 dmeonstrated hepatic steatosis, therefore suspect his mild thrombocytopenia is 2/2 liver disease. When corrected for albumin, his calcium level is normal. Regardless, will obtain lab work to help rule-out more concerning diagnoses. If negative, would not recommend phlebotomy unless hct >55% and even then the clinical benefit is controversial. -BCR/ABL, MPN panel, EPO level Follow-up as needed if above work-up is negative Medical Decision Making: Problems: Moderate: New problem with uncertain prognosis Data: Unique source(s) for external note(s) reviewed: 1 Unique test result(s) reviewed: 1 Unique test(s) ordered: 1 Medical Decision Making Level: 4 - Moderate Written and verbal health teaching given to patient, patient verbalizes understanding and agrees with treatment plan. PAST MEDICAL HISTORY Diagnosis Date Appendicitis, acute 02/11/2016 Chronic obstructive pulmonary disease (COPD) (HCC) Coronary artery disease Heart attack (HCC) HLD (hyperlipidemia) Hypertension PAST SURGICAL HISTORY Procedure Laterality Date APPENDECTOMY 02/11/2016 CARDIAC CATHETERIZATION HX 2006 stent HERNIA REPAIR HX 2011 laparoscopic - unsure ORTHOPEDICS SURGERY HX Left knee FAMILY HISTORY Problem Relation Age of Onset Anesthesia Problems No Family History Social History Tobacco Use Smoking status: Every Day Packs/day: 0.50 Years: 30.00 Additional pack years: 0.00 Total pack years: 15.00 Types: Cigarettes Vaping Use Vaping Use: Never used Substance Use Topics Alcohol use: Yes Alcohol/week: 3.0 standard drinks of alcohol Types: 3 Cans of Beer (12oz) per week ALLERGIES: ALLERGIES Allergen Reactions Amoxicillin Rash Contrast Dye Swelling Ketek [Telithromyci* Rash CURRENT OUTPATIENT MEDICATIONS: ibuprofen (MOTRIN) 200 mg tablet Take 200 mg by mouth every 6 hours as needed for pain. docusate sodium (COLACE) 100 mg capsule Take 1 capsule by mouth two times a day. ondansetron (ZOFRAN) 4 mg tablet Take 1 tablet by mouth every 8 hours as needed. atorvastatin (LIPITOR) 40 mg tablet buPROPion SR (ZYBAN SR; WELLBUTRIN SR) 150 mg 12 hr tablet losartan (COZAAR) 50 mg tablet Take by mouth. cholecalciferol (VITAMIN D) 1,000 unit tab tablet Take 1,000 Units by mouth once daily. Ascorbic Acid (VITAMIN C) 500 mg chew Take 500 mg by mouth once daily. vit C/E/Zn/coppr/lutein/zeaxan (PRESERVISION AREDS-2 ORAL) Take by mouth. aspirin 81 mg chewable tablet Take 81 mg by mouth once daily. carvedilol (COREG) 6.25 mg tablet Take 3.125 mg by mouth twice daily with meals. multivitamin tablet Take 1 tablet by mouth once daily. rosuvastatin (CRESTOR) 20 mg ORAL Tab Take by mouth. enalapril (VASOTEC) 5 mg ORAL Tab Take by mouth. clopidogrel (PLAVIX) 75 mg ORAL Tab Take 75 mg by mouth two times a week. Mon and nitroglycerin sublingual 0.4 mg SUBLINGUAL Subl Dissolve under the tongue. Usual dose for angina is 1 tablet every 5 minutes for maximum of 3 doses in 15 minutes. REVIEW OF SYSTEMS: Review of systems unremarkable except as noted in the HPI. PHYSICAL EXAMINATION: VITAL SIGNS: There were no vitals taken for this visit. Physical Exam Constitutional: General: He is not in acute distress. Appearance: Normal appearance. HENT: Head: Normocephalic and atraumatic. Eyes: Extraocular Movements: Extraocular movements intact. Pulmonary: Effort: Pulmonary effort is normal. No respiratory distress. Skin: Coloration: Skin is not jaundiced. Neurological: General: No focal deficit present. Mental Status: He is alert. Mental status is at baseline. LABS: Basic Labs: Hemoglobin Date Value Ref Range Status 01/03/2024 17.2 (H) 13.0 - 17.0 g/dL Final 05/25/2023 16.8 13.0 - 17.0 g/dL Final 01/03/2023 15.9 13.0 - 17.0 g/dL Final 05/08/2022 17.0 13.0 - 17.0 g/dL Final 08/12/2019 17.3 (H) 13.0 - 17.0 g/dL Final Hematocrit Date Value Ref Range Status 01/03/2024 51.2 (H) 39.0 - 51.0 % Final 05/25/2023 52.1 (H) 39.0 - 51.0 % Final 01/03/2023 48.0 39.0 - 51.0 % Final 05/08/2022 50.6 39.0 - 51.0 % Fin (more content not included)... [facility] 2024 History of Presen t illness Narrative HISTORY OF PRESENT ILLNESS: Matteo Thompson is a 73 year old male referred for abnormal CBC. Patient reports being at his baseline state of health. Previously had some intended weight loss (10 lbs) But no weight loss recently. He is a long-term smoker but is down to 5 cigarettes/day. He also drinks about 5-7 drinks of alcohol per week (sometimes more socially). ASSESSMENT/PLAN: #Intermittent mild leukocytosis #Erythrocytosis #Intermittent mild thrombocytopenia His abnormal lab values have been at least intermittently present for the better part of the past decade which is overall reassuring. I suspect the leukocytosis and erythrocytosis is 2/[address] A/P from 2016 dmeonstrated hepatic steatosis, therefore suspect his mild thrombocytopenia is 2/2 liver disease. When corrected for albumin, his calcium level is normal. Regardless, will obtain lab work to help rule-out more concerning diagnoses. If negative, would not recommend phlebotomy unless hct >55% and even then the clinical benefit is controversial. -BCR/ABL, MPN panel, EPO level Follow-up as needed if above work-up is negative Medical Decision Making: Problems: Moderate: New problem with uncertain prognosis Data: Unique source(s) for external note(s) reviewed: 1 Unique test result(s) reviewed: 1 Unique test(s) ordered: 1 Medical Decision Making Level: 4 - Moderate Written and verbal health teaching given to patient, patient verbalizes understanding and agrees with treatment plan. PAST MEDICAL HISTORY Diagnosis Date Appendicitis, acute 02/11/2016 Chronic obstructive pulmonary disease (COPD) (HCC) Coronary artery disease Heart attack (HCC) HLD (hyperlipidemia) Hypertension PAST SURGICAL HISTORY Procedure Laterality Date APPENDECTOMY 02/11/2016 CARDIAC CATHETERIZATION HX 2005 stent HERNIA REPAIR HX 2010 laparoscopic - unsure ORTHOPEDICS SURGERY HX Left knee FAMILY HISTORY Problem Relation Age of Onset Anesthesia Problems No Family History Social History Tobacco Use Smoking status: Every Day Packs/day: 0.50 Years: 30.00 Additional pack years: 0.00 Total pack years: 15.00 Types: Cigarettes Vaping Use Vaping Use: Never used Substance Use Topics Alcohol use: Yes Alcohol/week: 3.0 standard drinks of alcohol Types: 3 Cans of Beer (12oz) per week ALLERGIES: ALLERGIES Allergen Reactions Amoxicillin Rash Contrast Dye Swelling Ketek [Telithromyci* Rash CURRENT OUTPATIENT MEDICATIONS: ibuprofen (MOTRIN) 200 mg tablet Take 200 mg by mouth every 6 hours as needed for pain. docusate sodium (COLACE) 100 mg capsule Take 1 capsule by mouth two times a day. ondansetron (ZOFRAN) 4 mg tablet Take 1 tablet by mouth every 8 hours as needed. atorvastatin (LIPITOR) 40 mg tablet buPROPion SR (ZYBAN SR; WELLBUTRIN SR) 150 mg 12 hr tablet losartan (COZAAR) 50 mg tablet Take by mouth. cholecalciferol (VITAMIN D) 1,000 unit tab tablet Take 1,000 Units by mouth once daily. Ascorbic Acid (VITAMIN C) 500 mg chew Take 500 mg by mouth once daily. vit C/E/Zn/coppr/lutein/zeaxan (PRESERVISION AREDS-2 ORAL) Take by mouth. aspirin 81 mg chewable tablet Take 81 mg by mouth once daily. carvedilol (COREG) 6.25 mg tablet Take 3.125 mg by mouth twice daily with meals. multivitamin tablet Take 1 tablet by mouth once daily. rosuvastatin (CRESTOR) 20 mg ORAL Tab Take by mouth. enalapril (VASOTEC) 5 mg ORAL Tab Take by mouth. clopidogrel (PLAVIX) 75 mg ORAL Tab Take 75 mg by mouth two times a week. Mon and nitroglycerin sublingual 0.4 mg SUBLINGUAL Subl Dissolve under the tongue. Usual dose for angina is 1 tablet every 5 minutes for maximum of 3 doses in 15 minutes. REVIEW OF SYSTEMS: Review of systems unremarkable except as noted in the HPI. PHYSICAL EXAMINATION: VITAL SIGNS: There were no vitals taken for this visit. Physical Exam Constitutional: General: He is not in acute distress. Appearance: Normal appearance. HENT: Head: Normocephalic and atraumatic. Eyes: Extraocular Movements: Extraocular movements intact. Pulmonary: Effort: Pulmonary effort is normal. No respiratory distress. Skin: Coloration: Skin is not jaundiced. Neurological: General: No focal deficit present. Mental Status: He is alert. Mental status is at baseline. LABS: Basic Labs: Hemoglobin Date Value Ref Range Status 01/03/2024 17.2 (H) 13.0 - 17.0 g/dL Final 05/25/2023 16.8 13.0 - 17.0 g/dL Final 01/03/2023 15.9 13.0 - 17.0 g/dL Final 05/08/2022 17.0 13.0 - 17.0 g/dL Final 08/12/2019 17.3 (H) 13.0 - 17.0 g/dL Final Hematocrit Date Value Ref Range Status 01/03/2024 51.2 (H) 39.0 - 51.0 % Final 05/25/2023 52.1 (H) 39.0 - 51.0 % Final 01/03/2023 48.0 39.0 - 51.0 % Final 05/08/2022 50.6 39.0 - 51.0 % Final 08/12/2019 52.5 (H) 39.0 - 51.0 % Final MCV Date Value Ref Range Status 01/03/2024 102.0 (H) 80.0 - 100.0 fL Final 05/25/2023 104.4 (H) 80.0 - 100.0 fL Final 01/03/2023 101.5 (H) 80.0 - 100.0 fL Final 05/08/2022 99.0 80.0 - 100.0 fL Final 08/12/2019 101.5 (H) 80.0 - 100.0 fL Final Retic % Date Value Ref Range Status 01/03/2024 2.1 (H) 0.4 - 2.0 % Final 01/03/2023 1.9 0.4 - 2.0 % Final WBC Date Value Ref Range Status 01/03/2024 11.68 (H) 3.70 - 11.00 k/uL Final 05/25/2023 9.96 3.70 - 11.00 k/uL Final 01/03/2023 10.88 3.70 - 11.00 k/uL Final 05/08/2022 8.75 3.70 - 11.00 k/uL Final 08/12/2019 9.79 3.70 - 11.00 k/uL Final Abs Neut (ANC) Date Value Ref Range Status 08/12/2019 6.62 1.45 - 7.50 k/uL Final Abs Neut Date Value Ref Range Status 01/03/2024 7.61 (H) 1.45 - 7.50 k/uL Final 05/25/2023 6.64 1.45 - 7.50 k/uL Final 01/03/2023 7.32 1.45 - 7.50 k/uL Final 05/08/2022 6.51 1.45 - 7.50 k/uL Final Abs Lym Date Value Ref Range Status 02/11/2016 2.13 1.00 - 4.00 K/uL Final Platelet Count Date Value Ref Range Status 01/03/2024 128 (L) 150 - 400 k/uL Final 05/25/2023 153 150 - 400 k/uL Final 01/03/2023 162 150 - 400 k/uL Final 05/08/2022 159 150 - 400 k/uL Final 08/12/2019 Platelets Clumped, Estimate Low 150 - 400 k/uL Final Comment: Result checked and verified No clot detected. Platelet count confirmed by manual review of peripheral blood smear. Creatinine Date Value Ref Range Status 01/03/2024 0.60 (L) 0.73 - 1.22 mg/dL Final 05/25/2023 0.59 (L) 0.73 - 1.22 mg/dL Final 01/03/2023 0.63 (L) 0.73 - 1.22 mg/dL Final 05/08/2022 0.84 0.73 - 1.22 mg/dL Final 08/12/2019 0.76 0.73 - 1.22 mg/dL Final BUN Date Value Ref Range Status 01/03/2024 13 9 - 24 mg/dL Final 05/25/2023 13 9 - 24 mg/dL Final 01/03/2023 9 9 - 24 mg/dL Final 05/08/2022 12 9 - 24 mg/dL Final 08/12/2019 13 9 - 24 mg/dL Final AST Date Value Ref Range Status 01/03/2024 29 14 - 40 U/L Final 05/25/2023 32 14 - 40 U/L Final 01/03/2023 31 14 - 40 U/L Final 08/12/2019 34 14 - 40 U/L Final 04/22/2019 27 14 - 40 U/L Final ALT Date Value Ref Range Status 01/03/2024 35 10 - 54 U/L Final 05/25/2023 41 10 - 54 U/L Final 01/03/2023 38 10 - 54 U/L Final 08/12/2019 48 10 - 54 U/L Final 04/22/2019 27 10 - 54 U/L Final Coagulation Labs: PT INR Date Value Ref Range Status 03/05/2018 1.3 0.9 - 1.3 Final Comment: Vitamin K Antagonist (VKA) Therapeutic Range: INR 2 to 3 (Target INR of 2.5) Note: For patients treated with VKA drugs, such as warfarin, the [place] [employer] 2012 Guideline recommends a therapeutic INR range of 2 to 3 (target INR of 2.5). This recommendation includes high-risk patients with antiphospholipid syndrome with previous arterial or venous thromboembolism, current-generation mechanical or bioprosthetic aortic heart valve replacement. Note: Patients with mechanical aortic valve replacement and additional risk factors for thromboembolic events (atrial fibrillation, previous thromboembolism, LV dysfunction, hypercoagulable conditions) or an older generation mechanical AVR (i.e., ball in-Cage) or any mechanical MVR should have a INR therapeutic range of 2.5 to 3.5 (target INR of 3). Cain GH, et al. Chest 2012, 141:7S-47S Lynsey RA, et al. [facility] 2017, 70: 252-289 APTT Date Value Ref Range Status 03/05/2018 28.7 23.0 - 32.4 sec Final Comment: Unfractionated Heparin Therapeutic Ranges: Standard Heparin Nomogram: 53 to 78 seconds (anti-Xa level of 0.3 to 0.7 U/ml) Low Dose/ACS Nomogram: 49 to 67 seconds (anti-Xa level of 0.2 to 0.5 U/ml) Stroke Treatment Nomogram: 49 to 67 seconds (anti-Xa level of 0.2 to 0.5 U/ml) Note: The APTT therapeutic range has been determined for the current lot of laboratory APTT reagent in use throughout the [facility]. CRP Date Value Ref Range Status 01/03/2023 <0.3 <0.9 mg/dL Final 01/05/2016 <0.29 0.00 - 0.30 mg/dL Final Anemia Labs: Ferritin Date Value Ref Range Status 01/03/2023 414.0 30.3 - 565.7 ng/mL Final Iron Date Value Ref Range Status 01/03/2023 207 (H) 41 - 186 ug/dL Final TIBC Date Value Ref Range Status 01/03/2023 277 232 - 386 ug/dL Final Transferrin Saturation Date Value Ref Range Status 01/03/2023 74.7 (H) 15.0 - 57.0 % Final Vitamin B12 Date Value Ref Range Status 01/03/2024 431 232 - 1,245 pg/mL Final 01/03/2023 580 232 - 1,245 pg/mL Final 04/22/2019 427 232 - 1,245 pg/mL Final Folate Date Value Ref Range Status 01/03/2024 >20.0 >4.7 ng/mL Final Comment: A result of > 20 ng/mL is not necessarily indicative of a pathologic or treatable condition: it reflects a limitation of the test methodology. Assay reference range: 4.8 to 24.2 ng/mL. Suitable for detection of folate deficiency. Reference: Folate III (Folate III) [package insert V 1.0 Irish]. [employer], [place], [place]: June 2015. 01/03/2023 >20.0 >4.7 ng/mL Final Comment: A result of > 20 ng/mL is not necessarily indicative of a pathologic or treatable condition: it reflects a limitation of the test methodology. Assay reference range: 4.8 to 24.2 ng/mL. Suitable for detection of folate deficiency. Reference: Folate III (Folate III) [package insert V 1.0 Irish]. [employer], [place], [place]: June 2015. 01/22/2018 >20.0 >4.7 ng/mL Final Comment: A result of > 20 ng/mL is not necessarily indicative of a pathologic or treatable condition: it reflects a limitation of the test methodology. Assay reference range: 4.8 to 24.2 ng/mL. Suitable for detection of folate deficiency. Reference: Folate III (Folate III) [package insert V 1.0 Irish]. [employer], [place], [place]: June 2015. TSH Date Value Ref Range Status 01/03/2024 1.290 0.270 - 4.200 mIU/L Final 05/25/2023 1.280 0.270 - 4.200 mIU/L Final 01/03/2023 0.743 0.270 - 4.200 mIU/L Final Hemolysis/TMA Labs: No results found for: COOMBPOLY , COOMBIGG , NRBSNV3V , LD , HAPTO , C3INTL , C4INTL , CRYO , COLDA Neutropenia Labs: No results found for: ANAINTL , HIVINTL , HEPCAB , HEPATI , EBVDQ , CMVQT , PARVOV , MYMRES , MYPRES Thrombocytopenia Labs: No results found for: PF4COM , SERHEP , PLTCO , PLTAS , PLA1AG Monoclonal Gammopathy Labs: MPA Result Date Value Ref Range Status 01/03/2023 No M protein is identified. No M protein is identified. Final 09/12/2018 No M protein is identified. No M protein is identified. Final Interpretation (MPA) Date Value Ref Range Status 09/12/2018 SEE COMMENT Final Comment: Test Not Indicated K/L Ratio, Serum Date Value Ref Range Status 01/03/2023 1.20 0.26 - 1.65 Final IgG Date Value Ref Range Status 01/03/2023 948 700 - 1,600 mg/dL Final IgA Date Value Ref Range Status 01/03/2023 280 70 - 400 mg/dL Final IgM Date Value Ref Range Status 01/03/2023 43 40 - 230 mg/dL Final Albert Carranza MD documented in this encounter [facility] 01-29-2024 Telephone encounter Note Called patient and gave him the number to call for new patient consult. [facility] 01-29-2024 Miscellaneous Notes Called patient and gave him the number to call for new patient consult. New Pt. Referral, pt. Contacted and informed he would rather be seen in [place] since it is closer to his home. Contacted Dr. Bethea office to have information sent to [facility]. Bing Gregg LPN Spoke with Dr. Granados's office. They will fax labs and referral to [facility]. She will fax last office visit note once provider signs it. Patient will need to have a referral sent from that office. Dr. Granados is not a [facility] physician. Barb Malik LPN Patient called stating Dr. Granados referred him to hem/onc. No orders/referral listed. Please advise. 09/18/23 office visit shows visit diagnosis - Visit Diagnoses Tobacco abuse counseling Body mass index [BMI] 36.0-36.9, adult Athscl heart disease of [place] coronary artery w/o ang pctrs Chronic obstructive pulmonary disease, unspecified Vitamin D deficiency, unspecified Impaired fasting glucose Hyperlipidemia, unspecified Other thrombophilia Bee allergy status Hyperparathyroidism, unspecified Chronic diastolic (congestive) heart failure Abnormal radiologic findings on dx imaging of r kidney Hypercalcemia Nicotine dependence, cigarettes, w oth disorders Primary generalized (osteo)arthritis Bradycardia, unspecified Alcohol use, unsp with unspecified alcohol-induced disorder Other abnormality of red blood cells Essential (primary) hypertension Elevated white blood cell count, unspecified documented in this encounter [facility] 01-29-2024 Telephone encounter Note New Pt. Referral, pt. Contacted and informed he would rather be seen in [place] since it is closer to his home. Contacted Dr. Bethea office to have information sent to [facility] [place]. Bing Gregg LPN [facility] 01-28-2024 Telephone encounter Note Spoke with Dr. Granados's office. They will fax labs and referral to [facility]. She will fax last office visit note once provider signs it. [facility] Work Phone: 01-28-2024 Telephone encounter Note Patient will need to have a referral sent from that office. Dr. Granados is not a [facility] physician. Barb Malik LPN [facility] 01-28-2024 Telephone encounter Note Patient called stating Dr. Granados referred him to hem/onc. No orders/referral listed. Please advise. 09/18/23 office visit shows visit diagnosis - Visit Diagnoses Tobacco abuse counseling Body mass index [BMI] 36.0-36.9, adult Athscl heart disease of [place] coronary artery w/o ang pctrs Chronic obstructive pulmonary disease, unspecified Vitamin D deficiency, unspecified Impaired fasting glucose Hyperlipidemia, unspecified Other thrombophilia Bee allergy status Hyperparathyroidism, unspecified Chronic diastolic (congestive) heart failure Abnormal radiologic findings on dx imaging of r kidney Hypercalcemia Nicotine dependence, cigarettes, w oth disorders Primary generalized (osteo)arthritis Bradycardia, unspecified Alcohol use, unsp with unspecified alcohol-induced disorder Other abnormality of red blood cells Essential (primary) hypertension Elevated white blood cell count, unspecified [facility] 09-11-2023 Note HNO ID: [id number] Author: DAVID ALEXANDER PT Service: ? Author Type: Physical Therapist Type: Progress Notes Filed: 09/11/2023 15:55 Note Text: 09/11/2023 [facility] REHABILITATION AND SPORTS THERAPY PHYSICAL THERAPY DISCONTINUANCE OF CARE Plan of Care Period: Start of Care Date: 07/06/23 Last Visit Date: 08/06/2023 Therapy Program: The following is a summary of the interventions provided for this episode of care; Therapeutic exercise, Manual therapy, Self-mcfp management, and Patient/Family/Caregiver Education Assessment: The following is the goal status: Goals for Episode of Care: created on 06/29/23 (Reverse L TSA with bicep tenodesis) through 10/04/23 [place] in home exercise program. Patient will decrease pain rating by 2 points to meet minimal clinical important difference for numeric pain rating scale. Patient will increase active ROM of left shoulder to equal right to allow pt to to improve postural alignment and to improve performance of ADLs. Patient will demonstrate increase in left UE strength to 5/5 during manual muscle testing in order to improve function for prior functional tasks. Patient will increase flexibility of left UE to WNL to improve ability to maintain proper posture, improve mechanics, and decrease pain. Improve postural awareness. Based on the most recent progress report, patient was progressing as expected toward functional goals based on home exercise program compliance, pain levels, documented subjective information on progress, and documented objective information regarding ADL's, independence in exercise, overall function, range of motion, and strength. Reason for Discontinuation of Care: Patient has not returned to therapy or scheduled additional follow-up appointments. David Alexander, PT [facility] 08-10-2023 Note HNO ID: [id number] Author: Shaun Delacruz MD Service: ? Author Type: Physician Type: Progress Notes Filed: 08/10/2023 2:42 PM Note Text: PAIN EVALUATION 08/10/2023 1422 Pain Level: 3 Pain Location: Shoulder-Left Description: Stiffness Intervention/Comfort measure: Exercise Comments: PT currently Matteo Thompson returns to follow-up 6 weeks following reverse arthroplasty. Pain has been improving steadily and range of motion also improving with light use at home and with physical therapy. On exam there is improvement in overhead and rotational range of motion. Pain is minimal throughout the exam today. There is no catching or grinding of the shoulder. There is no tenderness to palpation over the scapular spine or acromion. Active forward elevation is 140 and external rotation is 30. There is some difficulty with rotation behind the back. AP, outlet, axillary views of the shoulder reviewed in the office today demonstrate unchanged alignment of reverse arthroplasty components without evidence of fracture or any loosening of the implants. Today we discussed progress 6 weeks following surgery. Progress has been good in the shoulder may be used for all activities as tolerated within limits of pain. Recommended continuing physical therapy and return to see me again in 6 weeks with repeat x-rays and clinical exam. Shaun Delacruz MD Shoulder AND Elbow Surgeon Department of Orthopaedic Surgery [facility] 08-10-2023 History of Presen t illness Narrative PAIN EVALUATION 08/10/2023 1422 Pain Level: 3 Pain Location: Shoulder-Left Description: Stiffness Intervention/Comfort measure: Exercise Comments: PT currently Matteo Thompson returns to follow-up 6 weeks following reverse arthroplasty. Pain has been improving steadily and range of motion also improving with light use at home and with physical therapy. On exam there is improvement in overhead and rotational range of motion. Pain is minimal throughout the exam today. There is no catching or grinding of the shoulder. There is no tenderness to palpation over the scapular spine or acromion. Active forward elevation is 140 and external rotation is 30. There is some difficulty with rotation behind the back. AP, outlet, axillary views of the shoulder reviewed in the office today demonstrate unchanged alignment of reverse arthroplasty components without evidence of fracture or any loosening of the implants. Today we discussed progress 6 weeks following surgery. Progress has been good in the shoulder may be used for all activities as tolerated within limits of pain. Recommended continuing physical therapy and return to see me again in 6 weeks with repeat x-rays and clinical exam. Shaun Delacruz MD Shoulder & Elbow Surgeon Department of Orthopaedic Surgery [facility] documented in this encounter [facility] 08-10-2023 History of Presen t illness Narrative Radiology Service Progress Note PATIENT NAME: Matteo Thompson DATE OF SERVICE: August 10, 2023 TIME: 2:04 PM PATIENT IDENTITY VERIFICATION COMPLETED USING TWO (2) IDENTIFIERS: Name and Date of confirmed by patient verbally. FALL SCREENING: Has the patient had 2 falls in the last year or 1 fall with injury or currently using an Ambulatory Assistive Device (Walker, Cane, Wheelchair, Crutches, etc.)? No PATIENT GENDER DATA: Male PATIENT RELEVANT IMPLANT DATA REVIEWED: Not Applicable RADIOLOGY DEPARTMENT: General X-ray: Exam(s) Completed: Upper Extremity X-Ray(s): Shoulder,TRUE AP / AXILLARY / SUPRA OUTLET left PERIPHERAL IV DATA: Not applicable SIGNED BY: Naveen Dhillon August 10, 2023 2:04 PM documented in this encounter [facility] 08-10-2023 Note HNO ID: [id number] Author: Eliz Roy Tech Service: ? Author Type: Marriage And Family Social Worker Type: Progress Notes Filed: 08/10/2023 2:04 PM Note Text: Radiology Service Progress Note PATIENT NAME: Matteo Thompson DATE OF SERVICE: August 10, 2023 TIME: 2:04 PM PATIENT IDENTITY VERIFICATION COMPLETED USING TWO (2) IDENTIFIERS: Name and Date of confirmed by patient verbally. FALL SCREENING: Has the patient had 2 falls in the last year or 1 fall with injury or currently using an Ambulatory Assistive Device (Walker, Cane, Wheelchair, Crutches, etc.)? No PATIENT GENDER DATA: Male PATIENT RELEVANT IMPLANT DATA REVIEWED: Not Applicable RADIOLOGY DEPARTMENT: General X-ray: Exam(s) Completed: Upper Extremity X-Ray(s): Shoulder,TRUE AP / AXILLARY / SUPRA OUTLET left PERIPHERAL IV DATA: Not applicable SIGNED BY: Naveen Dhillon August 10, 2023 2:04 PM [facility] 08-06-2023 Note HNO ID: [id number] Author: David Alexander, PT Service: ? Author Type: Physical Therapist Type: Progress Notes Filed: 08/06/2023 4:25 PM Note Text: Episode Visit Count: 6 Therapist That Will Accept/Oversee The Plan Of Care: Nilo Alexander Start of Care Date: 07/06/23 Onset Date: 06/29/23 (DOS) Plan of Care Certification Date: 07/06/23 Next Certification Due Date: 10/04/23 Current Surgical Procedure : L reverse TSA Current Surgical Procedure Date: 06/29/23 REHABILITATION AND SPORTS THERAPY PHYSICAL THERAPY PROGRESS REPORT PLAN OF CARE UPDATE: Assessment: Matteo Thompson demonstrates improvements in physical activities, reaching behind back, reaching overhead, use hand with arm at shoulder level, dressing, pulling, pushing, and carrying. He has progressed toward goals. Patient continues to present with impairments in ADL's, independence in exercise, joint mobility, overall function, range of motion, strength, and symptom management that interfere with physical activities, recreational activities, reaching behind back, reaching overhead . Current prognosis is Good due to: current objective clinical presentation, good overall health status, acuteness of condition, positive past response to therapy, within-session changes, good support system/ coping skills . Pt presents 5 weeks s/p L rTSA doing well with minimal pain, good ROM AND strength and good motivation. He will benefit from continued skilled therapy services to meet the updated goals for this plan of care as noted below. Goals for Episode of Care: created on 06/29/23 (Reverse L TSA with bicep tenodesis) through 10/04/23 [place] in home exercise program. Patient will decrease pain rating by 2 points to meet minimal clinical important difference for numeric pain rating scale. Patient will increase active ROM of left shoulder to equal right to allow pt to to improve postural alignment and to improve performance of ADLs. Patient will demonstrate increase in left UE strength to 5/5 during manual muscle testing in order to improve function for prior functional tasks. Patient will increase flexibility of left UE to WNL to improve ability to maintain proper posture, improve mechanics, and decrease pain. Improve postural awareness. Planned Interventions, Frequency, and Duration: 1x/week, Patient to be seen for Therapeutic exercise (92226), Neuromuscular re-education (43765), Manual therapy (89918), Therapeutic activities (35508), Self-mcfp management (68614), Patient/Family/Caregiver Education PLAN FOR NEXT VISIT: continue to progress L shoulder ROM AND strength for improved ADLs SUBJECTIVE: shoulder is doing ok but would like to be doing better. reports overall improvement since surgery with less pain but still limited by post-op pain AND stiffness. Has f/u with surgeon this Sunday. Functional Limitations: physical activities, recreational activities, reaching behind back, reaching overhead Pain: Pain Pain Level: 2 Pain Location: Shoulder - Left Description: Aching, Dull Frequency: Intermittent PROMIS Scales Higher is Better 08/06/2023 07/05/2023 Phys Func - Score 41 (mild dysfunction) 30 (moderate dysfunction) Phys Func - Percentile 18% 2% Self-Eff Symptom - Score 46 (Average) 46 (Average) Self-Eff Symptom - Percentile 34% 34% T-scores: mean of general population = 50. 5 points is clinically meaningfully difference Percentiles provide an indication of how the patient's score ranks in relation to the general population. Higher percentile rankings indicate better function/quality of life. 50th percentile is the average of the general population and indicates half of respondents had a worse score. OBJECTIVE MEASURES WITH LEVEL OF FUNCTION: Shoulder Observations Swelling: minimal/much improved Incision: closed AND healed UE AROM L UE AROM: L shoulder limited by tightness/stiffness as noted below L Shoulder Flex: 145 Degrees L Shoulder ABduction: 150 Degrees L Shoulder Internal Rotation (Functional): L2 L Shoulder External Rotation: 45 Degrees L Shoulder External Rotation (Functional): C5 UE PROM L Shoulder Flex: 155 Degrees L Shoulder Internal Rotation: 50 Degrees UE and Cervical Strength L Shoulder Flexion: 4+/5 L Shoulder Abduction (C5): 4+/5 L Shoulder Internal Rotation: 4-/5 L Shoulder External Rotation: 4+/5 L Middle Trapezius: 4-/5 L Lower Trapezius: 4-/5 L Elbow Flexion (C6): 5/5 TREATMENT: Therapeutic Exercise: 1: UBE L2x6' L UE only 2: standing shoulder AAROM with cane IR, FE, Abd, ER 10xeaL 3: prone shoulder IR 2#10xL 4: prone horiz Abd 2#L15x 5: prone shoulder ext 2#L 15x 6: supine shoulder ER AAROM/stretch with cane 10x 7: recheck - see objective for details, discussed progress AND deficits, plans/options for tester wafer substrate Intervention: Patient was educated in proper exercise technique and purpose for exercises. Skilled judgment was used i (more content not included)... [facility] 08-06-2023 History of Presen t illness Narrative Episode Visit Count: 6 Therapist That Will Accept/Oversee The Plan Of Care: Nilo Alexander Start of Care Date: 07/06/23 Onset Date: 06/29/23 (DOS) Plan of Care Certification Date: 07/06/23 Next Certification Due Date: 10/04/23 Current Surgical Procedure : L reverse TSA Current Surgical Procedure Date: 06/29/23 REHABILITATION AND SPORTS THERAPY PHYSICAL THERAPY PROGRESS REPORT PLAN OF CARE UPDATE: Assessment: Matteo Thompson demonstrates improvements in physical activities, reaching behind back, reaching overhead, use hand with arm at shoulder level, dressing, pulling, pushing, and carrying. He has progressed toward goals. Patient continues to present with impairments in ADL's, independence in exercise, joint mobility, overall function, range of motion, strength, and symptom management that interfere with physical activities, recreational activities, reaching behind back, reaching overhead . Current prognosis is Good due to: current objective clinical presentation, good overall health status, acuteness of condition, positive past response to therapy, within-session changes, good support system/ coping skills . Pt presents 5 weeks s/p L rTSA doing well with minimal pain, good ROM & strength and good motivation. He will benefit from continued skilled therapy services to meet the updated goals for this plan of care as noted below. Goals for Episode of Care: created on 06/29/23 (Reverse L TSA with bicep tenodesis) through 10/04/23 [place] in home exercise program. Patient will decrease pain rating by 2 points to meet minimal clinical important difference for numeric pain rating scale. Patient will increase active ROM of left shoulder to equal right to allow pt to to improve postural alignment and to improve performance of ADLs. Patient will demonstrate increase in left UE strength to 5/5 during manual muscle testing in order to improve function for prior functional tasks. Patient will increase flexibility of left UE to WNL to improve ability to maintain proper posture, improve mechanics, and decrease pain. Improve postural awareness. Planned Interventions, Frequency, and Duration: 1x/week, Patient to be seen for Therapeutic exercise (82321), Neuromuscular re-education (78846), Manual therapy (73717), Therapeutic activities (82242), Self-mcfp management (13431), Patient/Family/Caregiver Education PLAN FOR NEXT VISIT: continue to progress L shoulder ROM & strength for improved ADLs SUBJECTIVE: shoulder is doing ok but would like to be doing better. reports overall improvement since surgery with less pain but still limited by post-op pain & stiffness. Has f/u with surgeon this Sunday. Functional Limitations: physical activities, recreational activities, reaching behind back, reaching overhead Pain: Pain Pain Level: 2 Pain Location: Shoulder - Left Description: Aching, Dull Frequency: Intermittent PROMIS Scales Higher is Better 08/06/2023 07/05/2023 Phys Func - Score 41 (mild dysfunction) 30 (moderate dysfunction) Phys Func - Percentile 18% 2% Self-Eff Symptom - Score 46 (Average) 46 (Average) Self-Eff Symptom - Percentile 34% 34% T-scores: mean of general population = 50. 5 points is clinically meaningfully difference Percentiles provide an indication of how the patient's score ranks in relation to the general population. Higher percentile rankings indicate better function/quality of life. 50th percentile is the average of the general population and indicates half of respondents had a worse score. OBJECTIVE MEASURES WITH LEVEL OF FUNCTION: Shoulder Observations Swelling: minimal/much improved Incision: closed & healed UE AROM L UE AROM: L shoulder limited by tightness/stiffness as noted below L Shoulder Flex: 145 Degrees L Shoulder ABduction: 150 Degrees L Shoulder Internal Rotation (Functional): L2 L Shoulder External Rotation: 45 Degrees L Shoulder External Rotation (Functional): C5 UE PROM L Shoulder Flex: 155 Degrees L Shoulder Internal Rotation: 50 Degrees UE and Cervical Strength L Shoulder Flexion: 4+/5 L Shoulder Abduction (C5): 4+/5 L Shoulder Internal Rotation: 4-/5 L Shoulder External Rotation: 4+/5 L Middle Trapezius: 4-/5 L Lower Trapezius: 4-/5 L Elbow Flexion (C6): 5/5 TREATMENT: Therapeutic Exercise: 1: UBE L2x6' L UE only 2: standing shoulder AAROM with cane IR, FE, Abd, ER 10xeaL 3: prone shoulder IR 2#10xL 4: prone horiz Abd 2#L15x 5: prone shoulder ext 2#L 15x 6: supine shoulder ER AAROM/stretch with cane 10x 7: recheck - see objective for details, discussed progress & deficits, plans/options for tester wafer substrate Intervention: Patient was educated in proper exercise technique and purpose for exercises. Skilled judgment was used in selection of appropriate interventions. Correct performance of therapeutic exercises was facilitated with verbal and visual cuing. Educated patient on rationale for performing exercises in regards to increase ease of ADL and ROM and function . Patient education as noted. PT in constant attendance during use of UBE to review current status, monitor effort throughout activity and adjust set up as needed for maximum therapeutic benefit. Manual Therapy: 1: supine shoulder PROM FE & ER 2: supine subscap release/STM Skilled Intervention: Manual skills to improve joint mobility, ROM, and decrease pain. Utilized anatomy knowledge of the therapist, and assessment of patient's response to intervention. Billing Therapeutic Exercise Treatment Minutes: 40 Manual TherapyTreatment Minutes: 5 Skilled Treatment Time Minutes (timed and untimed codes): 45 Total Session Time (minutes): 45 Session Start Time : 1250 Session Stop Time : 1335 David Alexander PT documented in this encounter [facility] 07-30-2023 Note HNO ID: [id number] Author: David Alexander PT Service: ? Author Type: Physical Therapist Type: Progress Notes Filed: 07/30/2023 10:06 AM Note Text: Episode Visit Count: 5 Therapist That Will Accept/Oversee The Plan Of Care: Nilo Alexander Start of Care Date: 07/06/23 Onset Date: 06/29/23 (DOS) Plan of Care Certification Date: 07/06/23 Next Certification Due Date: 10/04/23 REHABILITATION AND SPORTS THERAPY PHYSICAL THERAPY TREATMENT NOTE ASSESSMENT: Matteo Thompson tolerated the session with no issues. He demonstrated improvements in L shoulder ROM AND fxl use of L UE. The patient will continue to benefit from ongoing skilled physical therapy to progress toward set goals. PLAN FOR NEXT VISIT: Recheck. continue to progress L shoulder ROM AND strength, address ER ROM/tightness SUBJECTIVE: doing good. says L shoulder is getting a little better every day. reports less pain than before surgery Pain: Pain Pain Level: 3 Pain Location: Shoulder - Left OBJECTIVE MEASURES WITH LEVEL OF FUNCTION: UE AROM L Shoulder Internal Rotation (Functional): L3 TREATMENT: Therapeutic Exercise: 1: UBE L2x5' - 1' B UE/3' L UE only 2: standing shoulder AAROM with cane ER, Abd, FE 15-20xeaL 3: standing shoulder IR/ER with green TB 20xeaL 4: standing MT AND LT rows with blue TB 20xeaB 5: standing shoulder flexion 3#B 15x 6: standing shoulder Abd 3#B 8x 7: standing UT stretch 8: supine horiz ABd/pec stretch Skilled Intervention: Patient was educated in proper exercise technique and purpose for exercises. Skilled judgment was used in selection of appropriate interventions. Correct performance of therapeutic exercises was facilitated with verbal, visual, and tactile cuing. Educated patient on rationale for performing exercises in regards to increase ease of ADL and ROM and function. Patient education as noted. PT in constant attendance during use of UBE to review current status, monitor effort throughout activity and adjust set up as needed for maximum therapeutic benefit. Manual Therapy: 1: scar tissue massage Skilled Intervention: Manual skills to improve joint mobility, ROM, and decrease pain. Utilized anatomy knowledge of the therapist, and assessment of patient's response to intervention. Billing Therapeutic Exercise Treatment Minutes: 37 Manual TherapyTreatment Minutes: 5 Skilled Treatment Time Minutes (timed and untimed codes): 42 Total Session Time (minutes): 42 Session Start Time : 833 Session Stop Time : 915 David Alexander, PT [facility] 07-30-2023 History of Presen t illness Narrative Episode Visit Count: 5 Therapist That Will Accept/Oversee The Plan Of Care: Nilo Alexander Start of Care Date: 07/06/23 Onset Date: 06/29/23 (DOS) Plan of Care Certification Date: 07/06/23 Next Certification Due Date: 10/04/23 REHABILITATION AND SPORTS THERAPY PHYSICAL THERAPY TREATMENT NOTE ASSESSMENT: Matteo Thompson tolerated the session with no issues. He demonstrated improvements in L shoulder ROM & fxl use of L UE. The patient will continue to benefit from ongoing skilled physical therapy to progress toward set goals. PLAN FOR NEXT VISIT: Recheck. continue to progress L shoulder ROM & strength, address ER ROM/tightness SUBJECTIVE: doing good. says L shoulder is getting a little better every day. reports less pain than before surgery Pain: Pain Pain Level: 3 Pain Location: Shoulder - Left OBJECTIVE MEASURES WITH LEVEL OF FUNCTION: UE AROM L Shoulder Internal Rotation (Functional): L3 TREATMENT: Therapeutic Exercise: 1: UBE L2x5' - 1' B UE/3' L UE only 2: standing shoulder AAROM with cane ER, Abd, FE 15-20xeaL 3: standing shoulder IR/ER with green TB 20xeaL 4: standing MT & LT rows with blue TB 20xeaB 5: standing shoulder flexion 3#B 15x 6: standing shoulder Abd 3#B 8x 7: standing UT stretch 8: supine horiz ABd/pec stretch Skilled Intervention: Patient was educated in proper exercise technique and purpose for exercises. Skilled judgment was used in selection of appropriate interventions. Correct performance of therapeutic exercises was facilitated with verbal, visual, and tactile cuing. Educated patient on rationale for performing exercises in regards to increase ease of ADL and ROM and function. Patient education as noted. PT in constant attendance during use of UBE to review current status, monitor effort throughout activity and adjust set up as needed for maximum therapeutic benefit. Manual Therapy: 1: scar tissue massage Skilled Intervention: Manual skills to improve joint mobility, ROM, and decrease pain. Utilized anatomy knowledge of the therapist, and assessment of patient's response to intervention. Billing Therapeutic Exercise Treatment Minutes: 37 Manual TherapyTreatment Minutes: 5 Skilled Treatment Time Minutes (timed and untimed codes): 42 Total Session Time (minutes): 42 Session Start Time : 833 Session Stop Time : 915 David Alexander PT documented in this encounter [facility] 07-23-2023 Note HNO ID: [id number] Author: David Alexander PT Service: ? Author Type: Physical Therapist Type: Progress Notes Filed: 07/23/2023 9:32 AM Note Text: Episode Visit Count: 4 Therapist That Will Accept/Oversee The Plan Of Care: Nilo Alexander Start of Care Date: 07/06/23 Onset Date: 06/29/23 (DOS) Plan of Care Certification Date: 07/06/23 Next Certification Due Date: 10/04/23 REHABILITATION AND SPORTS THERAPY PHYSICAL THERAPY TREATMENT NOTE ASSESSMENT: Matteo Thompson tolerated the session with no issues. He demonstrated improvements in shoulder ROM and improved fxl use of L UE. The patient will continue to benefit from ongoing skilled physical therapy to progress toward set goals and to continue with post-operative protocol. PLAN FOR NEXT VISIT: continue to progress L shoulder ROM AND strength SUBJECTIVE: doing ok. says shoulder is getting better every day. still has swelling t/o L UE. takes blood thinner for other issues. Pt has been stretching L shoulder at home and using a piece of firewood for some strengthening exercises (bicep curls). Pain: Pain Pain Level: 3 Pain Location: Shoulder - Left Description: Aching, Dull Frequency: Intermittent OBJECTIVE MEASURES WITH LEVEL OF FUNCTION: Shoulder Observations Swelling: L UE pitting edema noted after TB exercises UE AROM L Shoulder Flex: 140 Degrees L Shoulder ABduction: 145 Degrees L Shoulder Internal Rotation (Functional): L buttock L Shoulder External Rotation: 40 Degrees L Shoulder External Rotation (Functional): C5 UE PROM L Shoulder Flex: 150 Degrees L Shoulder External Rotation: 50 Degrees UE and Cervical Strength R UE Strength: grossly 5/5 L UE Strength: L shoulder AND elbow grossly 4 to 4+/5 L Shoulder Flexion: 4+/5 L Shoulder Abduction (C5): 4/5 L Shoulder Internal Rotation: 4-/5 L Shoulder External Rotation: 4/5 L Middle Trapezius: 4/5 L Elbow Extension (C7): 4+/5 TREATMENT: Therapeutic Exercise: 1: UBE L2x5' - 2' B UE/3' L UE only 2: supine AAROM with cane ER AND FE 10xea 3: seated/standing AAROM with cane ER AND Abd 10xea 4: wall wash FE 10x 5: advised elevation AND distal UE ROM (wrist pumps AND gripping) for edema control 6: standing IR AAROM with towel 10x 7: seatted shoulder flexion 3# 15xL 8: seated shoulder ABd 2# 15xL 9: standing shoulder IR AND ER with green TB 15xeaL Skilled Intervention: Patient was educated in proper exercise technique and purpose for exercises. Skilled judgment was used in selection of appropriate interventions. Correct performance of therapeutic exercises was facilitated with verbal and visual cuing. Educated patient on rationale for performing exercises in regards to increase ease of ADL, increase lymphatic fluid dynamics, and ROM and function. Patient education as noted. PT in constant attendance during use of UBE to review current status, monitor effort throughout activity and adjust set up as needed for maximum therapeutic benefit. Billing Therapeutic Exercise Treatment Minutes: 54 Skilled Treatment Time Minutes (timed and untimed codes): 54 Total Session Time (minutes): 54 Session Start Time : 826 Session Stop Time : 920 David Alexander, PT [facility] 07-23-2023 History of Presen t illness Narrative Episode Visit Count: 4 Therapist That Will Accept/Oversee The Plan Of Care: Nilo Alexander Start of Care Date: 07/06/23 Onset Date: 06/29/23 (DOS) Plan of Care Certification Date: 07/06/23 Next Certification Due Date: 10/04/23 REHABILITATION AND SPORTS THERAPY PHYSICAL THERAPY TREATMENT NOTE ASSESSMENT: Matteo Thompson tolerated the session with no issues. He demonstrated improvements in shoulder ROM and improved fxl use of L UE. The patient will continue to benefit from ongoing skilled physical therapy to progress toward set goals and to continue with post-operative protocol. PLAN FOR NEXT VISIT: continue to progress L shoulder ROM & strength SUBJECTIVE: doing ok. says shoulder is getting better every day. still has swelling t/o L UE. takes blood thinner for other issues. Pt has been stretching L shoulder at home and using a piece of firewood for some strengthening exercises (bicep curls). Pain: Pain Pain Level: 3 Pain Location: Shoulder - Left Description: Aching, Dull Frequency: Intermittent OBJECTIVE MEASURES WITH LEVEL OF FUNCTION: Shoulder Observations Swelling: L UE pitting edema noted after TB exercises UE AROM L Shoulder Flex: 140 Degrees L Shoulder ABduction: 145 Degrees L Shoulder Internal Rotation (Functional): L buttock L Shoulder External Rotation: 40 Degrees L Shoulder External Rotation (Functional): C5 UE PROM L Shoulder Flex: 150 Degrees L Shoulder External Rotation: 50 Degrees UE and Cervical Strength R UE Strength: grossly 5/5 L UE Strength: L shoulder & elbow grossly 4 to 4+/5 L Shoulder Flexion: 4+/5 L Shoulder Abduction (C5): 4/5 L Shoulder Internal Rotation: 4-/5 L Shoulder External Rotation: 4/5 L Middle Trapezius: 4/5 L Elbow Extension (C7): 4+/5 TREATMENT: Therapeutic Exercise: 1: UBE L2x5' - 2' B UE/3' L UE only 2: supine AAROM with cane ER & FE 10xea 3: seated/standing AAROM with cane ER & Abd 10xea 4: wall wash FE 10x 5: advised elevation & distal UE ROM (wrist pumps & gripping) for edema control 6: standing IR AAROM with towel 10x 7: seatted shoulder flexion 3# 15xL 8: seated shoulder ABd 2# 15xL 9: standing shoulder IR & ER with green TB 15xeaL Skilled Intervention: Patient was educated in proper exercise technique and purpose for exercises. Skilled judgment was used in selection of appropriate interventions. Correct performance of therapeutic exercises was facilitated with verbal and visual cuing. Educated patient on rationale for performing exercises in regards to increase ease of ADL, increase lymphatic fluid dynamics, and ROM and function. Patient education as noted. PT in constant attendance during use of UBE to review current status, monitor effort throughout activity and adjust set up as needed for maximum therapeutic benefit. Billing Therapeutic Exercise Treatment Minutes: 54 Skilled Treatment Time Minutes (timed and untimed codes): 54 Total Session Time (minutes): 54 Session Start Time : 826 Session Stop Time : 920 David Alexander PT documented in this encounter [facility] 07-16-2023 Note HNO ID: [id number] Author: David Alexander PT Service: ? Author Type: Physical Therapist Type: Progress Notes Filed: 07/17/2023 8:04 AM Note Text: Episode Visit Count: 3 Therapist That Will Accept/Oversee The Plan Of Care: Nilo Alexander Start of Care Date: 06/29/23 (Reverse L TSA with bicep tenodesis) Onset Date: 07/06/23 Plan of Care Certification Date: 07/06/23 Next Certification Due Date: 10/04/23 REHABILITATION AND SPORTS THERAPY PHYSICAL THERAPY TREATMENT NOTE ASSESSMENT: Matteo Thompson tolerated the session with expected pain AND muscle soreness. He demonstrated difficulty with post-op shoulder pain, bruising AND swelling and improvements in shoulder ROM and ADLs. The patient will continue to benefit from ongoing skilled physical therapy to progress toward set goals and to continue with post-operative protocol. PLAN FOR NEXT VISIT: continue to progress L shoulder ROM as tolerated, assess/address strength next session SUBJECTIVE: shoulder is a little sore today after carrying some wood. took a pain pill. had f/u with ortho/PA on Sunday which went well. next f/u in 1 month. still uses ice 2-3x/day. also c/o pain/soreness in forearm Pain: Pain Pain Level: 4 Pain Location: Shoulder - Left Description: Aching, Sore Frequency: Intermittent Post Treatment Pain Post Treatment Pain Level: Better OBJECTIVE MEASURES WITH LEVEL OF FUNCTION: Shoulder Observations Incision: closed AND healing well [employer]ODUCTION [employer] (surgical glue evident) L Shoulder Palpation Tenderness: Comments L Shoulder Palpation Tenderness Comments: forearm swelling, tightness AND STR UE AROM L Shoulder Flex: 130 Degrees L Shoulder ABduction: 140 Degrees TREATMENT: Therapeutic Exercise: 1: UBE L1x5' B UEs 2: seated elbow flexion AND extension, supination AND pronation 10xea 3: seated shoulder ER AAROM with cane 10x 4: standing shoulder AAROM with cane FE AND Abd 10xea 5: *wrist flexor stretching 6: standing IR AAROM with towel 10x 7: seated/standing shoulder AROM all planes Skilled Intervention: Patient was educated in proper exercise technique and purpose for exercises. Reviewed and educated patient on additions/changes for home exercise program as above (*). Skilled judgment was used in selection of appropriate interventions. Correct performance of therapeutic exercises was facilitated with verbal, visual, and tactile cuing. Education in use of heat and ice and parameters for each. Educated patient on rationale for performing exercises in regards to increase ease of ADL, increase lymphatic fluid dynamics, and ROM and function. Patient education as noted. PT in constant attendance during use of UBE to review current status, monitor effort throughout activity and adjust set up as needed for maximum therapeutic benefit. Manual Therapy: 1: STM to L forearm in supine f/b wrist flexor stretch Skilled Intervention: Manual skills to improve joint mobility, ROM, and decrease pain. Utilized anatomy knowledge of the therapist, and assessment of patient's response to intervention. Billing Therapeutic Exercise Treatment Minutes: 35 Manual TherapyTreatment Minutes: 5 Skilled Treatment Time Minutes (timed and untimed codes): 40 Total Session Time (minutes): 40 Session Start Time : 1550 Session Stop Time : 1630 David Alexander, PT [facility] 07-16-2023 History of Presen t illness Narrative Episode Visit Count: 3 Therapist That Will Accept/Oversee The Plan Of Care: Nilo Alexander Start of Care Date: 06/29/23 (Reverse L TSA with bicep tenodesis) Onset Date: 07/06/23 Plan of Care Certification Date: 07/06/23 Next Certification Due Date: 10/04/23 REHABILITATION AND SPORTS THERAPY PHYSICAL THERAPY TREATMENT NOTE ASSESSMENT: Matteo Thompson tolerated the session with expected pain & muscle soreness. He demonstrated difficulty with post-op shoulder pain, bruising & swelling and improvements in shoulder ROM and ADLs. The patient will continue to benefit from ongoing skilled physical therapy to progress toward set goals and to continue with post-operative protocol. PLAN FOR NEXT VISIT: continue to progress L shoulder ROM as tolerated, assess/address strength next session SUBJECTIVE: shoulder is a little sore today after carrying some wood. took a pain pill. had f/u with ortho/PA on Sunday which went well. next f/u in 1 month. still uses ice 2-3x/day. also c/o pain/soreness in forearm Pain: Pain Pain Level: 4 Pain Location: Shoulder - Left Description: Aching, Sore Frequency: Intermittent Post Treatment Pain Post Treatment Pain Level: Better OBJECTIVE MEASURES WITH LEVEL OF FUNCTION: Shoulder Observations Incision: closed & healing well VERNELL (surgical glue evident) L Shoulder Palpation Tenderness: Comments L Shoulder Palpation Tenderness Comments: forearm swelling, tightness & STR UE AROM L Shoulder Flex: 130 Degrees L Shoulder ABduction: 140 Degrees TREATMENT: Therapeutic Exercise: 1: UBE L1x5' B UEs 2: seated elbow flexion & extension, supination & pronation 10xea 3: seated shoulder ER AAROM with cane 10x 4: standing shoulder AAROM with cane FE & Abd 10xea 5: *wrist flexor stretching 6: standing IR AAROM with towel 10x 7: seated/standing shoulder AROM all planes Skilled Intervention: Patient was educated in proper exercise technique and purpose for exercises. Reviewed and educated patient on additions/changes for home exercise program as above (*). Skilled judgment was used in selection of appropriate interventions. Correct performance of therapeutic exercises was facilitated with verbal, visual, and tactile cuing. Education in use of heat and ice and parameters for each. Educated patient on rationale for performing exercises in regards to increase ease of ADL, increase lymphatic fluid dynamics, and ROM and function. Patient education as noted. PT in constant attendance during use of UBE to review current status, monitor effort throughout activity and adjust set up as needed for maximum therapeutic benefit. Manual Therapy: 1: STM to L forearm in supine f/b wrist flexor stretch Skilled Intervention: Manual skills to improve joint mobility, ROM, and decrease pain. Utilized anatomy knowledge of the therapist, and assessment of patient's response to intervention. Billing Therapeutic Exercise Treatment Minutes: 35 Manual TherapyTreatment Minutes: 5 Skilled Treatment Time Minutes (timed and untimed codes): 40 Total Session Time (minutes): 40 Session Start Time : 1550 Session Stop Time : 1630 David Alexander PT documented in this encounter [facility] 07-13-2023 Note HNO ID: [id number] Author: Ida oBlton PA-C Service: ? Author Type: Physician Senior Biostatistician Type: Progress Notes Filed: 07/13/2023 11:09 AM Note Text: Ida Bolton PA-C Department of Orthopaedics July 13, 2023 SURGERY: Reverse total shoulder arthroplasty - left SUBJECTIVE: Patient returns to clinic now 2 weeks status post the above procedure. Pain has been controlled on pain medication. Patient has been out of the sling and using the arm for light activity as tolerates. Has been to PT. Exam: Well healed anterior incision. Active forward elevation to 100. Sensation intact to lateral deltoid. Strong deltoid contraction against resistance. Nontender along scapular spine or acromion. Imaging: I did order and interpret radiographs today, 3 views left shoulder. Reverse total shoulder arthroplasty intact without evidence of mechanical loosening or periprosthetic fracture. ASSESSMENT: S/p reverse total shoulder replacement, left SUMMARY/PLAN: Discussed progress now 2 weeks out from the above procedure. Continue with PT. Continue to use arm for activity as tolerates. No refills needed. Return to clinic in 4 weeks with repeat xrays of shoulder at that time. Ida Bolton PA-C [facility] 07-13-2023 History of Presen t illness Narrative Ida Bolton PA-C Department of Orthopaedics July 13, 2023 SURGERY: Reverse total shoulder arthroplasty - left SUBJECTIVE: Patient returns to clinic now 2 weeks status post the above procedure. Pain has been controlled on pain medication. Patient has been out of the sling and using the arm for light activity as tolerates. Has been to PT. Exam: Well healed anterior incision. Active forward elevation to 100. Sensation intact to lateral deltoid. Strong deltoid contraction against resistance. Nontender along scapular spine or acromion. Imaging: I did order and interpret radiographs today, 3 views left shoulder. Reverse total shoulder arthroplasty intact without evidence of mechanical loosening or periprosthetic fracture. ASSESSMENT: S/p reverse total shoulder replacement, left SUMMARY/PLAN: Discussed progress now 2 weeks out from the above procedure. Continue with PT. Continue to use arm for activity as tolerates. No refills needed. Return to clinic in 4 weeks with repeat xrays of shoulder at that time. Ida Bolton PA-C documented in this encounter [facility] 07-09-2023 Note HNO ID: [id number] Author: David Alexander PT Service: ? Author Type: Physical Therapist Type: Progress Notes Filed: 07/09/2023 3:15 PM Note Text: Episode Visit Count: 2 Therapist That Will Accept/Oversee The Plan Of Care: Nilo Alexander Start of Care Date: 06/29/23 (Reverse L TSA with bicep tenodesis) Onset Date: 07/06/23 Plan of Care Certification Date: 07/06/23 Next Certification Due Date: 10/04/23 REHABILITATION AND SPORTS THERAPY PHYSICAL THERAPY TREATMENT NOTE ASSESSMENT: Matteo Thompson tolerated the session with expected muscle soreness. He demonstrated improvements in L shoulder ROM and exercise tolerance. The patient will continue to benefit from ongoing skilled physical therapy to progress toward set goals and to continue with post-operative protocol. PLAN FOR NEXT VISIT: continue 2x/wk to progress L shoulder per protocol SUBJECTIVE: doing ok, says shoulder is slowly getting better. has f/u with surgeon on Sunday. reports L shoulder pain/issues for approx 1 yr. Pt c/o swelling AND bruising since surgery. Pain: Pain Pain Level: 5 Pain Location: Shoulder - Left Description: Aching, Sore Frequency: Intermittent, With movement Post Treatment Pain Post Treatment Pain Level: No Change OBJECTIVE MEASURES WITH LEVEL OF FUNCTION: Shoulder Observations L Shoulder Presents with: Swelling, Ecchymosis, Incision Ecchymosis: significant t/o L UE, chest wall AND side Incision: with silver dressing in place UE PROM L Shoulder Flex: 140 Degrees L Shoulder External Rotation: 25 Degrees TREATMENT: Therapeutic Exercise: 1: UBE L1x5' B UE 2: *IR AAROM with towel 10x 3: *seated overhead oscar FE AND Abd 15-20xea 4: *standing ER AAROM with cane 10x 5: seated B elbow AROM flexion AND extension 10x 6: supine AAROM with cane FE AND ER 10xea 7: standing UT stretch 8: standing shoulder ABd/deltoid isometrics 5x2 9: discussed/recommended ice AND elevation for edema control Skilled Intervention: Patient was educated in proper exercise technique and purpose for exercises. Reviewed and educated patient on additions/changes for home exercise program as above (*). Skilled judgment was used in selection of appropriate interventions. Correct performance of therapeutic exercises was facilitated with verbal and visual cuing. Education in use of ice and parameters for each. Educated patient on rationale for performing exercises in regards to increase ease of ADL and ROM and function. Patient education as noted. Billing Therapeutic Exercise Treatment Minutes: 39 Skilled Treatment Time Minutes (timed and untimed codes): 39 Total Session Time (minutes): 39 Session Start Time : 1420 Session Stop Time : 1459 David Alexander, PT [facility] 07-09-2023 Note HNO ID: [id number] Author: Amy Huynh RT(R) Service: ? Author Type: Technologist Type: Progress Notes Filed: 07/09/2023 1:48 PM Note Text: Radiology Service Progress Note PATIENT NAME: Matteo Thompson DATE OF SERVICE: July 09, 2023 TIME: 1:47 PM PATIENT IDENTITY VERIFICATION COMPLETED USING TWO (2) IDENTIFIERS: Name and Date of confirmed by patient verbally. FALL SCREENING: Has the patient had 2 falls in the last year or 1 fall with injury or currently using an Ambulatory Assistive Device (Walker, Cane, Wheelchair, Crutches, etc.)? No PATIENT GENDER DATA: Male PATIENT RELEVANT IMPLANT DATA REVIEWED: Not Applicable RADIOLOGY DEPARTMENT: General X-ray: Exam(s) Completed: Upper Extremity X-Ray(s): Shoulder, AP / TRUE AP / SUPRA OUTLET left PERIPHERAL IV DATA: Not applicable SIGNED BY: RT Marnie(R) July 09, 2023 1:47 PM [facility] 07-09-2023 History of Presen t illness Narrative Radiology Service Progress Note PATIENT NAME: Matteo Thompson DATE OF SERVICE: July 09, 2023 TIME: 1:47 PM PATIENT IDENTITY VERIFICATION COMPLETED USING TWO (2) IDENTIFIERS: Name and Date of confirmed by patient verbally. FALL SCREENING: Has the patient had 2 falls in the last year or 1 fall with injury or currently using an Ambulatory Assistive Device (Walker, Cane, Wheelchair, Crutches, etc.)? No PATIENT GENDER DATA: Male PATIENT RELEVANT IMPLANT DATA REVIEWED: Not Applicable RADIOLOGY DEPARTMENT: General X-ray: Exam(s) Completed: Upper Extremity X-Ray(s): Shoulder, AP / TRUE AP / SUPRA OUTLET left PERIPHERAL IV DATA: Not applicable SIGNED BY: RT Marnie(R) July 09, 2023 1:47 PM documented in this encounter [facility] 07-06-2023 History of Presen t illness Narrative Episode Visit Count: 1 Therapist That Will Accept/Oversee The Plan Of Care: Zulma Holbrook Start of Care Date: 06/29/23 (Reverse L TSA with bicep tenodesis) Onset Date: 07/06/23 Plan of Care Certification Date: 07/06/23 Next Certification Due Date: 10/04/23 Patient Identified by Name and Date of : Yes REHABILITATION AND SPORTS THERAPY PHYSICAL THERAPY EVALUATION PLAN OF CARE: Assessment: Matteo Thompson presents s/p Reverse L TSA with bicep tenodesis 06/29/23. He presents with impairments in flexibility, independence in exercise, overall function, posture, range of motion, soft tissue healing, strength, and symptom management. PROMIS (Patient-Reported Outcomes Measurement Information System) scores were reviewed and all domains identified as within normal limits. Prognosis for therapy is good. He will benefit from skilled therapy services to meet the goals established for this plan of care as noted below. Goals for Episode of Care: created on 06/29/23 (Reverse L TSA with bicep tenodesis) through 10/04/23 [place] in home exercise program. Patient will decrease pain rating by 2 points to meet minimal clinical important difference for numeric pain rating scale. Patient will increase active ROM of left shoulder to equal right to allow pt to to improve postural alignment and to improve performance of ADLs. Patient will demonstrate increase in left UE strength to 5/5 during manual muscle testing in order to improve function for prior functional tasks. Patient will increase flexibility of left UE to WNL to improve ability to maintain proper posture, improve mechanics, and decrease pain. Improve postural awareness. Planned Interventions, Frequency, and Duration: Current Frequency: (1-2 x per week pending progress) Duration: 12 weeks Total Number of Visits Planned: 20 Planned Treatment Interventions: Therapeutic exercise (19049), Neuromuscular re-education (03824), Manual therapy (74404), Therapeutic activities (79926), Self-mcfp management (63366), Patient/Family/Caregiver Education PLAN FOR NEXT VISIT: Follow Dr. Delacruz's protocol for reverse TSA with bicep tenodesis. Patient demonstrates good understanding of plan of care and treatment. The above goals and plan of care were discussed and agreed upon by patient/family. Transfer of Care Due To: Closer to Home Patient transferring care to: [place] SUBJECTIVE: Surgery 06/29/23. Intermittent sharp anterior shoulder pain. Pain otherwise 5/10. Weaned from sling after day 1. Pain primarily anterior. Goal to return to physical outdoor and indoor tasks. Chops wood, mows grass. Medical History: Stent cardiac-20 years Pain: see above Post Treatment Pain Post Treatment Symptoms: reports no increase in pain upon departure PROMIS Scales Higher is Better 07/05/2023 Phys Func - Score 30 (moderate dysfunction) Phys Func - Percentile 2 % Self-Eff Symptom - Score 46 (Average) Self-Eff Symptom - Percentile 34 % T-scores: mean of general population = 50. 5 points is clinically meaningfully difference Percentiles provide an indication of how the patient's score ranks in relation to the general population. Higher percentile rankings indicate better function/quality of life. 50th percentile is the average of the general population and indicates half of respondents had a worse score. OBJECTIVE MEASURES WITH LEVEL OF FUNCTION: Shoulder Observations R Shoulder Presents with: (notable bruising left upper arm to forearm, mild swelling) UE AROM R Shoulder Flex: 161 Degrees R Shoulder ABduction: 150 Degrees R Shoulder Internal Rotation: 55 Degrees R Shoulder Internal Rotation (Functional): 70 UE PROM L Shoulder Flex: 100 Degrees L Shoulder Internal Rotation: (to abdomen) L Shoulder External Rotation: 0 Degrees L Elbow Extension: 0 Degrees L Elbow Flexion: 142 Degrees UE and Cervical Strength Strength Tested: Shoulder All, Distal UE, Hand R Shoulder Flexion: 5/5 R Shoulder Abduction (C5): 5/5 R Shoulder Internal Rotation: 5/5 R Shoulder External Rotation: 5/5 R Elbow Extension (C7): 5/5 R Elbow Flexion (C6): 5/5 R Wrist Extension: 5/5 R Wrist Flexion: 5/5 Education: Education Learning/educational needs: Procedure / Surgery, Safety, Home exercise program, Plan of Care TREATMENT: PT Treatment Interventions: Therapeutic Exercise, Self-Retirement Management, Manual Therapy Evaluation Manual Therapy: 1: PROM shoulder flexion and ER with good tolerance Skilled Intervention: Manual skills to improve joint mobility, ROM, and decrease pain. Utilized anatomy knowledge of the therapist, and assessment of patient's response to intervention. Therapeutic Exercise: 1: *PROM-AAROM supine flexion with wand 10 x 5 sec 2: *gentle PROM-AAROM ER with UE on pillow, instruction not to push and only go to first stretch 3: *R Elbow flexion/extn, wrist flexion/extn AAROM 4: *scap pinch plane of body 10 x 5 sec 5: *gripping with blue foam 10 sec Skilled Intervention: Patient was educated in proper exercise technique and purpose for exercises. Skilled judgment was used in selection of appropriate interventions. Provided written instruction for home exercise program to facilitate proper performance and compliance. Correct performance of therapeutic exercises was facilitated with verbal and visual cuing. Self-Retirement Management: 1: eval findings, precautions, restrictions-phase appropriate, L reverse TSA with bicep tenodesis-process, icing and parameters Skilled Intervention: Skilled judgment in the selection of proper modification for activity of daily living/home management based on clinical presentation, deficits, and needs. Billing * Evaluation Low Complexity: 1 Unit Therapeutic Exercise Treatment Minutes: 10 Self-Care/Home Management Treatment Minutes: 5 Skilled Treatment Time Minutes (timed and untimed codes): 35 Total Session Time (minutes): 37 Session Start Time : 1022 Session Stop Time : 1059 Zulma Holbrook PT documented in this encounter [facility] 07-06-2023 Note HNO ID: [id number] Author: Zulma Holbrook PT Service: ? Author Type: Physical Therapist Type: Progress Notes Filed: 07/06/2023 11:04 AM Note Text: Episode Visit Count: 1 Therapist That Will Accept/Oversee The Plan Of Care: Zulma Holbrook Start of Care Date: 06/29/23 (Reverse L TSA with bicep tenodesis) Onset Date: 07/06/23 Plan of Care Certification Date: 07/06/23 Next Certification Due Date: 10/04/23 Patient Identified by Name and Date of : Yes [facility]ORTS THERAPY PHYSICAL THERAPY EVALUATION PLAN OF CARE: Assessment: Matteo Thompson presents s/p Reverse L TSA with bicep tenodesis 06/29/23. He presents with impairments in flexibility, independence in exercise, overall function, posture, range of motion, soft tissue healing, strength, and symptom management. PROMIS? (Patient-Reported Outcomes Measurement Information System) scores were reviewed and all domains identified as within normal limits. Prognosis for therapy is good. He will benefit from skilled therapy services to meet the goals established for this plan of care as noted below. Goals for Episode of Care: created on 06/29/23 (Reverse L TSA with bicep tenodesis) through 10/04/23 [place] in home exercise program. Patient will decrease pain rating by 2 points to meet minimal clinical important difference for numeric pain rating scale. Patient will increase active ROM of left shoulder to equal right to allow pt to to improve postural alignment and to improve performance of ADLs. Patient will demonstrate increase in left UE strength to 5/5 during manual muscle testing in order to improve function for prior functional tasks. Patient will increase flexibility of left UE to WNL to improve ability to maintain proper posture, improve mechanics, and decrease pain. Improve postural awareness. Planned Interventions, Frequency, and Duration: Current Frequency: (1-2 x per week pending progress) Duration: 12 weeks Total Number of Visits Planned: 20 Planned Treatment Interventions: Therapeutic exercise (46478), Neuromuscular re-education (36819), Manual therapy (24608), Therapeutic activities (43268), Self-mcfp management (08506), Patient/Family/Caregiver Education PLAN FOR NEXT VISIT: Follow Dr. Delacruz's protocol for reverse TSA with bicep tenodesis. Patient demonstrates good understanding of plan of care and treatment. The above goals and plan of care were discussed and agreed upon by patient/family. Transfer of Care Due To: Closer to Home Patient transferring care to: [place] SUBJECTIVE: Surgery 06/29/23. Intermittent sharp anterior shoulder pain. Pain otherwise 01/03. Weaned from sling after day 1. Pain primarily anterior. Goal to return to physical outdoor and indoor tasks. Chops wood, mows grass. Medical History: Stent cardiac-20 years Pain: see above Post Treatment Pain Post Treatment Symptoms: reports no increase in pain upon departure PROMIS Scales Higher is Better 07/05/2023 Phys Func - Score 30 (moderate dysfunction) Phys Func - Percentile 2 % Self-Eff Symptom - Score 46 (Average) Self-Eff Symptom - Percentile 34 % T-scores: mean of general population = 50. 5 points is clinically meaningfully difference Percentiles provide an indication of how the patient's score ranks in relation to the general population. Higher percentile rankings indicate better function/quality of life. 50th percentile is the average of the general population and indicates half of respondents had a worse score. OBJECTIVE MEASURES WITH LEVEL OF FUNCTION: Shoulder Observations R Shoulder Presents with: (notable bruising left upper arm to forearm, mild swelling) UE AROM R Shoulder Flex: 161 Degrees R Shoulder ABduction: 150 Degrees R Shoulder Internal Rotation: 55 Degrees R Shoulder Internal Rotation (Functional): 70 UE PROM L Shoulder Flex: 100 Degrees L Shoulder Internal Rotation: (to abdomen) L Shoulder External Rotation: 0 Degrees L Elbow Extension: 0 Degrees L Elbow Flexion: 142 Degrees UE and Cervical Strength Strength Tested: Shoulder All, Distal UE, Hand R Shoulder Flexion: 5/5 R Shoulder Abduction (C5): 5/5 R Shoulder Internal Rotation: 5/5 R Shoulder External Rotation: 5/5 R Elbow Extension (C7): 5/5 R Elbow Flexion (C6): 5/5 R Wrist Extension: 12/29 R Wrist Flexion: 12/29 Education: Education Learning/educational needs: Procedure / Surgery, Safety, Home exercise program, Plan of Care TREATMENT: PT Treatment Interventions: Therapeutic Exercise, Self-Retirement Management, Manual Therapy Evaluation Manual Therapy: 1: PROM shoulder flexion and ER with good tolerance Skilled Intervention: Manual skills to improve joint mobility, ROM, and decrease pain. Utilized anatomy knowledge of the therapist, and assessment of patient's response to intervention. Therapeutic Exercise: 1: *PROM-AAROM supine flexion with wand 10 x 5 sec 2: *gentle PROM-A (more content not included)... [facility] 06-29-2023 Note HNO ID: [id number] Author: Scar Merritt APRN.CRNA Service: Anesthesiology Author Type: Nurse Speed Winder Type: Anesthesia Procedure Notes Filed: 06/29/2023 8:04 AM Note Text: ANESTHESIOLOGY PROCEDURE NOTE Airway General Information Procedure Start Time/Medication Administration: 06/29/2023 7:47 AM Patient location during procedure: OR Timeout Performed Pre-procedure: timeout performed Consent Obtained: Yes Patient identity confirmed: arm band, care java development team lead and patient Staffing DISHTANK OPERATOR: Scar Merritt APRN.DISHTANK OPERATOR Performed by: ELVIN Indications and Patient Condition Indications for airway management: anesthesia Preoxygenated: yes anesthesia circuit Patient position: sniffing Method: asleep Cricoid Pressure: Yes Manual In-Line Stabilization: No Difficult Mask: No Final Airway Details Final airway type: endotracheal airway Final Endotracheal Airway: ETT Cuffed: yes Successful intubation technique: video laryngoscopy Devices used: intubating stylet and Roy Endotracheal tube insertion site: oral Blade: Richard Blade size: #4 ETT size (mm): 7.5 Measured from: lips Measurement (cm): 23 Placement verified by: capnometry Cormack-Lehane Classification: grade IIb - view of arytenoids or posterior of glottis only Number of attempts at approach: 1 Failed airway: no Unrecognized esophageal intubation: no Airway not difficult SIGNATURE: Scar Merritt APRN.DISHTANK OPERATOR PATIENT NAME: Matteo Thompson DATE: June 29, 2023 TIME: 8:03 AM CSN: [id number] [facility] 06-22-2023 Note HNO ID: [id number] Author: Chiquita Stover Tech Service: Radiology Author Type: Marriage And Family Social Worker Type: Progress Notes Filed: 06/22/2023 10:36 AM Note Text: Radiology Service Progress Note PATIENT NAME: Matteo Thompson DATE OF SERVICE: June 22, 2023 TIME: 10:36 AM PATIENT IDENTITY VERIFICATION COMPLETED USING TWO (2) IDENTIFIERS: Name and Date of confirmed by patient verbally and Name and Date of confirmed by identification band. FALL SCREENING: Has the patient had 2 falls in the last year or 1 fall with injury or currently using an Ambulatory Assistive Device (Walker, Cane, Wheelchair, Crutches, etc.)? No PATIENT GENDER DATA: Male PATIENT RELEVANT IMPLANT DATA REVIEWED: Not Applicable RADIOLOGY DEPARTMENT: Ultrasound PERIPHERAL IV DATA: Not applicable SIGNED BY: Naveen Begum June 22, 2023 10:36 AM [facility] 06-13-2023 Instructions Jillian Du PA-C - 06/13/2023 9:57 AM EDT PATIENT PREOPERATIVE INSTRUCTIONS Shaun Delacruz,* has scheduled you for your procedure at this surgery center: [facility]: [phone] -- [address] [facility] [address]. Please read below carefully for your personalized instructions. Dietary Restrictions: - No solid food after midnight. - You may have 12 ounces of clear liquids (water, clear juices such as apple juice or gatorade, carbonated beverages, clear tea, black coffee, jello) until 2 hours before scheduled arrival at facility. - Do not drink any alcohol after midnight the night before your surgery. Medications: Unless instructed differently below, stay on all of your medications until your surgery. If you start any new medications after today's visit, please contact your surgeon. Pre-Surgery Med Instructions Medication Instructions atorvastatin (LIPITOR) 40 mg tablet Take the day of surgery with a small sip of water losartan (COZAAR) 50 mg tablet Do not take for 24 hours prior to surgery cholecalciferol (VITAMIN D) 1,000 unit tab tablet OK to take as you normally do Ascorbic Acid (VITAMIN C) 500 mg chew Stop 14 days before surgery vit C/E/Zn/coppr/lutein/zeaxan (PRESERVISION AREDS-2 ORAL) Stop 14 days before surgery aspirin 81 mg chewable tablet Take the day of surgery with a small sip of water carvedilol (COREG) 6.25 mg tablet Take the day of surgery with a small sip of water multivitamin tablet Stop 14 days before surgery clopidogrel (PLAVIX) 75 mg ORAL Tab Stop 7 days before surgery If you take any medications for erectile dysfunction-Cialis (Tadalafil), Levitra, Staxyn (Vardenafil) Viagra (Sildenenafil please do not take these for 48 hours before surgery. If you start any new medications after today's visit, please contact the surgeon's office. Blood Thinning Medications: - Stop NSAIDS (Ibuprofen, Advil, Aleve, Motrin, Celebrex, Mobic, etc.) 7 days before surgery, as directed by your surgeon. - Do NOT stop aspirin or other anticoagulants without consulting with your data review specialist or prescribing physician. - Stop Vitamin E, ALL multi-vitamins, herbals and dietary supplements 7 days before surgery. - You may take Tylenol (Acetaminophen) or any of your pain medications that do not contain aspirin or NSAIDS as needed. Mupirocin Ointment Instructions Apply 1/2 inch of the mupirocin ointment with a Q-tip to both nostrils in the morning and afternoon for 5 consecutive days before surgery. If you are scheduled for a pre-op Covid-19 test, please do not apply mupirocin the morning of your test. You may apply it right after the test instead. Important Reminders: - Candy, mints, and tobacco products are NOT permitted the morning of surgery. - Hearing aids, dentures and glasses may be worn the morning of surgery. - NO jewelry, body piercings, makeup, hairpins or contacts are to be worn the day of surgery. If you develop symptoms such as a fever, cold, or flu, or have other changes to your health within TWO DAYS of scheduled surgery or the morning of surgery, please contact the surgery center above. Personal Belongings: -Please have photo ID and insurance cards. -If you do not have a copy of advance directives on file with us, please bring a copy with you on the day of surgery. - Leave ALL valuables and money at home or with family members. For Outpatient Procedures: - YOU MUST HAVE A RESPONSIBLE [place]OR [place] TAKE YOU HOME. A SANITATION SUPERINTENDENT OR TOP EDGE BEVELER CANNOT BE MADE A RESPONSIBLE [place]. - We recommend that a responsible person stays with you overnight to take care of you. - You cannot stay in a hotel alone after outpatient surgery. You will not be permitted to have your surgery, if you do not have someone to take care of you. Arrival Time for Surgery: - The Surgery Center or hospital where you are having surgery will call the afternoon before surgery (or Sunday for Sunday surgery) with a scheduled arrival time. - If you have not heard by 4 pm, please contact the surgery center above. Please be aware that emergency situations arise, which may delay or change your surgical time. If this happens, we will notify you as soon as possible and regret any inconvenience. If you already have an Advance Directive, please fax a copy to [phone] or email to for it to be added to your chart. If you do not have an Advance Directive, you can find the appropriate form and more information at [email or web address]. We recommend that you complete the Advance Directive form found on the website and bring it with you the day of your surgery. It can be witnessed and scanned into your chart that day. Jillian Du PA-C documented in this encounter [facility] 06-13-2023 Note HNO ID: [id number] Author: Casie Arenas LPN Service: ? Author Type: LICENSED NURSE Type: Progress Notes Filed: 06/13/2023 12:39 PM Note Text: k3 [facility] 06-13-2023 History of Presen t illness Narrative k3 documented in this encounter [facility] 06-13-2023 History and physical note HISTORY AND PHYSICAL EXAMINATION SERVICE DATE: 06/13/2023 SERVICE TIME: 1:33 PM PRIMARY CARE PHYSICIAN: Eduin Granados MD REASON FOR VISIT: Matteo Thompson is a 73 year old male who is scheduled for Procedure(s): REVERSE TOTAL SHOULDER ARTHROPLASTY (Left) at the request of Dr. Shaun Delacruz for consultation. My final recommendation will be communicated back to the requesting physician by way of shared medical record or letter. Subjective The patient has the following: ACTIVE PROBLEM LIST Allergic to Bees Chronic Obstructive Lung Disease (Hcc) Coronary Arteriosclerosis Essential Hypertension Hyperlipidemia Nicotine Dependence, Cigarettes, With Other Nicotine-Induced Disorders Factor V Leiden (Hcc) Heterozygous Alpha 1-Antitrypsin Deficiency (Hcc) COVID-19 Immunization Status Overdue - Covid-19 Vaccine ( season) Overdue since 04/27/2023 07/04/2021 Imm Admin: COVID-19 original vaccine, full dose, monovalent (MODERNA) 11/18/2020 Imm Admin: COVID-19 original vaccine, full dose, monovalent (MODERNA) 10/22/2020 Imm Admin: COVID-19 original vaccine, full dose, monovalent (MODERNA) CHIEF COMPLAINT: pre op HPI: Matteo Thompson is a 73 year old male presenting for pre-anesthesia consultation. Pt has history of shoulder pain. 10/10 at the worst. Above procedure recommended to manage symptoms. Procedure scheduled on 06/29/2023 at [facility]. REVIEW OF SYSTEMS: General: No weight loss, malaise or fevers. Neurological: Negative for: headaches, peripheral neuropathy, seizures, TIA and strokes. Respiratory: Positive for: COPD and tobacco use. Patient's COPD severity: mild. Negative for: asthma, current cough, dyspnea, home oxygen, orthopnea, URI < 2 weeks and obstructive sleep apnea. Cardiovascular: Denies dizziness or syncope. Positive for: CAD, hyperlipidemia and hypertension Patient's last office visit The following tests and/or procedures were performed: cardiac stents. Negative for: AICD/PPM, arrhythmia, chest pain, CHF, DVT/PE, recent [place], murmur/valvular heart disease, open heart surgery and valve surgery. GI: Negative for: abdominal pain, GERD, GI bleed <30 days, hepatitis, liver disease, nausea and vomiting. : Denies kidney disease Negative for: dysuria, frequent urination, hematuria and urinary tract infection. Endocrine: Negative for: diabetes mellitus, hyperthyroidism and hypothyroidism. Hematology: Positive for: factor V Leiden and chronic anti-coagulation/platelet meds. Patient is on anti-coagulation/platelet medication(s): Plavix and Aspirin. Negative for: anemia, bruises/bleeds easily, hemophilia, thrombocytopenia and von Willebrand disease. Oncology: No history of CA metastasis, chemo within 30 days, or radiotherapy within 90 days. No history of oncological symptoms or problems. Psych: Negative for: anxiety, bipolar disorder and depression. Musculoskeletal: See HPI. Positive for: back pain (R side lower back) and joint pain. Skin: Negative for lesions, rash and itching. PAST MEDICAL HISTORY Diagnosis Date Appendicitis, acute 02/11/2016 Chronic obstructive pulmonary disease (COPD) (HCC) Coronary artery disease Heart attack (HCC) HLD (hyperlipidemia) Hypertension PAST SURGICAL HISTORY Procedure Laterality Date APPENDECTOMY 02/11/2016 CARDIAC CATHETERIZATION HX 2005 stent HERNIA REPAIR HX 2010 laparoscopic - unsure ORTHOPEDICS SURGERY HX Left knee FAMILY HISTORY Problem Relation Age of Onset Anesthesia Problems No Family History Social History Tobacco Use Smoking status: Every Day Packs/day: 0.50 Years: 30.00 Additional pack years: 0.00 Total pack years: 15.00 Types: Cigarettes Vaping Use Vaping Use: Never used Substance Use Topics Alcohol use: Yes Alcohol/week: 7.5 standard drinks of alcohol Types: 3 Cans of Beer (12oz) per week Prior to Admission medications as of 06/13/23 0908 Medication Sig Last Dose Taking atorvastatin (LIPITOR) 40 mg tablet Taking Yes losartan (COZAAR) 50 mg tablet Take by mouth. Taking Yes cholecalciferol (VITAMIN D) 1,000 unit tab tablet Take 1,000 Units by mouth once daily. Taking Yes Ascorbic Acid (VITAMIN C) 500 mg chew Take 500 mg by mouth once daily. Taking Yes vit C/E/Zn/coppr/lutein/zeaxan (PRESERVISION AREDS-2 ORAL) Take by mouth. Taking Yes aspirin 81 mg chewable tablet Take 81 mg by mouth once daily. Taking Yes carvedilol (COREG) 6.25 mg tablet Take 3.125 mg by mouth twice daily with meals. Taking Yes multivitamin tablet Take 1 tablet by mouth once daily. Taking Yes clopidogrel (PLAVIX) 75 mg ORAL Tab Take 75 mg by mouth two times a week. Mon and Taking Yes buPROPion SR (ZYBAN SR; WELLBUTRIN SR) 150 mg 12 hr tablet Not Taking rosuvastatin (CRESTOR) 20 mg ORAL Tab Take one(1) tablet daily. Patient not taking: Reported on 06/13/2023 Not Taking enalapril (VASOTEC) 5 mg ORAL Tab Take one(1) tablet twice daily. Patient not taking: Reported on 06/13/2023 Not Taking nitroglycerin sublingual 0.4 mg SUBLINGUAL Subl Dissolve one(1) tablet under the toungue as needed for chest pain,every 5 min x3 Patient not taking: Reported on 06/13/2023 Not Taking No medication comments found. ALLERGIES Allergen Reactions Amoxicillin Rash Contrast Dye Swelling Ketek [Telithromyci* Rash Objective PHYSICAL EXAM: General: alert and oriented and healthy appearance. Pertinent negatives noted - not distressed. Skin: normal color, no rash or lesions. HEENT: EOM intact, pupils equal round and pupils reactive to light. Pertinent negatives noted - no carotid bruit. Cardiovascular: regular rate and rhythm, normal S1 and S2, no rub, murmurs, or gallop. Respiratory: normal breath sounds, no wheezes or crackles. No chest wall deformity or tenderness. Abdomen: bowel sounds present and soft. Pertinent negatives noted - not tender. Extremities: no deformity, no edema or tenderness, no joint swelling or clubbing. Neurological: normal cognition and motor skills. Gait normal. No weakness or sensory deficit. PAIN ASSESSMENT: Pain Pain Level: 2 Pain Location: Shoulder-Left Duration Units: Unknown VITALS: BP 114/53 Pulse 56 Temp (Src) 98.6 (Oral) Resp 16 Ht 6' 0 (1.83m) Wt 201 lb (91.2kg) SpO2 95% BMI 27.25 kg/(m^2). Diagnostic tests reviewed for today's visit: Lab Value Units Date High Low HB 16.8 g/dL 05/25/2023 17.0 13.0 HCT 52.1 % 05/25/2023 51.0 39.0 WBC 9.96 k/uL 05/25/2023 11.00 3.70 PLT 153 k/uL 05/25/2023 400 150 NA 140 mmol/L 05/25/2023 144 136 K 5.3 mmol/L 05/25/2023 5.1 3.7 GLUC 93 mg/dL 05/25/2023 99 74 BUN 13 mg/dL 05/25/2023 24 9 CREAT 0.59 mg/dL 05/25/2023 1.22 0.73 PTSEC No results within date range. INR No results within date range. APTT No results within date range. ALT 41 U/L 05/25/2023 54 10 AST 32 U/L 05/25/2023 40 14 TBILI 1.4 mg/dL 05/25/2023 1.3 0.2 TSH 1.280 mIU/L 05/25/2023 4.200 0.270 Lab Value Units Date High Low HCGQT No results within date range. UHCG No results within date range. HCG, BODY* No results within date range. Lab Value Units Date High Low ABORHD No results within date range. ABSCREEN No results within date range. Hemoglobin A1C (%) Date Value 05/25/2023 5.2 01/03/2023 5.1 No results found for this or any previous visit (from the past 8760 hour(s)). No results found for this or any previous visit (from the past 45158 hour(s)). Assessment Patient has the following medical conditions which may affect sergio-operative course: Coronary arteriosclerosis Assessment: Follows with cardiology ([facility]). Remote [place] hx, S/P angioplasty and stenting of the left anterior descending artery in 2005 with a drug- eluting stent. Adherent to ASA therapy, still on clopidogrel 3 days a week? Will follow up with cardiology and PCP. 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 Heterozygosity for Factor V Leiden results in resistance to activated protein C and may impart an increased risk for thromboembolic disease. Heterozygous alpha 1-antitrypsin deficiency (HCC) Assessment: PI*MZ documented on lab 01/16/17, CT does not demonstrate significant emphysema. Chronic obstructive lung disease (HCC) Assessment: Current smoker. Not on inhalers. Pt denies dyspnea, cough, chest congestion. SpO2 today 95% on RA, lungs CTA on exam. Essential hypertension Assessment: Follows with cardiology and PCP , adherent to RX. In office today BP: 114/53 Hyperlipidemia Assessment: Follows with PCP, adherent to RX Nicotine dependence, cigarettes, with other nicotine-induced disorders Assessment: Current, everyday smoker. Smokes 3-4 cigarettes a day, which is cut down. Encouraged cessation. Kelsey Activity Status Index: METS: Participate in moderate recreational activites, such as golf, bowling, dancing, doubles tennis, or throwing a baseball or football (6.00 METs) DASI Score: 6 Clinical Frailty Scale: 3. Well, with treated comorbid disease STOP-Bang Score: Has or is being treated for high blood pressure Patient over 50 years old Male patient Denies snoring loudly Denies feeling tired, fatigued, or sleepy during the daytime Has not been observed to stop breathing or choking/gasping during sleep BMI less than or equal to 35 kg/m^2 Does not have a large neck STOP-Bang Score: 3 [id number] Score: Age: 65-74 Sex: male CHF history: No Hypertension history: Yes Stroke/TIA/thromboembolism history: No Vascular disease history: Yes Diabetes history: No [id number] Score: 3 ANESTHESIA FINDINGS: Intubation History: No history of difficult intubation. No abnormal airway history Significant Anesthesia Considerations: none Airway History: No history of difficult airway No abnormal airway history I - PHYSICAL EVALUATION AIRWAY Patient intubated: No. Tracheostomy tube not present Mallampati: IV. TM distance: >3 FB. Neck ROM: full ROM without neurological symptoms. Mouth opening: adequate. Short neck: no. Thick neck: no Mcdonough present: no Lip Bite Test: I Microretrognathia/Micronagthia/R ecessed Chin: No DENTAL Additional comments: + caps/crowns. II - ANESTHESIA PLAN Anesthetic Plan: other Anesthetic plan additional comments: *PACC/TCI - anesthesia choice. Beta Giovanna Monitoring Plan Post Procedure Analgesic Plan Prepared for Surgery: optimally prepared for surgery, pending [see comment]. ECG cardiology read Will obtain approval for holding Plavix CONSULTS: Patient does not require consults for optimization at this time Planned Anesthetic: other anesthesia choice The Following Tests/Procedures Have Been Initiated: Orders Placed This Encounter atorvastatin (LIPITOR) 40 mg tablet buPROPion SR (ZYBAN SR; WELLBUTRIN SR) 150 mg 12 hr tablet losartan (COZAAR) 50 mg tablet Sig: Take by mouth. cholecalciferol (VITAMIN D) 1,000 unit tab tablet Sig: Take 1,000 Units by mouth once daily. Ascorbic Acid (VITAMIN C) 500 mg chew Sig: Take 500 mg by mouth once daily. vit C/E/Zn/coppr/lutein/zeaxan (PRESERVISION AREDS-2 ORAL) Sig: Take by mouth. ECG (IN OFFICE) Instructions Given to Patient: Instructions located in the after visit summary. Patient given verbal and written preop instructions and voices comprehension and compliance. SIGNATURE: Jillian Du PA-C PATIENT NAME: Matteo Thompson DATE: 06/13/2023 TIME: 1:33 PM PAGER/CONTACT #: documented in this encounter [facility] 05-22-2023 Miscellaneous Notes Called patient and scheduled appt for 07/06/23. Please reach out to patient and assist with scheduling post-op physical therapy. Surgery is 06-29-2023. He should be seen approximately 1 week post-op. Thank you. Park Cardenas documented in this encounter [facility] 05-14-2023 Miscellaneous Notes Addended by: IDA BOLTON on: 05/14/2023 12:53 PM Modules accepted: Orders documented in this encounter [facility] 04-27-2023 Note HNO ID: [id number] Author: Shaun Delacruz MD Service: ? Author Type: Physician Type: Progress Notes Filed: 04/27/2023 1:33 PM Note Text: ORTHOPAEDIC SHOULDER AND ELBOW SERVICE HISTORY AND PHYSICAL EXAM REFERRING PROVIDER: No referring provider defined for this encounter. CHIEF COMPLAINT: Left shoulder pain and weakness PAIN EVALUATION 04/27/2023 1155 Pain Location: Shoulder-Left Description: Aching;Sharp;Shooting Duration Units: Years Frequency: Intermittent Matteo Thompson is a 73 year old man who presents today for evaluation of his left shoulder. He has had worsening pain and diminished function of the left upper extremity over the past several months. He was told over 3 years ago that he had a complete tear of his rotator cuff but opted to forego surgery at that time. He has been generally functioning well until just recently but now feels he has difficulty with most tasks using the arm. PAST MEDICAL HISTORY: PAST MEDICAL HISTORY Diagnosis Date Appendicitis, acute 02/11/2016 Chronic obstructive pulmonary disease (COPD) (HCC) Coronary artery disease Heart attack (HCC) Hypertension PAST SURGICAL HISTORY: PAST SURGICAL HISTORY Procedure Laterality Date APPENDECTOMY 02/11/2016 CARDIAC CATHETERIZATION HX 2005 stent HERNIA REPAIR HX 2010 laparoscopic - unsure ORTHOPEDICS SURGERY HX Left knee SOCIAL HISTORY: Social History Tobacco Use Smoking status: Every Day Packs/day: 0.50 Years: 30.00 Additional pack years: 0.00 Total pack years: 15.00 Types: Cigarettes Vaping Use Vaping Use: Never used Substance Use Topics Alcohol use: Yes Alcohol/week: 7.5 standard drinks of alcohol Types: 3 Cans of Beer (12oz) per week ALLERGIES: ALLERGIES Allergen Reactions Amoxicillin Rash Contrast Dye Swelling Ketek [Telithromyci* Rash MEDICATIONS: Current Outpatient Medications on File Prior to Visit Medication Sig aspirin 81 mg chewable tablet Take 81 mg by mouth once daily. carvedilol (COREG) 6.25 mg tablet Take 3.125 mg by mouth twice daily with meals. multivitamin tablet Take 1 tablet by mouth once daily. rosuvastatin (CRESTOR) 20 mg ORAL Tab Take one(1) tablet daily. enalapril (VASOTEC) 5 mg ORAL Tab Take one(1) tablet twice daily. clopidogrel (PLAVIX) 75 mg ORAL Tab Take one(1) tablet daily. nitroglycerin sublingual 0.4 mg SUBLINGUAL Subl Dissolve one(1) tablet under the toungue as needed for chest pain,every 5 min x3 No current facility-administered medications on file prior to visit. PHYSICAL EXAMINATION: There were no vitals taken for this visit. EXAM: Shoulder Musculoskeletal Exam Inspection Left Ecchymosis: none Peripheral edema: none Atrophy: none Symmetry: symmetric Masses: none Skin tenting: none Prior incision: none Palpation Left Crepitus: no crepitus Increased warmth: none Tenderness: present Anterior shoulder: moderate Posterior shoulder: mild Clavicle: none AC joint: mild Sternoclavicular joint: none Rotator cuff: moderate Greater tuberosity: mild Trapezius: mild Medial scapula: none Superior pole of scapula: none Inferior pole of scapula: none Bicipital groove: mild Proximal biceps: moderate Range of Motion Left Active ROM: abnormal and pain. Passive ROM: abnormal and pain. Active forward elevation: 90. Passive forward elevation: 120. Shoulder active abduction: 90. Passive abduction: 90. Active external rotation at side: 60. Passive external rotation at side: 60. Active external rotation in abduction: 80. Passive external rotation in abduction: 80. Active internal rotation in abduction: 60. Passive internal rotation in abduction: 60. Internal rotation: T12. Strength Left External rotation: 4+/5. Internal rotation: 4+/5. Abduction: 4+/5. Neurovascular Left Left shoulder nerve sensation is normal. Scapula Left Left shoulder scapula is normal. Special Tests Left Rotator Cuff Signs Neer's test: positive Bui test: positive External rotation lag sign: negative Supraspinatus: positive Belly press test: negative Painful arc test: positive Lift-off sign: negative Biceps/hyun Signs [place]'s test: positive Clicking/popping: negative Speed's test: positive AC Joint Signs Active horizontal adduction pain: negative Single finger test: negative General Constitutional: appears stated age Labored breathing: no Psychiatric: normal mood and affect and no acute distress Neurological: alert and oriented x3 Skin: intact Lymphadenopathy: none IMAGING: I reviewed radiographs of his left shoulder showing chronic changes of rotator cuff tear arthropathy with humeral head elevation and evidence of contact between the superior humeral head and the undersurface of the acromion. MEDICAL DECISION MAKING: (M75.102, M12.812) Rotator cuff tear arthropathy of left shoulder (primary encounter diagno (more content not included)... [facility] 04-27-2023 History of Presen t illness Narrative Radiology Service Progress Note PATIENT NAME: Matteo Thompson DATE OF SERVICE: April 27, 2023 TIME: 9:01 AM PATIENT IDENTITY VERIFICATION COMPLETED USING TWO (2) IDENTIFIERS: Name and Date of confirmed by patient verbally. FALL SCREENING: Has the patient had 2 falls in the last year or 1 fall with injury or currently using an Ambulatory Assistive Device (Walker, Cane, Wheelchair, Crutches, etc.)? No PATIENT GENDER DATA: Male PATIENT RELEVANT IMPLANT DATA REVIEWED: Not Applicable RADIOLOGY DEPARTMENT: General X-ray: Exam(s) Completed: Upper Extremity X-Ray(s): Shoulder, TRUE AP / AXILLARY / SUPRA OUTLET left PERIPHERAL IV DATA: Not applicable SIGNED BY: Naveen Marinelli April 27, 2023 9:01 AM documented in this encounter [facility] 04-27-2023 Note HNO ID: [id number] Author: Madison Arcos Tech Service: Radiology Author Type: Marriage And Family Social Worker Type: Progress Notes Filed: 04/27/2023 9:01 AM Note Text: Radiology Service Progress Note PATIENT NAME: Matteo Thompson DATE OF SERVICE: April 27, 2023 TIME: 9:01 AM PATIENT IDENTITY VERIFICATION COMPLETED USING TWO (2) IDENTIFIERS: Name and Date of confirmed by patient verbally. FALL SCREENING: Has the patient had 2 falls in the last year or 1 fall with injury or currently using an Ambulatory Assistive Device (Walker, Cane, Wheelchair, Crutches, etc.)? No PATIENT GENDER DATA: Male PATIENT RELEVANT IMPLANT DATA REVIEWED: Not Applicable RADIOLOGY DEPARTMENT: General X-ray: Exam(s) Completed: Upper Extremity X-Ray(s): Shoulder, TRUE AP / AXILLARY / SUPRA OUTLET left PERIPHERAL IV DATA: Not applicable SIGNED BY: Naveen Marinelli April 27, 2023 9:01 AM [facility] 03-19-2023 Note HNO ID: [id number] Author: Giovanny Srinivasan RN Service: ? Author Type: Registered Nurse Type: Progress Notes Filed: 03/19/2023 1:41 PM Note Text: ACTIONABLE FINDING COMPLETED NOTE Summary: CT Chest from 02/12/2023 noted with actionable finding. Recommendation: US Kidney/Bladder US Kidney/Bladder completed on 02/16/2023. ___ Actionable Findings follow up status: Complete Giovanny Srinivasan RN March 19, 2023 1:40 PM [facility] 03-19-2023 Note Patient Outreach (QA INDP) MATTEO THOMPSON ([id number]) 1950 [address] [facility] Date Time Provider Department 03/19/23 GIOVANNY SRINIVASAN QAINDP During your visit today, we recorded the following information about you: Giovanny Srinivasan, TRENA 03/19/2023 1:41 PM Signed ACTIONABLE FINDING COMPLETED NOTE Summary: CT Chest from 02/12/2023 noted with actionable finding. Recommendation: US Kidney/Bladder US Kidney/Bladder completed on 02/16/2023. ___ Actionable Findings follow up status: Complete Giovanny Srinivasan RN March 19, 2023 1:40 PM Allergies As of Date: 03/19/2023 Noted Allergy Reaction AMOXICILLIN 01/23/2007 2 - Rash CONTRAST DYE 01/23/2007 7 - Swelling KETEK (TELITHROMYCIN) 01/23/2007 2 - Rash Date Reviewed: 05/08/2022 Reviewed by: Priya Cleary, RN - Fully Assessed Reason for Visit: Actionable Findings Follow Up [3985] Prescriptions as of 03/19/2023 - aspirin 81 mg chewable tablet Take 81 mg by mouth once daily. - carvedilol (COREG) 6.25 mg tablet Take 3.125 mg by mouth twice daily with meals. - multivitamin tablet Take 1 tablet by mouth once daily. - rosuvastatin (CRESTOR) 20 mg ORAL Tab Take one(1) tablet daily. - enalapril (VASOTEC) 5 mg ORAL Tab Take one(1) tablet twice daily. - clopidogrel (PLAVIX) 75 mg ORAL Tab Take one(1) tablet daily. - nitroglycerin sublingual 0.4 mg SUBLINGUAL Subl Dissolve one(1) tablet under the toungue as needed for chest pain,every 5 min x3 Problem List As Of Date 03/19/2023 Noted Resolved Appendicitis, acute [K35.80] 02/11/2016 03/15/2016 Encounter Status:Closed by GIOVANNY SRINIVASAN on 03/19/23 [facility] 02-16-2023 History of Presen t illness Narrative Radiology Service Progress Note PATIENT NAME: Matteo Thompson DATE OF SERVICE: February 16, 2023 TIME: 9:37 AM PATIENT IDENTITY VERIFICATION COMPLETED USING TWO (2) IDENTIFIERS: Name and Date of confirmed by patient verbally. FALL SCREENING: Has the patient had 2 falls in the last year or 1 fall with injury or currently using an Ambulatory Assistive Device (Walker, Cane, Wheelchair, Crutches, etc.)? No PATIENT GENDER DATA: Male PATIENT RELEVANT IMPLANT DATA REVIEWED: Not Applicable RADIOLOGY DEPARTMENT: Ultrasound PERIPHERAL IV DATA: Not applicable SIGNED BY: DANYELLE Barrett February 16, 2023 9:37 AM documented in this encounter [facility] 02-12-2023 Miscellaneous Notes Radiology Service Progress Note PATIENT NAME: Matteo Thompson DATE OF SERVICE: February 12, 2023 TIME: 7:20 AM PATIENT IDENTITY VERIFICATION COMPLETED USING TWO (2) IDENTIFIERS: Name and Date of confirmed by patient verbally and Name and Date of confirmed by identification band. FALL SCREENING: Has the patient had 2 falls in the last year or 1 fall with injury or currently using an Ambulatory Assistive Device (Walker, Cane, Wheelchair, Crutches, etc.)? No PATIENT GENDER DATA: Male PATIENT RELEVANT IMPLANT DATA REVIEWED: Not Applicable RADIOLOGY DEPARTMENT: CT; Exam(s) Completed: Chest PERIPHERAL IV DATA: Not applicable SIGNED BY: DANYELLE Bellamy February 12, 2023 7:20 AM documented in this encounter [facility] 02-11-2016 History of Past i llness Narrative Problem Noted Date Resolved Date Appendicitis, acute 02/11/2016 03/15/2016 documented as of this encounter (statuses as of 2023) [facility] History of Past illness Narrative* Problem Noted Date Resolved Date Appendicitis, acute 02/11/2016 03/15/2016 documented as of this encounter (statuses as of 02/17/2023) [address]17-2016 History of Past illness Narrative* Problem Noted Date Diagnosed Date Resolved Date Appendicitis, acute 02/11/2016 03/15/20 16 documented as of this encounter (statuses as of 04/03/2023) [facility] History of Past illness Narrative* Problem Noted Date Diagnosed Date Resolved Date Appendicitis, acute 02/11/2016 03/15/20 16 documented as of this encounter (statuses as of 05/14/2023) [address]17-2016 History of Past illness Narrative* Problem Noted Date Diagnosed Date Resolved Date Appendicitis, acute 02/11/2016 03/15/20 16 documented as of this encounter (statuses as of 05/23/2023) [address]17-2016 History of Past illness Narrative* Problem Noted Date Diagnosed Date Resolved Date Appendicitis, acute 02/11/2016 03/15/20 16 documented as of this encounter (statuses as of 06/13/2023) [address]17-2016 History of Past illness Narrative* Problem Noted Date Diagnosed Date Resolved Date Appendicitis, acute 02/11/2016 03/15/20 16 documented as of this encounter (statuses as of 07/06/2023) [address]17-2016 History of Past illness Narrative* Problem Noted Date Diagnosed Date Resolved Date Appendicitis, acute 02/11/2016 03/15/20 16 documented as of this encounter (statuses as of 07/10/2023) [address]17-2016 History of Past illness Narrative* Problem Noted Date Diagnosed Date Resolved Date Appendicitis, acute 02/11/2016 03/15/20 16 documented as of this encounter (statuses as of 07/13/2023) [address]17-2016 History of Past illness Narrative* Problem Noted Date Diagnosed Date Resolved Date Appendicitis, acute 02/11/2016 03/15/20 16 documented as of this encounter (statuses as of 07/17/2023) [address]17-2016 History of Past illness Narrative* Problem Noted Date Diagnosed Date Resolved Date Appendicitis, acute 02/11/2016 03/15/20 16 documented as of this encounter (statuses as of 07/23/2023) [address] History of Past illness Narrative* Problem Noted Date Diagnosed Date Resolved Date Appendicitis, acute 02/11/2016 03/15/20 16 documented as of this encounter (statuses as of 07/30/2023) [facility] History of Past illness Narrative* Problem Noted Date Diagnosed Date Resolved Date Appendicitis, acute 02/11/2016 03/15/20 16 documented as of this encounter (statuses as of 08/06/2023) [facility] History of Past illness Narrative* Problem Noted Date Diagnosed Date Resolved Date Appendicitis, acute 02/11/2016 03/15/20 16 documented as of this encounter (statuses as of 08/07/2023) [facility] History of Past illness Narrative* Problem Noted Date Diagnosed Date Resolved Date Appendicitis, acute 02/11/2016 03/15/20 16 documented as of this encounter (statuses as of 08/11/2023) [facility] Diagnosis Chronic left shoulder pain- Primary Pain in joint, shoulder region [facility] Diagnosis Rotator cuff tear arthropathy of left shoulder- Primary Status post reverse total shoulder replacement, unspecified laterality Rotator cuff tear arthropathy of left shoulder [facility] Diagnosis Pre-op evaluation- Primary Preoperative examination, unspecified Coronary arteriosclerosis Coronary atherosclerosis of unspecified type of vessel, [place] or graft Factor V Leiden (HCC) Primary hypercoagulable state Heterozygous alpha 1-antitrypsin deficiency (HCC) [id number]-phrlymkejfo deficiency Chronic obstructive pulmonary disease, unspecified COPD type (HCC) Essential hypertension Unspecified essential hypertension Hyperlipidemia, unspecified hyperlipidemia type Nicotine dependence, cigarettes, with other nicotine-induced disorders Rotator cuff tear arthropathy of left shoulder [facility] Diagnosis Status post reverse total shoulder replacement, unspecified laterality Acute pain of left shoulder [facility] Diagnosis Chronic left shoulder pain Pain in joint, shoulder region [facility] Diagnosis 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 [facility] Diagnosis 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 Acute pain of left shoulder Shoulder stiffness, left [facility] Diagnosis 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 Shoulder stiffness, left documented in this encounter [facility] note* Diagnosis Chronic left shoulder pain- Primary Pain in joint, shoulder region documented in this encounter [facility] note* Diagnosis 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 Shoulder stiffness, left documented in this encounter [facility] note* Diagnosis 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 documented in this encounter [facility] note* Diagnosis Chronic obstructive pulmonary disease, unspecified COPD type (HCC)- Primary documented in this encounter [facility] note* Diagnosis Leukocytosis, unspecified type- Primary Erythrocytosis Polycythemia, secondary documented in this encounter [facility] note* Diagnosis Pre-op evaluation- Primary Preoperative examination, unspecified Coronary arteriosclerosis Coronary atherosclerosis of unspecified type of vessel, [place] or graft Factor V Leiden (HCC) Primary hypercoagulable state Heterozygous alpha 1-antitrypsin deficiency (HCC) Fifrp-2-ugyjfdbgdvb deficiency Chronic obstructive pulmonary disease, unspecified COPD type (HCC) Essential hypertension Unspecified essential hypertension Hyperlipidemia, unspecified hyperlipidemia type Nicotine dependence, cigarettes, with other nicotine-induced disorders Chronic left shoulder pain Pain in joint, shoulder region documented in this encounter [facility] note* Diagnosis Chronic left shoulder pain Pain in joint, shoulder region Pre-op evaluation- Primary Preoperative examination, unspecified Coronary arteriosclerosis Coronary atherosclerosis of unspecified type of vessel, [place] or graft Factor V Leiden (HCC) Primary hypercoagulable state Heterozygous alpha 1-antitrypsin deficiency (HCC) Vsutm-8-[id number] deficiency Chronic obstructive pulmonary disease, unspecified COPD type (HCC) Essential hypertension Unspecified essential hypertension Hyperlipidemia, unspecified hyperlipidemia type Nicotine dependence, cigarettes, with other nicotine-induced disorders documented in this encounter [facility] for referral (narrative)* Diagnostic Procedure Only (Routine) - Pending Review Specialty Diagnoses / Procedures Referred By Valeria khan Referred To Contact XR IMAGING Diagnoses Chronic left shoulder pain Procedures XR SHOULDER GENERAL 3V OR MORE AP/TRUE AP/OTHER LEFT RADEX SHOULDER COMPLETE MINIMUM 2 VIEWS Ida Bolton PA-C [address] [place] [address] Xr Imaging Referral ID Status Reason Start Date Expiration Date Visits Requested Visits Authorized [id number] Pending Review Auto-Generat ed Referral 04/03/2023 05/01/[address] [facility] Outpatient Procedure (Routine) - Pending Review Specialty Diagnoses / Procedures Referred By Contac t Referred To Contact [facility] Diagnoses Pre-op evaluation Procedures ECG COMPLETE ECG ROUTINE ECG W/LEAST 12 LDS W/I&R Jillian Du PA-C [address] [place] [address] [facility] [address] [place] [id number] Referral ID Status Reason Start Date Expiration Date Visits Requested Visits Authorized [id number] Pending Review Auto-Generat ed Referral 3 06/12/[address] [facility] Diagnostic Procedure Only (Routine) - Pending Review Specialty Diagnoses / Procedures Referred By Contac t Referred To Contact XR IMAGING Diagnoses Chronic left shoulder pain Procedures XR SHOULDER GENERAL 3V OR MORE AP/TRUE AP/OTHER LEFT RADEX SHOULDER COMPLETE MINIMUM 2 VIEWS Ida Bolton PA-C [address] [place] [address] [place] [address] Referral ID Status Reason Start Date Expiration Date Visits Requested Visits Authorized [id number] Pending Review Auto-Generat ed Referral 3 09/04/[address] [facility] Outpatient Procedure (Routine) - Outside PCP Specialty Diagnoses / Procedures Referred By Contac t Referred To Contact [facility] Diagnoses Chronic obstructive pulmonary disease, unspecified COPD type (HCC) Procedures LUNG DIFFUSION CAPACITY (DLCO) DIFFUSING CAPACITY Cchs, Provider NON-STAFF PROVIDER [facility] [address] [place] [address] Referral ID Status Reason Start Date Expiration Date Visits Requested Visits Authorized [id number] Outside PCP Auto-Generat ed Referral 01/25/2024 02/23/2025 1 1 * Outpatient Procedure (Routine) - Outside PCP Specialty Diagnoses / Procedures Referred By Contac t Referred To Contact [facility] Diagnoses Chronic obstructive pulmonary disease, unspecified COPD type (HCC) Procedures LUNG VOLUMES [facility], Provider NON-STAFF PROVIDER Res[facility] [address] [place] [address] Referral ID Status Reason Start Date Expiration Date Visits Requested Visits Authorized [id number] Outside PCP Auto-Generat ed Referral 01/25/2024 02/23/2025 1 1 * Outpatient Procedure (Routine) - Outside PCP Specialty Diagnoses / Procedures Referred By Contac t Referred To Contact [facility] Diagnoses Chronic obstructive pulmonary disease, unspecified COPD type (HCC) Procedures SPIROMETRY - BASELINE AND POST DILATOR BRNCDILAT RSPSE SPMTRY PRE&POST-BRNCDILAT [facility], Provider NON-STAFF PROVIDER Res[facility] [address] [place] [address] Referral ID Status Reason Start Date Expiration Date Visits Requested Visits Authorized [id number] Outside PCP Auto-Generat ed Referral 01/25/2024 02/23/2025 1 1 [facility] for referral (narrative)* Diagnostic Procedure Only (Routine) - Closed Specialty Diagnoses / Procedures Referred By Contac t Referred To Contact XR IMAGING Diagnoses Chronic left shoulder pain Procedures XR SHOULDER GENERAL 3V OR MORE AP/TRUE AP/OTHER LEFT RADEX SHOULDER COMPLETE MINIMUM 2 VIEWS Ida Bolton PA-C [address] [place] [address] [facility] Referral ID Status Reason Start Date Expiration Date V isits Requested Visits Authorized [id number] Closed Auto-Generate d Referral 08/06/2023 09/04/2024 1 1 [facility] for referral (narrative)* Diagnostic Procedure Only (Routine) - Closed Specialty Diagnoses / Procedures Referred By Contac t Referred To Contact XR IMAGING Diagnoses Chronic left shoulder pain Procedures XR SHOULDER GENERAL 3V OR MORE AP/TRUE AP/OTHER LEFT RADEX SHOULDER COMPLETE MINIMUM 2 VIEWS Ida Bolton PA-C [address] [place] [address] [place] [address] Referral ID Status Reason Start Date Expiration Date V isits Requested Visits Authorized [id number] Closed Auto-Generate d Referral 04/03/2023 05/01/2024 1 1 [facility] for visit Narrative* Diagnostic Procedure Only (Routine) - Closed Specialty Diagnoses / Procedures Referred By Contac t Referred To Contact XR IMAGING Diagnoses Chronic left shoulder pain Procedures XR SHOULDER GENERAL 3V OR MORE AP/TRUE AP/OTHER LEFT RADEX SHOULDER COMPLETE MINIMUM 2 VIEWS Ida Bolton PA-C [address] [place] [address] [place] [address] Referral ID Status Reason Start Date Expiration Date V isits Requested Visits Authorized [id number] Closed Auto-Generate d Referral 07/09/2023 07/31/2024 1 1 [facility] for visit Narrative* Diagnostic Procedure Only (Routine) - Closed Specialty Diagnoses / Procedures Referred By Contac t Referred To Contact XR IMAGING Diagnoses Chronic left shoulder pain Procedures XR SHOULDER GENERAL 3V OR MORE AP/TRUE AP/OTHER LEFT RADEX SHOULDER COMPLETE MINIMUM 2 VIEWS Ida Bolton PA-C [address] [place] [address] [place] [address] Referral ID Status Reason Start Date Expiration Date V isits Requested Visits Authorized [id number] Closed Auto-Generate d Referral 08/06/2023 09/04/2024 1 1 [facility] for visit Narrative* Diagnostic Procedure Only (Routine) - Closed Specialty Diagnoses / Procedures Referred By Contac t Referred To Contact XR IMAGING Diagnoses Chronic left shoulder pain Procedures XR SHOULDER GENERAL 3V OR MORE AP/TRUE AP/OTHER LEFT RADEX SHOULDER COMPLETE MINIMUM 2 VIEWS Ida Bolton PA-C [address] [place] [address] [place] [address] Referral ID Status Reason Start Date Expiration Date V isits Requested Visits Authorized [id number] Closed Auto-Generate d Referral 04/03/2023 05/01/2024 1 1 [facility] Summary Purpose Family History No Family History Records FoundNo Family History Records FoundNo Family History Records FoundNo Family History Records Found Advance Directives No Advanced Directives Records FoundNo Advanced Directives Records FoundNo Advanced Directives Records FoundNo Advanced Directives Records Found Reason for Referral Specialty Diagnoses / Procedures Referred By Contac t Referred To Contact [facility] Diagnoses Status post reverse total shoulder replacement, unspecified laterality Procedures CONSULT TO PHYSICAL THERAPY PHYSICAL THERAPY EVALUATION HIGH COMPLEX 45 MINS Ida Bolton PA-C [address] [place] [address] [facility] [address] [place] [address] Referral ID Status Reason Start Date Expiration Date Visits Requested Visits Authorized [id number] Authorized PCP Requested Referral Auto-Generate d Referral 05/14/2023 05/13/2024 99 99 Additional Source Comments (unrecognized sect ion and content) No Status Records FoundNo Status Records FoundNo Status Records FoundNo Status Records Found INFORMATION SOURCE (unrecogn ized section and content) DATE CREATED AUTHOR 10/14/2018 [facility] DATE CREATED AUTHOR AUTHOR'S ORGANIZ ATION 01/05/2024 [facility] DATE CREATED AUTHOR AUTHOR'S ORGANIZ ATION 02/14/2024 [facility] DATE CREATED AUTHOR AUTHOR'S ORGANIZ ATION 02/23/2024 [facility] Source Comments (unrecognize d section and content) In the event this informatio n is protected by the Federal Confidentiality of Alcohol and Drug Abuse Patient Records regulations: The Federal rules restrict any use of the information to criminally investigate or prosecute any alcohol or drug abuse patient.[facility] the event this information is protected by the Federal Confidentiality of Alcohol and Drug Abuse Patient Records regulations: The Federal rules restrict any use of the information to criminally investigate or prosecute any alcohol or drug abuse patient.[facility] the event this information is protected by the Federal Confidentiality of Alcohol and Drug Abuse Patient Records regulations: The Federal rules restrict any use of the information to criminally investigate or prosecute any alcohol or drug abuse patient.[facility] the event this information is protected by the Federal Confidentiality of Alcohol and Drug Abuse Patient Records regulations: The Federal rules restrict any use of the information to criminally investigate or prosecute any alcohol or drug abuse patient.[facility] Center[facility] the event this information is protected by the Federal Confidentiality of Alcohol and Drug Abuse Patient Records regulations: The Federal rules restrict any use of the information to criminally investigate or prosecute any alcohol or drug abuse patient.[facility] Center[facility] the event this information is protected by the Federal Confidentiality of Alcohol and Drug Abuse Patient Records regulations: The Federal rules restrict any use of the information to criminally investigate or prosecute any alcohol or drug abuse patient.[facility] Center[facility] the event this information is protected by the Federal Confidentiality of Alcohol and Drug Abuse Patient Records regulations: The Federal rules restrict any use of the information to criminally investigate or prosecute any alcohol or drug abuse patient.[facility] Center[facility] the event this information is protected by the Federal Confidentiality of Alcohol and Drug Abuse Patient Records regulations: The Federal rules restrict any use of the information to criminally investigate or prosecute any alcohol or drug abuse patient.[facility] Center[facility] the event this information is protected by the Federal Confidentiality of Alcohol and Drug Abuse Patient Records regulations: The Federal rules restrict any use of the information to criminally investigate or prosecute any alcohol or drug abuse patient.[facility] Center[facility] the event this information is protected by the Federal Confidentiality of Alcohol and Drug Abuse Patient Records regulations: The Federal rules restrict any use of the information to criminally investigate or prosecute any alcohol or drug abuse patient.[facility] Center[facility] the event this information is protected by the Federal Confidentiality of Alcohol and Drug Abuse Patient Records regulations: The Federal rules restrict any use of the information to criminally investigate or prosecute any alcohol or drug abuse patient.[facility] Center[facility] the event this information is protected by the Federal Confidentiality of Alcohol and Drug Abuse Patient Records regulations: The Federal rules restrict any use of the information to criminally investigate or prosecute any alcohol or drug abuse patient.[facility] Center[facility] the event this information is protected by the Federal Confidentiality of Alcohol and Drug Abuse Patient Records regulations: The Federal rules restrict any use of the information to criminally investigate or prosecute any alcohol or drug abuse patient.[facility] Center[facility] the event this information is protected by the Federal Confidentiality of Alcohol and Drug Abuse Patient Records regulations: The Federal rules restrict any use of the information to criminally investigate or prosecute any alcohol or drug abuse patient.[facility] Center[facility] the event this information is protected by the Federal Confidentiality of Alcohol and Drug Abuse Patient Records regulations: The Federal rules restrict any use of the information to criminally investigate or prosecute any alcohol or drug abuse patient.[facility] CenterIn the event this information is protected by the Federal Confidentiality of Alcohol and Drug Abuse Patient Records regulations: The Federal rules restrict any use of the information to criminally investigate or prosecute any alcohol or drug abuse patient.[facility] CenterIn the event this information is protected by the Federal Confidentiality of Alcohol and Drug Abuse Patient Records regulations: The Federal rules restrict any use of the information to criminally investigate or prosecute any alcohol or drug abuse patient.[facility] CenterIn the event this information is protected by the Federal Confidentiality of Alcohol and Drug Abuse Patient Records regulations: The Federal rules restrict any use of the information to criminally investigate or prosecute any alcohol or drug abuse patient.[facility] CenterIn the event this information is protected by the Federal Confidentiality of Alcohol and Drug Abuse Patient Records regulations: The Federal rules restrict any use of the information to criminally investigate or prosecute any alcohol or drug abuse patient.[facility] CenterIn the event this information is protected by the Federal Confidentiality of Alcohol and Drug Abuse Patient Records regulations: The Federal rules restrict any use of the information to criminally investigate or prosecute any alcohol or drug abuse patient.[facility] Care Teams (unrecognized sec tion and content) [employer] Relationship Specialty Start Date End Date Eduin Granados MD PCP - General Internal Medicine 02/18/16 [employer] Relationship Specialty Start Date End Date Eduin Granados MD PCP - General Internal Medicine 02/18/16 [employer] Relationship Specialty Start Date End Date Eduin Granados MD PCP - General Internal Medicine 02/18/16 [employer] Relationship Specialty Start Date End Date Eduin Granados MD PCP - General Internal Medicine 02/18/16 [employer] Relationship Specialty Start Date End Date Eduin Granados MD PCP - General Internal Medicine 02/18/16 [employer] Relationship Specialty Start Date End Date Eduin Granados MD PCP - General Internal Medicine 02/18/16 [employer] Relationship Specialty Start Date End Date Eduin Granados MD PCP - General Internal Medicine 02/18/16 [employer] Relationship Specialty Start Date End Date Eduin Granados MD PCP - General Internal Medicine 02/18/16 [employer] Relationship Specialty Start Date End Date Eduin Granados MD PCP - General Internal Medicine 02/18/16 [employer] Relationship Specialty Start Date End Date Eduin Granados MD PCP - General Internal Medicine 02/18/16 [employer] Relationship Specialty Start Date End Date Eduin Granados MD PCP - General Internal Medicine 02/18/16 [employer] Relationship Specialty Start Date End Date Eduin Granados MD PCP - General Internal Medicine 02/18/16 [employer] Relationship Specialty Start Date End Date Eduin Granados MD PCP - General Internal Medicine 02/18/16 [employer] Relationship Specialty Start Date End Date Eduin Granados MD PCP - General Internal Medicine 02/18/16 [employer] Relationship Specialty Start Date End Date Eduin Granados MD PCP - General Internal Medicine 02/18/16 [employer] Relationship Specialty Start Date End Date Eduin Granados MD PCP - General Internal Medicine 02/18/16 Reason for Visit (unrecogniz ed section and content) Reason Comments Physical Therapy PT Progress Note Specialty Diagnoses / Procedures Referred By Valeria t Referred To Contact [facility] Diagnoses Status post reverse total shoulder replacement, unspecified laterality Procedures CONSULT TO PHYSICAL THERAPY PHYSICAL THERAPY EVALUATION HIGH COMPLEX 45 MINS Ida Bolton PA-C [address] [place] [address] [facility] [address] [address] Referral ID Status Reason Start Date Expiration Date Visits Requested Visits Authorized [id number] Authorized PCP Requested Referral Auto-Generate d Referral 05/14/2023 05/13/2024 99 99 Reason Comments Physical Therapy Reason Comments Appointment Physical therapy Reason Comments Anesthesia Consult Reason Comments PT Eval Patient Education Reason Comments Established Patient Follow Up Post Op Reason Comments New Patient Reason Comments Consult Elevated WBC FOR RECORDS PERTAINING TO PATIENTS WHO ARE OR HAVE BEEN ENROLLED IN A CHEMICAL DEPENDENCY/SUBSTANCEABUSE PROGRAM, SOME INFORMATION MAY BE OMITTED. This clinical summary was aggregated from multiple sources. Caution should be exercised in using it in the provision of clinical care. This summary normalizes information from multiple sources, and as a consequence, information in this document may materially change the coding, format and clinical context of patient data. In addition, data may be omitted in some cases. CLINICAL DECISIONS SHOULD BE BASED ON THE PRIMARY CLINICAL RECORDS. [employer] provides no warranty or guarantee of the accuracy or completeness of information in this document.
--- NOTE | 2024-06-18 18:26 | STRESSREP ---
Stress Test Report Exercise myocardial perfusion stress test. 74-year-old male with a history of coronary disease Stress protocol: Resting EKG demonstrates sinus bradycardia with a rate of 56 bpm resting blood pressure is 152/80 mmHg. The patient exercised according to the regular Javier protocol for a total duration of 4 minutes attaining a maximum heart rate of 114 bpm which was 78% of maximum predicted heart rate; the maximum workload was 7 metabolic equivalents. At rest there were no ST or T wave changes noted to suggest ischemia and at peak exercise upsloping ST changes only were noted which did not meet the criteria for ischemia. No clinical angina was noted the test was terminated due to the target heart rate being achieved/fatigue. The peak blood pressure was 162/82 mmHg. Rate-pressure product was 14,400. Myocardial perfusion protocol. 9.5 mCi of technetium 99m sestamibi was injected at rest. The patient exercised according to regular Javier protocol for total duration of 4 minutes and at peak exercise 32.1 mCi of technetium 99m sestamibi was injected stress images were obtained stress and rest images were reconstructed in comparing the short axis vertical long and horizontal long axis. Gated images were also obtained. Perfusion SPECT analysis: Review of the stress images demonstrate normal uptake of tracer noted in all areas of the myocardium. The resting images similarly demonstrate normal uptake of tracer noted in all areas of the myocardium. No areas of reversibility are noted to suggest ischemia no previous infarct was noted. Gated SPECT analysis: The gated ejection fraction is 74%. Conclusion: Normal exercise myocardial perfusion stress test at a moderate workload Preserved ejection fraction.
== END | disposition home or self-care (01) ==
PROVIDERS: PCP Internal Medicine Pulmonary Disease; Referring Provider Internal Medicine Cardiovascular Disease; Visit Provider Internal Medicine Cardiovascular Disease
DX: I25.10 Atherosclerotic heart disease of native coronary artery without angina pectoris (principal); I10 Essential (primary) hypertension; Z95.5 Presence of coronary angioplasty implant and graft
CPT/HCPCS: 78452; 93017; A9500; A4216